=== PATIENT | female | born 1960 | race Caucasian/White ===

== ENCOUNTER 2018-08-18 19:04 | Emergency (ER) | payer OTHER ==
--- OUTSIDE RECORDS SUMMARY | 2018-08-18 19:06 | XMS REPORT | Clinical Summary ---
:1960 Author Organization [facility] Address [address] [place] [address] Care Team Providers Name Role Phone Nilo Carcamo MD Primary Care Provider Allergies No Known Allergies Current Medications Prescription Sig. Disp. Refills Start Date End Date Status glimepiride (AMARYL) Take 2 mg by Active 2 MG tablet mouth daily before breakfast. atorvastatin Take 80 mg by Active (LIPITOR) 80 MG mouth daily. tablet lisinopril Take 40 mg by Active (PRINIVIL,ZESTRIL) 40 mouth daily. mg tablet levothyroxine Take 175 mcg by Active (SYNTHROID, LEVOXYL) mouth every 175 mcg tablet morning. liraglutide (VICTOZA) Inject 1.8 mg Active 0.6 mg/0.1 mL (18 under the skin mg/3 mL) pen injector daily. magnesium oxide 250 Take 250 mg by Active mg tablet mouth daily. aspirin (ECOTRIN) 81 Take 81 mg by Active MG enteric coated mouth daily. tablet warfarin (COUMADIN) Take total of 08/11/2017 Active 10 MG tablet warfarin 11 mg daily amLODIPine (NORVASC) Take 1 tablet 30 tablet 0 08/11/2017 09/10/2017 10 mg tablet (10 mg total) by mouth daily for 30 days. docusate sodium Take 1 capsule 60 capsule 0 08/11/2017 09/10/2017 (COLACE) 100 MG (100 mg total) capsule by mouth 2 (two) times a day for 30 days. polyethylene glycol Take 17 g by 30 packet 0 08/11/2017 09/10/2017 (MIRALAX) 17 gram mouth daily for packet 30 days. HYDROcodone-acetamino Take 1 tablet 08/11/2017 08/26/2017 phen (NORCO) 5-325 mg by mouth every per tablet 6 (six) hours as needed (pain) for up to 15 days. Max Daily Amount: 4 tablets lidocaine (LIDODERM) Place 1 patch 30 patch 0 08/11/2017 09/10/2017 5 % on the skin daily for 30 days. Remove & Discard patch within 12 hours or as directed by warfarin (COUMADIN) 1 Take 1 tablet 30 tablet 0 08/11/2017 09/10/2017 MG tablet (1 mg total) by mouth daily for 30 days. enoxaparin (LOVENOX) Inject 1 mL 60 mL 0 08/11/2017 08/21/2017 100 mg/mL syringe (100 mg total) under the skin every 12 (twelve) hours for 10 days. 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 (Primary Dx); Malignant neoplasm of corpus uteri after 08/17/2017 Immunizations Name Dates Previously Given Next Due Tdap 04/15/2017 Family History Medical History Relation Name Comments COPD Brother Diabetes Brother Heart disease Father Stroke Father Heart disease Mother Relation Name Status Comments Brother Father Mother Social History Tobacco Use Types Packs/Day Years Used Date Never Smoker Alcohol Use Drinks/Week oz/Week Comments No Sex Assigned at Date Recorded Not on file Last Filed Vital Signs Not on file Plan of Treatment Health Maintenance Due Date Last Done Comments CERVICAL CANCER SCREENING 1980 BREAST CANCER SCREENING 2009 COLON CANCER SCREENING 2009 SHINGRIX VACCINE (#1) 2009 INFLUENZA VACCINE 06/07/2018 Procedures Procedure Name Priority Date/Time Associated Diagnosis Comments PET CT SKULL BASE Routine 07/27/2018 10:35 Solitary plasmacytoma Results for this TO MID THIGH AM CDT not having achieved procedure are in remission the results Malignant neoplasm of section. corpus uteri POC GLUCOSE Routine 07/27/2018 9:07 Results for this AM CDT procedure are in the results section. TRANSFUSE FRESH STAT 07/12/2018 5:42 FROZEN PLASMA PM CDT after 08/17/2017 Results PET/CT Skull Base To Mid Thigh (07/27/2018 10:35 AM) Narrative Performed At PROCEDURE:PET CT SKULL BASE TO MID THIGH RADIANT INDICATION:Restaging plasmocytoma, uterine cancer, subsequent treatment strategy. TECHNIQUE:Blood glucose measured at the time of injection was 167 mg/dL. The patient was then injected with 12.1 mCi of 18F-FDG, IV.Approximately one hour later, PET images were acquired from the skull base to the mid thighs. Corresponding, low dose, non-contrast CT scanning was performed as part of the attenuation correction process.Automated dose exposure control was utilized. COMPARISON:PET CT scan dated 07/15/2017. FINDINGS: Head and neck:No suspicious brain uptake.Normal uptake is seen in the visualized sinuses, orbits, nasopharynx, and oropharynx.Uptake by the larynx is normal.No suspicious neck lymph node uptake. Chest:No abnormal mediastinal, hilar, or axillary lymph node uptake.No suspicious pulmonary uptake. Abdomen:Normal uptake is seen in the stomach, spleen, pancreas, liver, and adrenal glands.No abnormal retroperitoneal or mesenteric lymph node uptake.No suspicious bowel uptake.Left-sided feeding tube is noted. Pelvis:Physiologic bowel uptake.No abnormal pelvic sidewall or inguinal lymph node uptake. Review of the osseous structures demonstrates no suspicious uptake.Stable, treated plasmacytoma in the spine and right 12th rib. IMPRESSION: 1.Stable study.No evidence for recurrent plasmacytoma and no evidence for recurrent or metastatic uterine cancer. [facility]-[id number] Procedure Note Interface, Radiology Results Incoming - 07/27/2018 11:50 AM CDT PROCEDURE: PET CT SKULL BASE TO MID THIGH INDICATION: Restaging plasmocytoma, uterine cancer, subsequent treatment strategy. TECHNIQUE: Blood glucose measured at the time of injection was 167 mg/dL. The patient was then injected with 12.1 mCi of 18F-FDG, IV. Approximately one hour later, PET images were acquired from the skull base to the mid thighs. Corresponding, low dose, non-contrast CT scanning was performed as part of the attenuation correction process. Automated dose exposure control was utilized. COMPARISON: PET CT scan dated 07/15/2017. FINDINGS: Head and neck: No suspicious brain uptake. Normal uptake is seen in the visualized sinuses, orbits, nasopharynx, and oropharynx. Uptake by the larynx is normal. No suspicious neck lymph node uptake. Chest: No abnormal mediastinal, hilar, or axillary lymph node uptake. No suspicious pulmonary uptake. Abdomen: Normal uptake is seen in the stomach, spleen, pancreas, liver, and adrenal glands. No abnormal retroperitoneal or mesenteric lymph node uptake. No suspicious bowel uptake. Left-sided feeding tube is noted. Pelvis: Physiologic bowel uptake. No abnormal pelvic sidewall or inguinal lymph node uptake. Review of the osseous structures demonstrates no suspicious uptake. Stable, treated plasmacytoma in the spine and right 12th rib. IMPRESSION: 1. Stable study. No evidence for recurrent plasmacytoma and no evidence for recurrent or metastatic uterine cancer. [facility]-[id number] Performing Organization Address [facility] Cent[facility]ode Phone Number [facility] [address] [place] [address] POC glucose (07/27/2018 9:07 AM) POC glucose 167 (H) 65 - 99 mg/dL [facility] DEPARTMENT OF PATHOLOGY AND Comment: GENOMIC MEDICINE No Action Needed Meter ID: [id number] Field Reviewer: Carlos Lewis Performing Organization Address [facility] Centercode Phone Number [facility] DEPARTMENT OF PATHOLOGY AND [address] [place] [phone] GENOMIC MEDICINE Transfuse fresh frozen plasma (07/12/2018 5:42 PM)after 08/17/2017 Insurance Payer Benefit Plan / Group Subscriber ID Type Phone Address AETNA AETNA HMO,POS,EPO, MC/EC xxxxxxxxx HMO Home: [id number] [phone] [place] [phone]
--- OUTSIDE RECORDS SUMMARY | 2018-08-18 19:07 | XMS REPORT | Clinical Summary ---
:1960 Author Organization [facility] Address [address] [place] [address] Phone Care Team Providers Name Role Phone Unavailable Primary Care Provider Unavailable Allergies No Known Allergies Current Medications Prescription Sig. Disp. Refills Start End Date Status Date aspirin-dipyridamo Take 1 capsule by Active le (AGGRENOX) mouth 2 (two) times 25-200 mg per 12 daily. hr capsule levothyroxine Take 175 mcg by Active (SYNTHROID, mouth Every morning LEVOTHROID) 175 on an empty MCG tablet stomach. heparin injection Inject 1 mL (5,000 1 mL 0 Active 5,000 units/mL for Units total) 8 DVT subcutaneously prophylaxis/dialys every 12 (twelve) is lock/IV bolus hours. liraglutide 0.6 Inject 0.1 mLs (0.6 0 Active mg/0.1 mL (18 mg/3 mg total) 8 mL) PnIj subcutaneously daily. ipratropium Take 2.5 mLs (0.5 75 mL 0 05/26/20 Active (ATROVENT) 0.02 % mg total) by 8 19 nebulizer solution nebulization every 6 (six) hours. glimepiride Take 2 mg by mouth 05/26/20 Discontinued (AMARYL) 2 MG 2 (two) times 18 tablet daily. canagliflozin Take 300 mg by 05/26/20 Discontinued (INVOKANA) 300 mg mouth daily. 18 tablet lisinopril Take 40 mg by mouth 05/26/20 Discontinued (PRINIVIL,ZESTRIL) daily. 18 40 MG tablet metoprolol Take 100 mg by 05/26/20 Discontinued (TOPROL-XL) 100 MG mouth daily. 18 24 hr tablet liraglutide 0.6 Inject 05/26/20 Discontinued mg/0.1 mL (18 mg/3 subcutaneously. 18 mL) PnIj traMADol (ULTRAM) Take 50 mg by mouth 05/26/20 Discontinued 50 mg tablet every 6 (six) hours 18 as needed for Pain. aspirin 81 MG Take 1 tablet (81 90 tablet 1 10/12/20 chewable tablet mg total) by mouth 6 17 daily. atorvastatin Take 1 tablet (80 90 tablet 1 10/12/20 (LIPITOR) 80 MG mg total) by mouth 6 17 tablet nightly. carvedilol (COREG) Take 1 tablet (6.25 0 06/25/20 6.25 MG tablet mg total) by mouth 8 18 2 (two) times daily for 30 days. folic acid Take 1 tablet (1 mg 30 tablet 0 05/26/20 Discontinued (FOLVITE) 1 MG total) by mouth 8 18 tablet daily for 30 days. ipratropium Take 2.5 mLs (0.5 75 mL 0 05/26/20 Discontinued (ATROVENT) 0.02 % mg total) by 8 18 nebulizer solution nebulization every 6 (six) hours. folic acid Take 1 tablet (1 mg 30 tablet 0 06/26/20 (FOLVITE) 1 MG total) by mouth 8 18 tablet daily for 30 days. Active Problems Problem Noted Date Metabolic encephalopathy 05/18/2018 Dysphagia as late effect of cerebrovascular accident (CVA) 05/18/2018 Metabolic acidosis 05/18/2018 Coagulopathy (HCC) 05/18/2018 Bacteremia due to Klebsiella pneumoniae 05/18/2018 Physical deconditioning 05/18/2018 Type 2 diabetes mellitus with neurologic complication, without long-term 05/18 current use of insulin ([facility]) Hyperphosphatemia 05/18/2018 Septic shock ([facility]) 05/15/2018 Acute cholecystitis due to biliary calculus 05/15/2018 Choledocholithiasis with acute cholecystitis 05/15/2018 Acute hypoxemic respiratory failure (HCC) 05/15/2018 Lactic acidosis 05/15/2018 Acute renal failure with tubular necrosis (HCC) 05/15/2018 Anemia 05/15/2018 Sepsis, due to unspecified organism ([facility]) 05/14/2018 Stroke (HCC) 10/06/2016 Encounter for screening for diabetes mellitus 10/06/2016 HTN (hypertension) 10/06/2016 Hypothyroid 10/06/2016 Encounters Date Type Specialty Care Team Description 05/15/2018 Orders Only General Internal Medicine 05/14/2018 - Hospital Encounter General Internal Gurjit Cedeno Sepsis, due to 05/26/2018 Cortney Mendez MD unspecified organism Telma, ([facility]) (Primary Laboy Enrrique, Dx);Septic shock ([facility]);Fever, Simona, Vik unspecified fever MD Brice cause;Lactic Martins, Abner acidosis;Acute MD Judith hypoxemic respiratory failure ([facility]);Acute renal failure, unspecified acute renal failure type ([facility]);Acute cholecystitis due to biliary calculus;Acute encephalopathy;Acute renal failure with tubular necrosis ([facility]);Bacteremia due to Klebsiella pneumoniae;Choledocho lithiasis with acute cholecystitis after 08/17/2017 Social History Tobacco Use Types Packs/Day Years Used Date Never Smoker Smokeless Tobacco: Never Used Tobacco Cessation: Counseling Given: No Alcohol Use Drinks/Week oz/Week Comments Yes 0 Cans of beer 0.0 1 can i beer every couple of months Sex Assigned at Date Recorded Not on file Last Filed Vital Signs Vital Sign Reading Time Taken Blood Pressure 124/59 05/26/2018 6:29 PM CDT Pulse 81 05/26/2018 6:29 PM CDT Temperature 36.7 C (98 F) 05/26/2018 6:29 PM CDT Respiratory Rate 18 05/26/2018 6:29 PM CDT Oxygen Saturation 95% 05/26/2018 6:29 PM CDT Inhaled Oxygen Concentration - - Weight 92.3 kg (203 lb 7.8 oz) 05/22/2018 7:00 AM CDT Height 172.7 cm (5' 8") 05/15/2018 2:30 AM CDT Body Mass Index 30.94 05/22/2018 7:00 AM CDT Plan of Treatment Not on file Procedures Procedure Name Priority Date/Time Associated Diagnosis Comments CENTRAL LINE Routine 05/17/2018 11:28 PM Results for this CDT procedure are in the results section. CRITICAL CARE Routine 05/15/2018 6:16 PM Results for this CDT procedure are in the results section. INSERT EMERGENCY Routine 05/15/2018 6:16 PM Results for this ENDOTRACH AIRWAY CDT procedure are in the results section. VENT MANAGEMENT, Routine 05/15/2018 6:16 PM Results for this INPATIENT, INITIAL CDT procedure are in DAY the results section. US GUIDE, VASCULAR Routine 05/15/2018 6:16 PM Results for this ACCESS CDT procedure are in the results section. INSERT NON-TUNNEL Routine 05/15/2018 6:16 PM Results for this CV CATH CDT procedure are in the results section. after 08/17/2017 Results RHYTHM STRIP - SCAN (05/30/2018 9:01 AM)POC-Glucose meter (05/26/2018 6:28 PM) Only the most recent of55 resultswithin the time period is included. Component Value Ref Range POC-Glucose Meter 153 (H)Comment: TESTED AT [address] 70 - 110 mg/[place] [address] Specimen Performing Laboratory Blood [facility] [address] [address] IR T-tube Catheter Cholangiogram (05/26/2018 5:50 PM) Specimen Performing Laboratory [facility] Narrative FINAL REPORT Cholecystostomy tube evaluation. History: 57-year-old female with shortness cholecystitis status post percutaneous cholecystotomy with decreased drain output Modality: Sonography and fluoroscopy. Sedation: None. Office Machine Servicer Apprentice:Lavon Tillman MD. Inspector Bicycle:None. Approach: Via indwelling cholecystostomy. Estimated blood loss:< 5 cc. Specimen: None. Fluoroscopy Time: 0.5 min. Reference Air Kerma (Ka, r): 11.9 mGy. Technique/findings: Contrast was injected via the indwelling cholecystostomy tube demonstrating free intraperitoneal spill compatible with dislodged catheter. The dislodged catheter was removed and a sterile dressing applied. Limited sonographic images were obtained of the right upper quadrant demonstrating nondistended gallbladder containing gallstones. There is mild gallbladder wall thickening. There is no evidence for pericholecystic fluid or true sonographic Winston's sign. Impression: Cholecystostomy tube evaluation demonstrates dislodged catheter no longer within the gallbladder. Catheter successfully removed without complication. Ultrasound images demonstrate cholelithiasis with nondistended gallbladder. New tube placement currently not indicated (and no leukocytosis or sonographic findings for acute cholecystitis). Signed: Lavon Tillman MD Report Verified Date/Time:05/26/2018 18:37:36 Reading Location: [place] [address] Angio Body Reading Room Procedure Note Interface, External Ris In - 05/26/2018 6:39 PM CDT FINAL REPORT Cholecystostomy tube evaluation. History: 57-year-old female with shortness cholecystitis status post percutaneous cholecystotomy with decreased drain output Modality: Sonography and fluoroscopy. Sedation: None. Office Machine Servicer Apprentice: Lavon Tillman MD. Inspector Bicycle: None. Approach: Via indwelling cholecystostomy. Estimated blood loss: < 5 cc. Specimen: None. Fluoroscopy Time: 0.5 min. Reference Air Kerma (Ka, r): 11.9 mGy. Technique/findings: Contrast was injected via the indwelling cholecystostomy tube demonstrating free intraperitoneal spill compatible with dislodged catheter. The dislodged catheter was removed and a sterile dressing applied. Limited sonographic images were obtained of the right upper quadrant demonstrating nondistended gallbladder containing gallstones. There is mild gallbladder wall thickening. There is no evidence for pericholecystic fluid or true sonographic Winston's sign. Impression: Cholecystostomy tube evaluation demonstrates dislodged catheter no longer within the gallbladder. Catheter successfully removed without complication. Ultrasound images demonstrate cholelithiasis with nondistended gallbladder. New tube placement currently not indicated (and no leukocytosis or sonographic findings for acute cholecystitis). Signed: Lavon Tillman MD Report Verified Date/Time: 05/26/2018 18:37:36 Reading Location: [place] [address] Angio Body Reading Room Hemodialysis (05/26/2018 12:47 PM)Only the most recent of2 resultswithin the time period is included. Narrative Zia Carranza RN 05/26/2018 12:47 PM HD treatment completed, tolerated well. Net UF -1.5L in 4hrs. CVC care provided, packed with heparin as ordered.Pt in stable condition, unable to report to the primary care RN.No answer on the phone, called 3x. Lab Results Component Value Date GLUCOSE 154 (H) 05/26/2018 GLUCOSE 154 (H) 05/26/2018 CALCIUM 8.5 05/26/2018 CALCIUM 8.5 05/26/2018 NA 140 05/26/2018 NA 140 05/26/2018 K 3.6 05/26/2018 K 3.6 05/26/2018 CO2 25 05/26/2018 CO2 25 05/26/2018 CL 101 05/26/2018 CL 101 05/26/2018 BUN 54 (H) 05/26/2018 BUN 54 (H) 05/26/2018 CREATININE 6.06 (H) 05/26/2018 CREATININE 6.06 (H) 05/26/2018 Lab Results Component Value Date WBC 5.1 05/26/2018 HGB 9.0 (L) 05/26/2018 HCT 30.2 (L) 05/26/2018 MCV 83.4 05/26/2018 PLT 225 05/26/2018 Lab Results Component Value Date HEPBSAG Nonreactive 05/17/2018 Prothrombin time/INR (05/26/2018 12:05 PM)Only the most recent of8 resultswithin the time period is included. Component Value Ref Range Protime 13.2 11.7 - 14.7 seconds INR 1.0 <=5.9 Specimen Performing Laboratory Blood - Central Venous Line [address] [address] Narrative RECOMMENDED COUMADIN/WARFARIN INR THERAPY RANGES STANDARD DOSE: 2.0 - 3.0 Includes: PROPHYLAXIS for venous thrombosis, systemic embolization; TREATMENT for venous thrombosis and/or pulmonary embolus. HIGH RISK: Target INR is 2.5-3.5 for patients with mechanical heart valves. Calcium, Ionized (05/26/2018 8:29 AM)Only the most recent of9 resultswithin the time period is included. Component Value Ref Range Calcium, Ion 1.02 (L) 1.12 - 1.27 mmol/L pH, Blood 7.33 Specimen Performing Laboratory Blood - Central Venous Line [address] [address] CBC with platelet count + automated diff (05/26/2018 8:29 AM)Only the most recent of15 resultswithin the time period is included. Component Value Ref Range WBC 5.1 3.5 - 10.5 K/L RBC 3.62 (L) 3.93 - 5.22 M/L Hemoglobin 9.0 (L) 11.2 - 15.7 GM/DL Hematocrit 30.2 (L) 34.1 - 44.9 % MCV 83.4 79.4 - 94.8 fL MCH 24.9 (L) 25.6 - 32.2 pg MCHC 29.8 (L) 32.2 - 35.5 GM/DL RDW 15.3 (H) 11.7 - 14.4 % Platelets 225 150 - 450 K/CU MM MPV 10.2 9.4 - 12.3 fL nRBC 0 0 - 0 /100 WBC % Neutros 72 % % Lymphs 17 % % Monos 8 % % Eos 2 % % Baso 0 % # Neutros 3.64 1.56 - 6.13 K/L # Lymphs 0.87 (L) 1.18 - 3.74 K/L # Monos 0.42 (H) 0.24 - 0.36 K/L # Eos 0.09 0.04 - 0.36 K/L # Baso 0.01 0.01 - 0.08 K/L Immature Granulocytes-Relative 1 0 - 1 % Specimen Performing Laboratory Blood - Central Venous Line [address] [address] CBC with platelet count + automated diff (05/26/2018 8:29 AM)Only the most recent of15 resultswithin the time period is included. Specimen Performing Laboratory Blood Narrative The following orders were created for panel order CBC with platelet count + automated diff. Procedure Abnormality Status --------- ------ CBC with platelet count ...[[id number]]AbnormalFinal result Please view results for these tests on the individual orders. Phosphorus (05/26/2018 8:29 AM)Only the most recent of13 resultswithin the time period is included. Component Value Ref Range Phosphorus 6.0 (H) 2.3 - 4.7 mg/dL Specimen Performing Laboratory Blood - Central Venous Line [address] [address] Magnesium (05/26/2018 8:29 AM)Only the most recent of14 resultswithin the time period is included. Component Value Ref Range Magnesium 2.1 1.6 - 2.6 mg/dL Specimen Performing Laboratory Blood - Central Venous Line [address] [address] Hepatic function panel (05/26/2018 8:29 AM)Only the most recent of12 resultswithin the time period is included. Component Value Ref Range Protein, Total 6.3 6.0 - 8.3 gm/dL Albumin 3.2 (L) 3.5 - 5.0 g/dL Total Bilirubin 0.4 0.2 - 1.2 mg/dL Bilirubin, Direct 0.3 0.1 - 0.5 mg/dL Alkaline Phosphatase 406 (H) 40 - 150 U/L AST 23 5 - 34 U/L ALT 24 6 - 55 U/L Specimen Performing Laboratory Blood - Central Venous Line [address] [address] Comprehensive metabolic panel (05/26/2018 8:29 AM)Only the most recent of8 resultswithin the time period is included. Component Value Ref Range Protein, Total 6.3 6.0 - 8.3 gm/dL Albumin 3.2 (L) 3.5 - 5.0 g/dL Alkaline Phosphatase 406 (H) 40 - 150 U/L Total Bilirubin 0.4 0.2 - 1.2 mg/dL Sodium 140 136 - 145 meq/L Potassium 3.6 3.5 - 5.1 meq/L Chloride 101 98 - 107 meq/L CO2 25 22 - 29 meq/L BUN 54 (H) 7 - 21 mg/dL Creatinine 6.06 (H) 0.57 - 1.25 mg/dL Glucose 154 (H) 70 - 105 mg/dL Calcium 8.5 8.4 - 10.2 mg/dL AST 23 5 - 34 U/L ALT 24 6 - 55 U/L EGFR 7Comment: ESTIMATED GFR IS NOT ACCURATE mL/min/1.73 sq m CREATININE CLEARANCE IN PREDICTING GLOMERULAR FILTRATION RATE. ESTIMATED GFR IS NOT APPLICABLE FOR DIALYSIS PATIENTS. Specimen Performing Laboratory Blood - Central Venous Line [address] [address] Basic Metabolic Panel (05/26/2018 8:29 AM)Only the most recent of11 resultswithin the time period is included. Component Value Ref Range Sodium 140 136 - 145 meq/L Potassium 3.6 3.5 - 5.1 meq/L Chloride 101 98 - 107 meq/L CO2 25 22 - 29 meq/L BUN 54 (H) 7 - 21 mg/dL Creatinine 6.06 (H) 0.57 - 1.25 mg/dL Glucose 154 (H) 70 - 105 mg/dL Calcium 8.5 8.4 - 10.2 mg/dL EGFR 7Comment: ESTIMATED GFR IS NOT ACCURATE CREATININE mL/min/1.73 sq m CLEARANCE IN PREDICTING GLOMERULAR FILTRATION RATE. ESTIMATED GFR IS NOT APPLICABLE FOR DIALYSIS PATIENTS. Specimen Performing Laboratory Blood - [place] [address] US abdomen limited (05/26/2018 1:38 AM)Only the most recent of2 resultswithin the time period is included. Specimen Performing Laboratory [employer] FINAL REPORT Exam: Limited abdominal ultrasound. Clinical History:cholecystostomy tube placement . Findings: Sonographic evaluation of the right upper quadrant of the abdomen was performed. Comparison is made to abdominal ultrasound 05/15/2018. Liver: 19.1 cm in length at the right midclavicular line. Increased echogenicity.No lesion is identified by ultrasound. Main portal vein is patent measuring 1.3 cm in diameter, and demonstrates hepatopetal flow. Biliary tree:Common duct 7 mm (top normal).No intrahepatic biliary ductal dilatation. Gallbladder:There is a cholecystostomy tube in place. The gallbladder is mildly distended and contains multiple stones and sludge. There is mild gallbladder wall thickening measuring 5 mm, nonspecific.There is no pericholecystic fluid or sonographic Winston's sign. Pancreas: Partially visualized, unremarkable. Ascites:None seen. Right kidney:12.4 x 6.3 x 5.9 cm with cortical thickness of 1.5 cm. Normal cortical echogenicity.No mass.No shadowing calculus.No hydronephrosis. IVC/Aorta:Segments partially seen.Unremarkable. Impression: Cholecystostomy tube in place. Cholelithiasis without definite sonographic evidence of acute cholecystitis. No biliary ductal dilatation. Hepatomegaly. Echogenic liver which may be seen with parenchymal disease such as fatty infiltration. Signed: Rashi Hdz MD Report Verified Date/Time:05/26/2018 04:03:41 Reading Location: [address] Body Reading Room Procedure Note Interface, External Ris In - 05/26/2018 4:05 AM CDT FINAL REPORT Exam: Limited abdominal ultrasound. Clinical History: cholecystostomy tube placement . Findings: Sonographic evaluation of the right upper quadrant of the abdomen was performed. Comparison is made to abdominal ultrasound 05/15/2018. Liver: 19.1 cm in length at the right midclavicular line. Increased echogenicity. No lesion is identified by ultrasound. Main portal vein is patent measuring 1.3 cm in diameter, and demonstrates hepatopetal flow. Biliary tree: Common duct 7 mm (top normal). No intrahepatic biliary ductal dilatation. Gallbladder: There is a cholecystostomy tube in place. The gallbladder is mildly distended and contains multiple stones and sludge. There is mild gallbladder wall thickening measuring 5 mm, nonspecific. There is no pericholecystic fluid or sonographic Winston's sign. Pancreas: Partially visualized, unremarkable. Ascites: None seen. Right kidney: 12.4 x 6.3 x 5.9 cm with cortical thickness of 1.5 cm. Normal cortical echogenicity. No mass. No shadowing calculus. No hydronephrosis. IVC/Aorta: Segments partially seen. Unremarkable. Impression: Cholecystostomy tube in place. Cholelithiasis without definite sonographic evidence of acute cholecystitis. No biliary ductal dilatation. Hepatomegaly. Echogenic liver which may be seen with parenchymal disease such as fatty infiltration. Signed: Rashi Hdz MD Report Verified Date/Time: 05/26/2018 04:03:41 Reading Location: [address] Body Reading Room Potassium (05/25/2018 4:44 PM) Component Value Ref Range Potassium 3.8 3.5 - 5.1 meq/L Specimen Performing Laboratory Blood - Arm, Left [address] [address] [place] aspiration or injection (05/24/2018 11:58 AM) Specimen Performing Laboratory [facility] Narrative FINAL REPORT Indication: cholecystostomy tube-low output TECHNIQUE: Fluoroscopy-guided injection of the cholecystostomy tube was attempted. After obtaining a flooring salesperson view, contrast injection of the cholecystostomy tube was unsuccessfully attempted. COMPARISON: None Total fluoroscopy time: 0.3 minutes Total number of fluoroscopy images: Four Discussion: The flooring salesperson view demonstrates a cholecystostomy catheter in the right upper abdomen laterally. Despite multiple attempts to inject contrast into the cholecystostomy tube, there is significant resistance to injection and no contrast was seen in the tube or gallbladder lumen likely secondary to clogged cholecystostomy tube. Signed: Richard Martin MD Report Verified Date/Time:05/24/2018 12:51:56 Reading Location: [address] Ortho Consult Reading Room Procedure Note Interface, External Ris In - 05/24/2018 12:54 PM CDT FINAL REPORT Indication: cholecystostomy tube-low output TECHNIQUE: Fluoroscopy-guided injection of the cholecystostomy tube was attempted. After obtaining a flooring salesperson view, contrast injection of the cholecystostomy tube was unsuccessfully attempted. COMPARISON: None Total fluoroscopy time: 0.3 minutes Total number of fluoroscopy images: Four Discussion: The flooring salesperson view demonstrates a cholecystostomy catheter in the right upper abdomen laterally. Despite multiple attempts to inject contrast into the cholecystostomy tube, there is significant resistance to injection and no contrast was seen in the tube or gallbladder lumen likely secondary to clogged cholecystostomy tube. Signed: Richard Martin MD Report Verified Date/Time: 05/24/2018 12:51:56 Reading Location: [address] Consult Reading Room esoph swallow funct with cine video (05/24/2018 11:47 AM) Specimen Performing Laboratory [facility] Narrative FINAL REPORT Modified barium swallow with speech pathology History: dysphagia Technique: Modified barium swallow was performed in conjunction with speech pathology. Examination utilized various textures of barium. Fluoroscopic observation was performed during swallowing. Total fluoroscopy time: 1.2 minutes Total number of films: 1 IMPRESSION: There is silent laryngeal aspiration with thin, nectar thick and honey thick liquid barium. Please refer to the speech pathology report for further details. Signed: Richard Martin MD Report Verified Date/Time:05/24/2018 12:11:37 Reading Location: [address] Ortho Consult Reading Room Procedure Note Interface, External Ris In - 05/24/2018 12:13 PM CDT FINAL REPORT Modified barium swallow with speech pathology History: dysphagia Technique: Modified barium swallow was performed in conjunction with speech pathology. Examination utilized various textures of barium. Fluoroscopic observation was performed during swallowing. Total fluoroscopy time: 1.2 minutes Total number of films: 1 IMPRESSION: There is silent laryngeal aspiration with thin, nectar thick and honey thick liquid barium. Please refer to the speech pathology report for further details. Signed: Richard Martin MD Report Verified Date/Time: 05/24/2018 12:11:37 Reading Location: [facility] [id number] Ortho Consult Reading Room Hemoglobin A1c (05/24/2018 7:15 AM) Component Value Ref Range Hemoglobin A1C 6.8 (H) 4.3 - 6.1 % Specimen Performing [place] [address] IR Tunneled Catheter Insertion (05/23/2018 4:15 PM) Specimen Performing Laboratory [facility] Narrative FINAL REPORT Tunneled dialysis catheter insertion History: Renal failure. Modality: Fluoroscopy. SEDATION: Moderate sedation was administered 1 mg of Versed and 50 mcg of fentanyl IV was used for moderate sedation monitored under my direction. Total intraservice time of sedation was 30 minutes. The patient's vital signs were monitored throughout the procedure and recorded in the patient's medical record by the nurse sedation. Office Machine Servicer Apprentice:Aquiles Franco MD. Inspector Bicycle:None. Approach: Right internal jugular vein Estimated blood loss:< 5 cc. Specimen: None. Reference air kerma (Ka, r): 28.5 mGy Fluoroscopy time: 1.6 min Technique: Informed written consent was obtained. Discussion of risks, benefits, and alternatives were made with the patient's medical proxy. The patient's medical proxy expressed understanding and agreed to proceed.A universal timeout was performed prior to starting the procedure.All elements maximal sterile barrier technique was utilized for this procedure, including utilization of sterile scrub solution for skin and catheter prep, a large sterile sheet to cover the areas of the patient that were not prepped, and hand hygiene, mask, head covering, and sterile gown for performing radiologist and scrub technologist. An 0.035 wire was advanced into the existing catheter. A subcutaneous tunnel was created in the right anterior chest wall by blunt dissection.A 19 cm 15.5 Croatian tunnel dialysis catheter was brought through the tunnel. The existing nontunneled catheter was removed over the wire in a sterile fashion. The vessel tract was serially dilated over a J-wire. A peel-away sheath was placed in the right IJ vein and the catheter was advanced through the sheath, with its distal tip terminating in the right atrium.The peel-away sheath was removed. The ports were flushed and aspirated easily following placement.The catheter was sutured to the skin with 2-0 Prolene to secure its placement.The small jugular incision site was closed using resorbable suture. Vital signs were monitored throughout the procedure by a nurse, and remained stable.The patient tolerated the procedure well and left the department in the same condition.The patient was given 1 gram of Ancef intravenously during the procedure. Results:Spot radiograph of the chest demonstrates the new dialysis catheter to lie in the expected position with its tip overlying the superior right atrium. Impression: Successful, uncomplicated placement of a right internal jugular tunneled dialysis catheter using fluoroscopic guidance and conscious sedation.The catheter is ready for immediate use. Signed: Aquiles Franco MD Report Verified Date/Time:05/23/2018 17:41:03 Reading Location: [address] Body Reading Room Procedure Note Interface, External Ris In - 05/23/2018 5:43 PM CDT FINAL REPORT Tunneled dialysis catheter insertion History: Renal failure. Modality: Fluoroscopy. SEDATION: Moderate sedation was administered 1 mg of Versed and 50 mcg of fentanyl IV was used for moderate sedation monitored under my direction. Total intraservice time of sedation was 30 minutes. The patient's vital signs were monitored throughout the procedure and recorded in the patient's medical record by the nurse sedation. Office Machine Servicer Apprentice: Aquiles Franco MD. Inspector Bicycle: None. Approach: Right internal jugular vein Estimated blood loss: < 5 cc. Specimen: None. Reference air kerma (Ka, r): 28.5 mGy Fluoroscopy time: 1.6 min Technique: Informed written consent was obtained. Discussion of risks, benefits, and alternatives were made with the patient's medical proxy. The patient's medical proxy expressed understanding and agreed to proceed. A universal timeout was performed prior to starting the procedure. All elements maximal sterile barrier technique was utilized for this procedure, including utilization of sterile scrub solution for skin and catheter prep, a large sterile sheet to cover the areas of the patient that were not prepped, and hand hygiene, mask, head covering, and sterile gown for performing radiologist and scrub technologist. An 0.035 wire was advanced into the existing catheter. A subcutaneous tunnel was created in the right anterior chest wall by blunt dissection. A 19 cm 15.5 Croatian tunnel dialysis catheter was brought through the tunnel. The existing nontunneled catheter was removed over the wire in a sterile fashion. The vessel tract was serially dilated over a J-wire. A peel-away sheath was placed in the right IJ vein and the catheter was advanced through the sheath, with its distal tip terminating in the right atrium. The peel-away sheath was removed. The ports were flushed and aspirated easily following placement. The catheter was sutured to the skin with 2-0 Prolene to secure its placement. The small jugular incision site was closed using resorbable suture. Vital signs were monitored throughout the procedure by a nurse, and remained stable. The patient tolerated the procedure well and left the department in the same condition. The patient was given 1 gram of Ancef intravenously during the procedure. Results: Spot radiograph of the chest demonstrates the new dialysis catheter to lie in the expected position with its tip overlying the superior right atrium. Impression: Successful, uncomplicated placement of a right internal jugular tunneled dialysis catheter using fluoroscopic guidance and conscious sedation. The catheter is ready for immediate use. Signed: Aquiles Franco MD Report Verified Date/Time: 05/23/2018 17:41:03 Reading Location: [facility] P048 Angio Body Reading Room /aPTT (05/22/2018 5:06 AM) Component Value Ref Range Protime 14.7 11.7 - 14.7 seconds INR 1.2 <=5.9 PTT 32.0 22.5 - 36.0 seconds Specimen Performing Laboratory Blood [address] [address] Narrative RECOMMENDED COUMADIN/WARFARIN INR THERAPY RANGES STANDARD DOSE: 2.0 - 3.0 Includes: PROPHYLAXIS for venous thrombosis, systemic embolization; TREATMENT for venous thrombosis and/or pulmonary embolus. HIGH RISK: Target INR is 2.5-3.5 for patients with mechanical heart valves. Iron, TIBC, % sat. (without ferritin) (05/21/2018 4:52 AM)Only the most recent of3 resultswithin the time period is included. Component Value Ref Range Iron 19 (L) 40 - 160 ug/dL TIBC 198 (L) 250 - 450 ug/dL Iron % Saturation 10 (L) 20 - 55 % Specimen Performing Laboratory Blood [address] [address] Reticulocyte count (05/21/2018 4:52 AM)Only the most recent of2 resultswithin the time period is included. Component Value Ref Range % Retic 0.6 0.5 - 1.7 % Specimen Performing Laboratory Blood [address] [address] Ferritin (05/21/2018 4:52 AM)Only the most recent of3 resultswithin the time period is included. Component Value Ref Range Ferritin 322 (H) 5 - 275 ng/mL Specimen Performing Laboratory [address] [address] XR abdomen / KUB 1 view (05/20/2018 4:05 PM)Only the most recent of3 resultswithin the time period is included. Specimen Performing Laboratory GE RIS Narrative FINAL REPORT History: Feeding tube placement COMPARISON: 05/19/2018 DISCUSSION: A single frontal view of the abdomen was submitted for interpretation. A feeding tube catheter is identified with the tip projecting over the expected location of the mid body of the stomach. Signed: Pina Cohen MD Report Verified Date/Time:05/20/2018 16:40:25 Reading Location: [address] Consult Reading Room Procedure Note Interface, External Ris In - 05/20/2018 4:42 PM CDT FINAL REPORT History: Feeding tube placement COMPARISON: 05/19/2018 DISCUSSION: A single frontal view of the abdomen was submitted for interpretation. A feeding tube catheter is identified with the tip projecting over the expected location of the mid body of the stomach. Signed: Pina Cohen MD Report Verified Date/Time: 05/20/2018 16:40:25 Reading Location: [address] Consult Reading Room Oxygen saturation, measured (05/20/2018 5:57 AM) Component Value Ref Range O2 Saturation (Measured) 95.3 % Specimen Performing [place] [address] Narrative If patient has internal jugular ( IJ) or subclavian central line or PICC line. Draw from distal port. Label as central venous oxygen. EEG AWAKE AND DROWSY (05/18/2018 9:51 AM)Only the most recent of2 resultswithin the time period is included. Specimen Performing Laboratory GE RIS Narrative [facility] EEG REPORT DATE OF TEST: 05-18-2018 DATE OF REPORT: 05-18-2018 ACC: [id number] Start time:09:30 Stop time:09:51 ICD-10:R 56.9 CPT Code: 85905 HISTORY: 57 y old female with h/o diabetes, hypertension, strokes, liver and kidney diseasepresents with alteration of mental status. MEDICATIONS: fentanyl, insulin TECHNICAL SUMMARY: This is a digital video EEG recorded with 32 input channels reviewed with bipolar and referential montages using the modified combinatorial system nomenclature. DESCRIPTION OF RECORD: During the maximally alert state, a 5-6 Hz posterior dominant rhythm was seen that was symmetric, reactive to eye opening. The background consists of continuous 4-6 Hz theta and admixed intermittent, reactive 1-2 Hz polymorphic delta activity. Drowsiness was characterized by increased frontocentral theta, vertex sharp transients.Stage 2 sleep was not reached. HV: Hyperventilation was not performed. PHOTIC STIMULATION: Photic stimulation was not done. VIDEO EVENTS RECORDED: none ELECTROCARDIOGRAM EVENTS: none IMPRESSION: Abnormal awake and drowsy EEG a. Presence of slow posterior dominant rhythm b. Presence of intermittent reactive delta-theta slowing CLINICAL CORRELATION: Presence of slow posterior dominant rhythm and delta-theta slowing are consistent with moderate degree of encephalopathy. An EEG without epileptiform discharges does not exclude the possibility of epilepsy.If the clinical suspicion of epilepsy remains, consider additional EEG recordings. Gurvinder Henry MD Neurophysiology Fellow Petr Winston M.D., DARCIE PENG FAES Professor of Neurology, [facility] Director, [facility], [facility] Neurophysiology Lab Procedure Note Interface, External Ris In - 05/18/2018 2:24 PM CDT [facility] EEG REPORT DATE OF TEST: 05-18-2018 DATE OF REPORT: 05-18-2018 ACC: [id number] Start time: 09:30 Stop time: 09:51 ICD-10: R 56.9 CPT Code: 15141 HISTORY: 57 y old female with h/o diabetes, hypertension, strokes, liver and kidney disease presents with alteration of mental status. MEDICATIONS: fentanyl, insulin TECHNICAL SUMMARY: This is a digital video EEG recorded with 32 input channels reviewed with bipolar and referential montages using the modified combinatorial system nomenclature. DESCRIPTION OF RECORD: During the maximally alert state, a 5-6 Hz posterior dominant rhythm was seen that was symmetric, reactive to eye opening. The background consists of continuous 4-6 Hz theta and admixed intermittent, reactive 1-2 Hz polymorphic delta activity. Drowsiness was characterized by increased frontocentral theta, vertex sharp transients. Stage 2 sleep was not reached. HV: Hyperventilation was not performed. PHOTIC STIMULATION: Photic stimulation was not done. VIDEO EVENTS RECORDED: none ELECTROCARDIOGRAM EVENTS: none IMPRESSION: Abnormal awake and drowsy EEG a. Presence of slow posterior dominant rhythm b. Presence of intermittent reactive delta-theta slowing CLINICAL CORRELATION: Presence of slow posterior dominant rhythm and delta-theta slowing are consistent with moderate degree of encephalopathy. An EEG without epileptiform discharges does not exclude the possibility of epilepsy. If the clinical suspicion of epilepsy remains, consider additional EEG recordings. Gurvinder Henry MD Neurophysiology Fellow Petr Winston M.D., DANISH, DARCIE, THOMAS Professor of Neurology, [facility] Director, [facility], [facility] Neurophysiology Lab Blood gas, arterial (05/18/2018 3:14 AM)Only the most recent of11 resultswithin the time period is included. Component Value Ref Range pH, Arterial 7.38 7.35 - 7.45 pCO2, Arterial 50 (H) 35 - 45 mmHg pO2, Arterial 170 (H) 80 - 90 mmHg O2 Sat, Arterial 99.1 (H) 96.0 - 97.0 % HCO3, Arterial 29 21 - 29 mmol/L Base Excess, Arterial 3.5 (H) -2.0 - 3.0 mmol/L Patient Temperature 37.0 C FIO2 30.0 % Specimen Performing Laboratory Blood, Arterial [address] [address] Manual Differential (05/18/2018 3:13 AM)Only the most recent of4 resultswithin the time period is included. Component Value Ref Range % Neutros 82 % % Lymphs 13 % % Monos 5 % # Neutros 10.17 (H) 1.56 - 6.13 K/ul # Lymphs 1.61 1.18 - 3.74 K/ul # Monos 0.62 (H) 0.24 - 0.36 K/uL Total Counted 100 WBC Morphology Normal Platelet Morphology Normal Anisocytosis 1+ few Microcytes 1+ few Poikilocytes 1+ few Artifact Present Platelet Conc Decreased Specimen Performing Laboratory Blood [address] [address] Narrative Received comment: User comments: Slide comments: Central Line (05/17/2018 11:28 PM) Narrative Sherri Savage MD 05/17/2018 12:45 PM Central Line Procedure Note 05/17/2018, 12:43 PM Procedure: hemodialysis catheter placement Indication: acute renal injury Construction Executive(s): Sherri Savage MD Consent: signed Site:left}, internal jugular vein Anesthesia: 5cc 2% lidocaine without epinephrine Description: Area prepped with chlorhexidine and draped in a sterile manner. 1% lidocaine given for local anesthesia. Catheter inserted using Seldinger technique. All ports danielle blood and were flushed with normal saline. Cath sutured in place and a sterile dressing applied. Ultrasound guidance used: Yes.Image was not saved to ultrasound machine. EBL: 5cc Complications: No PCXR: pending Sherri Savage DO Critical care fellow physician Department of Internal Medicine May 17, 2018 12:43 PM TRANSFUSION SERVICE REPORT - SCAN (05/17/2018 6:02 PM)Only the most recent of2 resultswithin the time period is included.XR chest 1 view portable / bedside ( 4:18 PM)Only the most recent of5 resultswithin the time period is included. Specimen Performing Laboratory GE RIS Narrative FINAL REPORT EXAM: Frontal chest radiograph HISTORY PROVIDED: Trialysis line placement COMPARISON: 05/17/2018 at 1151 IMPRESSION: There has been interval placement of a right IJ central venous catheter with the tip projecting over the cavoatrial junction. The other right IJ catheter and the left IJ catheter have been removed. Remaining support lines and tubes are in unchanged position. Pulmonary vascular congestion persists without overt pulmonary edema. No pneumothorax or significant pleural fluid. Cardiomediastinal contours are stable. Signed: Paul Ellis MD Report Verified Date/Time:05/17/2018 16:34:19 Reading Location: [facility] Reading Room Procedure Note Interface, External Ris In - 05/17/2018 4:36 PM CDT FINAL REPORT EXAM: Frontal chest radiograph HISTORY PROVIDED: Trialysis line placement COMPARISON: 05/17/2018 at 1151 IMPRESSION: There has been interval placement of a right IJ central venous catheter with the tip projecting over the cavoatrial junction. The other right IJ catheter and the left IJ catheter have been removed. Remaining support lines and tubes are in unchanged position. Pulmonary vascular congestion persists without overt pulmonary edema. No pneumothorax or significant pleural fluid. Cardiomediastinal contours are stable. Signed: Paul Ellis MD Report Verified Date/Time: 05/17/2018 16:34:19 Reading Location: [facility] Reading Room Hepatitis B Panel (05/17/2018 10:19 AM) Component Value Ref Range Hep B Core Total Ab Reactive (A) Nonreactive Hep B S Ab <8.0 <8.0 mIU/mL hepatitis B Surface Ag Nonreactive Nonreactive Specimen Performing Laboratory Blood [address] [address] Prepare plasma (05/16/2018 11:54 PM)Only the most recent of3 resultswithin the time period is included. Component Value Ref Range Unit ABO O Pos UNIT NUMBER [id number] Status TRANSFUSED Blood Bank Product FFP PRODUCT CODE [id number] Unit ABO O Pos UNIT NUMBER [id number] Status TRANSFUSED Blood Bank Product FFP PRODUCT CODE [id number] Specimen Performing Laboratory Blood [place] Blood culture (05/16/2018 12:55 PM)Only the most recent of4 resultswithin the time period is included. Component Value Ref Range Result No growth in 5 days Specimen Performing Laboratory Blood - Central Venous Line [address] [address] Troponin I (05/16/2018 12:49 PM)Only the most recent of6 resultswithin the time period is included. Component Value Ref Range Troponin I 0.51 (HH) 0.00 - 0.03 ng/mL Specimen Performing Laboratory Blood - Line, Arterial [address] [address] Narrative Troponin I (TnI) levels must be interpreted in the context of the presenting symptoms and the clinical findings. Elevated TnI levels indicate myocardial damage, but are not specific for ischemic heart disease. Elevated TnI levels are seen in patients with other cardiac conditions (including myocarditis and congestive heart failure), and slight TnI elevations occur in patients with other conditions, including sepsis, renal failure, acidosis, acute neurological disease, and persistent tachyarrhythmia. Call [phone] ECHOCARDIOGRAM REPORT - SCAN (05/16/2018 9:50 AM)Lactic acid, arterial, whole blood (05/16/2018 3:47 AM)Only the most recent of4 resultswithin the time period is included. Component Value Ref Range Lactate, Art 1.6 0.5 - 2.2 mmol/L Specimen Performing Laboratory Blood, Arterial [address] [address] Narrative Effective 03/10/2016: Units/Reference Range Change New: 0.5-2.2 mmol/LPrevious: 5-20 mg/dL Fibrinogen (05/16/2018 3:45 AM) Component Value Ref Range Fibrinogen 712 (H) 225 - 434 mg/dl Specimen Performing Laboratory Blood [address] [address] Lactic acid, venous, whole blood Daily (05/16/2018 1:49 AM)Only the most recent of5 resultswithin the time period is included. Component Value Ref Range Lactate, Venous 1.6 0.5 - 2.2 mmol/L Specimen Performing Laboratory Blood [address] [address] Narrative Effective 03/10/2016: Units/Reference Range Change New: 0.5-2.2 mmol/LPrevious: 5-20 mg/dL B-type Natriuretic Factor (BNP) (05/16/2018 1:49 AM)Only the most recent of2 resultswithin the time period is included. Component Value Ref Range BNP 406 (H) 0 - 100 pg/mL Specimen Performing Laboratory Blood [address] [address] Creatine Kinase (CK) (05/16/2018 1:49 AM) Component Value Ref Range Total CK 684 (H) 29 - 200 U/L Specimen Performing Laboratory [address] [address] Sodium, random urine (05/15/2018 8:00 PM)Only the most recent of2 resultswithin the time period is included. Component Value Ref Range Sodium Urine 122 meq/L Specimen Performing Laboratory Urine - Urine, [address] [address] Narrative Reference Range: No Normals Creatinine, random urine (05/15/2018 8:00 PM)Only the most recent of2 resultswithin the time period is included. Component Value Ref Range Creatinine, Ur 50.3 mg/dL Specimen Performing Laboratory Urine - Urine, [address] [address] Narrative Reference Range: No Normals ED INTUBATION (05/15/2018 6:16 PM) Narrative Gurjit Cedeno MD 05/15/20186:16 PM Intubation Date/Time: 05/14/2018 10:18 PM Performed by: GURJIT CEDENO Authorized by: GURJIT CEDENO Consent: The procedure was performed in an emergent situation. Indications: respiratory distress,respiratory failure andairway protection Intubation method: fiberoptic oral Patient status: paralyzed (RSI) Preoxygenation: BVM Sedatives: etomidate Paralytic: succinylcholine Tube size: 7.5 mm Tube type: cuffed Number of attempts: 1 Cricoid pressure: no Cords visualized: yes Breath sounds: equal Cuff inflated: yes ETT to lip: 24 cm Tube secured with: ETT vences Chest x-ray interpreted by me. Chest x-ray findings: endotracheal tube in appropriate position Patient tolerance: Patient tolerated the procedure well with no immediate complications ED ECG Interpretation (05/15/2018 6:16 PM) Gurjit Beckham MD 05/15/20186:16 PM ECG/EKG Interpretation Date/Time: 05/14/2018 9:41 PM Performed by: GURJIT CEDENO Authorized by: GURJIT CEDENO The ECG was interpreted by ED physician. The ECG is interpreted as sinus tachycardia. Heart rate is 151 BPM. Patient tolerance: Patient tolerated the procedure well with no immediate complications Comments: Sinus tachycardia on monitor Critical Care (05/15/2018 6:16 PM) Gurjit Beckham MD 05/15/20186:16 PM Critical Care Performed by: GURJIT CEDENO Authorized by: GURJIT CEDENO Total critical care time: 80 minutes Critical care time was exclusive of separately billable procedures and treating other patients. Critical care was necessary to treat or prevent imminent or life-threatening deterioration of the following conditions: sepsis, dehydration, shock, renal failure, metabolic crisis and circulatory failure. Critical care was time spent personally by me on the following activities: development of treatment plan with patient or surrogate, discussions with consultants, evaluation of patient's response to treatment, examination of patient, obtaining history from patient or surrogate, ordering and performing treatments and interventions, ordering and review of laboratory studies, ordering and review of radiographic studies, review of old charts, pulse oximetry and re-evaluation of patient's condition. Comments: I provided medically necessary Critical Care on an emergent basis in order to prevent any sudden, clinically significant deterioration in her condition. Critical care time:80min It is my opinion that her clinical presentation, without appropriate emergent intervention has the potential to acutely impair one or more of her vital organ systems with a high probability of imminent deterioration in her condition. The time involved in the performance of separately reportable procedures or teaching time was not counted towards the critical care time that is documented here. Central Line (05/15/2018 6:16 PM) Narrative Gurjit Cedeno MD 05/15/20186:16 PM Central Line Date/Time: 05/14/2018 10:17 PM Performed by: GURJIT CEDENO Authorized by: GURJIT CEDENO Consent: The procedure was performed in an emergent situation. Indications: vascular access Sedation: Patient sedated: no Preparation: skin prepped with ChloraPrep Skin prep agent dried: skin prep agent completely dried prior to procedure Sterile barriers: all five maximum sterile barriers used - cap, mask, sterile gown, sterile gloves, and large sterile sheet Hand hygiene: hand hygiene performed prior to central venous catheter insertion Location details: right internal jugular Patient position: flat Catheter type: single lumen Catheter size: 7 Fr Pre-procedure: landmarks identified Ultrasound guidance: yes Sterile ultrasound techniques: sterile gel and sterile probe covers were used Number of attempts: 1 Successful placement: yes Post-procedure: line sutured and dressing applied Assessment: blood return through all ports Patient tolerance: Patient tolerated the procedure well with no immediate complications Immediate Post-Procedure Note Assistants to the procedure: None Pre-procedure diagnosis: sepsis Post-procedure diagnosis: sepsis Procedures Performed: Central Line Specimens removed: None Estimated blood loss (mL): None Complications: None Type of anesthesia: None Grafts or Implants: None Hemoglobin and hematocrit (05/15/2018 4:00 PM) Component Value Ref Range Hemoglobin 9.3 (L) 11.2 - 15.7 GM/DL Hematocrit 29.0 (L) 34.1 - 44.9 % Specimen Performing Laboratory Blood [address] [address] Lactate dehydrogenase (LDH) (05/15/2018 4:00 PM) Component Value Ref Range LDH 292 (H) 125 - 220 U/L Specimen Performing Laboratory Blood [address] [address] Narrative Call [phone] Haptoglobin (05/15/2018 4:00 PM) Component Value Ref Range Haptoglobin 213 14 - 258 mg/dL Specimen Performing Laboratory Blood [address] [address] Urea Nitrogen, random urine (05/15/2018 11:38 AM) Component Value Ref Range Urea Nitrogen, Ur 165 mg/dL Specimen Performing Laboratory Urine - Urine, Sterile Collection [address] [address] Narrative Reference Range: No Normals Protein, random urine (05/15/2018 11:38 AM) Component Value Ref Range Protein, Urine 1313 (H) 0 - 14 mg/dL Specimen Performing Laboratory Urine - Urine, Sterile Collection [address] [address] Urinalysis w/Microscopic (05/15/2018 11:38 AM)Only the most recent of2 resultswithin the time period is included. Component Value Ref Range Color, UA Brown Clarity, UA Cloudy Specific [place], UA 1.018 1.001 - 1.035 pH, UA 6.0 5.0 - 8.0 Protein, UA 600 mg/dL (A) Negative Glucose, UA 150 mg/dL (A) Negative Ketones, UA Trace (A) Negative Bilirubin, UA Positive (A) Negative Blood, UA Moderate (A) Negative Nitrite, UA Negative Negative Leukocytes, UA Small (A) Negative Urobilinogen, UA 6.0 (H) 0.2 - 1.0 mg/dL RBC, UA 0 /HPF WBC, UA 0 /HPF Specimen Source Urine, Voided Specimen Performing Laboratory Urine - Urine, Voided [address] [address] Creatine Kinase (CK), Total and MB (05/15/2018 11:38 AM)Only the most recent of2 resultswithin the time period is included. Component Value Ref Range Total CK 869 (H) 29 - 200 U/L CK-MB 7.0 (H) 0.0 - 6.6 ng/mL MB Relative Index 0.8 % Specimen Performing Laboratory Blood [address] [address] Narrative CK-MB Reference Range: <6.7Normal 6.7-10.0Borderline >10.0 Abnormal Eosinophil smear (05/15/2018 11:36 AM) Component Value Ref Range Eosinophil Smear No EOS seen No EOS seen Specimen Performing Laboratory Urine [facility] [address] [address] 2D Echo W/Doppler (Sepsis Protocol) (05/15/2018 9:28 AM) Component Value Ref Range Ejection Fraction Specimen Performing Laboratory SLE ECHO HEARTLAB MKCKESSON CPACS Narrative Transthoracic Echocardiography Report (TTE) Demographics Patient Name Karlee RAMOS of Study 05/15/2018 DORETHA [id number] Female Visit Number [id number] Room Number [id number] Number Date of Birth1960Referring Physician DO Wu Forman Age57 year(s)Java Tech KE Montesinos Interpreting [facility] Needs to be Pre Physician Read Donna Conner MD Procedure Type of Study TTE procedure:2DECHO W DOPPLER(CW/PW/COLOR) (ARCHANA) Indications:Sepsis protocol. Clinical History DIABETES, HTN, STROKE, OBESITY HGB 9.5 HCT 31.1 % Contrast Medium: Definity. Amount - 2 ml Height: 68 inches Weight: 108.41 kg (239 lbs) BSA: 2.2 m^2 BMI: 36.34 kg/m^2 HR: 114 bpm BP: 110/68 mmHg Summary Technically difficult study. Patient intubated. Tachycardia noted. Suboptimal endocardial definition despite use of IV echo contrast. 1. The left ventricle is chamber size (by PSLAX dimension) is normal . Discrete basal septal hypertrophy is present. All of the LV segments are mildly hypokinetic . Global LV systolic function mildly reduced . LVEF by Gusman's method of disk assessment is mildly reduced (40-44%) . LV diastolic function is indeterminate. 2. In the limited views, the RV appears normal in size and function. 3. LA is incompletely visualized, size based on qualitative assessment. Based on LA diameter in PLAX view, the LA is dilated. 4. Mild tricuspid regurgitation. Peak systolic pressure may be underestimated; partial TR signal. Estimated peak systolic pressure is at least 35-40 mmHg. The estimated RA pressure by IVC dynamics 5-10mmHg . Previous Study No prior exam available for comparison. Signature Findings Left Ventricle Technically difficult study. Patient intubated. Tachycardia noted. Suboptimal endocardial definition despite use of IV echo contrast. The left ventricle is chamber size (by PSLAX dimension) is normal . Discrete basal septal hypertrophy is present. All of the LV segments are mildly hypokinetic . Global LV systolic function mildly reduced . LVEF by Gusman's method of disk assessment is mildly reduced (40-44%) . LV diastolic function is indeterminate. Left AtriumLA is incompletely visualized, size based on qualitative assessment. Based on LA diameter in PLAX view, the LA is dilated. Right VentricleIn the limited views, the RV appears normal in size and function. Right Atrium Not well seen. Aortic Valve Trileaflet aortic valve. Mild AoV cusp thickening. Mild AoV cusp calcification. No evidence of aortic stenosis. Trace aortic regurgitation. Mitral Valve Mild mitral annular calcification. Trace mitral regurgitation. Tricuspid ValveTV structure is normal. Mild tricuspid regurgitation. Peak systolic pressure may be underestimated; partial TR signal. Estimated peak systolic pressure is at least 35-40 mmHg. Pulmonic Valve Normal PV structure and function by limited views and Doppler. AortaAortic root size (SInus of Valsalva diameter) is normal . Proximal ascending aorta size is normal . PericardiumNo significant pericardial effusion is visualized. IVC/SVC/PA/PV/PleuralThe estimated RA pressure by IVC dynamics 5-10mmHg . Chambers/Structures Left Atrium LA Dimension: 4 cm Left Ventricle LVIDd: 4.5 cm LV Septum Diastolic: 1.5 cm LV PW Diastolic: 1.1 cm LVEDV Gusman's:101 ml LVESV Gusman's:57 ml LVEF Gusman's: 44 %LVEDVI: 46 ml/m^2 LVESVI: 26 ml/m^2 LVOT Diameter: 2 cm Right Ventricle RV Systolic Pressure: 37.25 mmHg Aorta Ao Root S of Constanza.: 3.3 cm Ascending Aorta: 3.5 cm Doppler/Quantitative Measurements Mitral Valve MV Peak E-Wave: 0.62 m/s MV Peak A-Wave: 0.59 m/s E /A Ratio: 1.05 P eak Gradient: 1.54 mmHg MV Richie. Peak: Tissue Doppler E' Septal Velocity: 0.06 m/s E/E': 10 E' Lateral Velocity: 0.06 m/s Aortic Valve AV Area (continuity): 2.8 cm^2 AV VTI: 15.8 cm AV DVI: 0.89 LVOT LVOT Diameter: 2 cmLVOT VTI: 14.1 cm LVOT Area: 3.14 cm^2 LVOT SV:44.27 ml LVOT CO: 5.05 l/minLVOT CI: 2.3 l/min/m^2 Tricuspid Valve Estimated RAP: 10 mmHg TR Velocity: 2.61 m/s TR Gradient: 27.25 mmHg Pulmonic Valve Estimated PASP: 37.25 mmHg Procedure Note Interface, External Ris In - 05/16/2018 9:08 AM CDT Transthoracic Echocardiography Report (TTE) Demographics Patient Name AURY RAMOS Date of Study 05/15/2018 DORETHA Gender Female Visit Number [id number] Race Unknown Room Number 7108 Number Date of 1960 Referring Physician DO uW Forman Age 57 year(s) Java Tech KE Montesinos Interpreting [facility] Needs to be Pre Physician Read Donna Conner MD Procedure Type of Study TTE procedure:2DECHO W DOPPLER(CW/PW/COLOR) (ARCHANA) Indications:Sepsis protocol. Clinical History DIABETES, HTN, STROKE, OBESITY HGB 9.5 HCT 31.1 % Contrast Medium: Definity. Amount - 2 ml Height: 68 inches Weight: 108.41 kg (239 lbs) BSA: 2.2 m^2 BMI: 36.34 kg/m^2 HR: 114 bpm BP: 110/68 mmHg Summary Technically difficult study. Patient intubated. Tachycardia noted. Suboptimal endocardial definition despite use of IV echo contrast. 1. The left ventricle is chamber size (by PSLAX dimension) is normal . Discrete basal septal hypertrophy is present. All of the LV segments are mildly hypokinetic . Global LV systolic function mildly reduced . LVEF by Gusman's method of disk assessment is mildly reduced (40-44%) . LV diastolic function is indeterminate. 2. In the limited views, the RV appears normal in size and function. 3. LA is incompletely visualized, size based on qualitative assessment. Based on LA diameter in PLAX view, the LA is dilated. 4. Mild tricuspid regurgitation. Peak systolic pressure may be underestimated; partial TR signal. Estimated peak systolic pressure is at least 35-40 mmHg. The estimated RA pressure by IVC dynamics 5-10mmHg . Previous Study No prior exam available for comparison. Signature Findings Left Ventricle Technically difficult study. Patient intubated. Tachycardia noted. Suboptimal endocardial definition despite use of IV echo contrast. The left ventricle is chamber size (by PSLAX dimension) is normal . Discrete basal septal hypertrophy is present. All of the LV segments are mildly hypokinetic . Global LV systolic function mildly reduced . LVEF by Gusman's method of disk assessment is mildly reduced (40-44%) . LV diastolic function is indeterminate. Left Atrium LA is incompletely visualized, size based on qualitative assessment. Based on LA diameter in PLAX view, the LA is dilated. Right Ventricle In the limited views, the RV appears normal in size and function. Right Atrium Not well seen. Aortic Valve Trileaflet aortic valve. Mild AoV cusp thickening. Mild AoV cusp calcification. No evidence of aortic stenosis. Trace aortic regurgitation. Mitral Valve Mild mitral annular calcification. Trace mitral regurgitation. Tricuspid Valve TV structure is normal. Mild tricuspid regurgitation. Peak systolic pressure may be underestimated; partial TR signal. Estimated peak systolic pressure is at least 35-40 mmHg. Pulmonic Valve Normal PV structure and function by limited views and Doppler. Aorta Aortic root size (SInus of Valsalva diameter) is normal . Proximal ascending aorta size is normal . Pericardium No significant pericardial effusion is visualized. IVC/SVC/PA/PV/Pleural The estimated RA pressure by IVC dynamics 5-10mmHg . Chambers/Structures Left Atrium LA Dimension: 4 cm Left Ventricle LVIDd: 4.5 cm LV Septum Diastolic: 1.5 cm LV PW Diastolic: 1.1 cm LVEDV Gusman's:101 ml LVESV Gusman's:57 ml LVEF Gusman's: 44 % LVEDVI: 46 ml/m^2 LVESVI: 26 ml/m^2 LVOT Diameter: 2 cm Right Ventricle RV Systolic Pressure: 37.25 mmHg Aorta Ao Root S of Constanza.: 3.3 cm Ascending Aorta: 3.5 cm Doppler/Quantitative Measurements Mitral Valve MV Peak E-Wave: 0.62 m/s MV Peak A-Wave: 0.59 m/s E/A Ratio: 1.05 Peak Gradient: 1.54 mmHg MV Richie. Peak: Tissue Doppler E' Septal Velocity: 0.06 m/s E/E': 10 E' Lateral Velocity: 0.06 m/s Aortic Valve AV Area (continuity): 2.8 cm^2 AV VTI: 15.8 cm AV DVI: 0.89 LVOT LVOT Diameter: 2 cm LVOT VTI: 14.1 cm LVOT Area: 3.14 cm^2 LVOT SV:44.27 ml LVOT CO: 5.05 l/min LVOT CI: 2.3 l/min/m^2 Tricuspid Valve Estimated RAP: 10 mmHg TR Velocity: 2.61 m/s TR Gradient: 27.25 mmHg Pulmonic Valve Estimated PASP: 37.25 mmHg Transfuse plasma (05/15/2018 8:02 AM)Only the most recent of9 resultswithin the time period is included.ECG 12 lead (05/15/2018 6:13 AM) Specimen Performing Laboratory LoopMe Narrative Ventricular Rate 120 BPM Atrial Rate 120 BPM QRS Duration 68 ms Q-T Interval 334 ms QTC Calculation(Bazett) 472 ms P [place] 55 degrees R [place] 48 degrees T [place] 67 degrees Sinus tachycardia Nonspecific T wave abnormality Prolonged QT Abnormal ECG When compared with ECG of 06-OCT-2016 07:08, Vent. rate has increased BY46 BPM Nonspecific T wave abnormality now evident in Lateral leads Confirmed by MD WICK YOCHAI ([id number]) on 05/15/2018 8:39:41 PM Procedure Note Interface, External Ris In - 05/15/2018 8:39 PM CDT Ventricular Rate 120 BPM Atrial Rate 120 BPM QRS Duration 68 ms Q-T Interval 334 ms QTC Calculation(Bazett) 472 ms P [place] 55 degrees R [place] 48 degrees T [place] 67 degrees Sinus tachycardia Nonspecific T wave abnormality Prolonged QT Abnormal ECG When compared with ECG of 06-OCT-2016 07:08, Vent. rate has increased BY 46 BPM Nonspecific T wave abnormality now evident in Lateral leads Confirmed by MD WICK YOCHAI ([id number]) on 05/15/2018 8:39:41 PM Body fluid culture + gram stain (05/15/2018 6:12 AM) Component Value Ref Range Result 2+ Klebsiella pneumoniae ssp ozaenae (A) Result 1+ Klebsiella pneumoniae ssp ozaenae (A)Comment: of a second type Gram Stain Result 3+ WBCs Gram Stain Result 1+ gram negative rods Gram Stain Result <1+ gram positive cocci in chains Specimen Performing Laboratory Body Fluid - Bile [facility] [address] [address] Organism Antibiotic Method Susceptibility Klebsiella pneumoniae ssp Amikacin <=2: Susceptible ozaenae Klebsiella pneumoniae ssp Ampicillin + Sulbactam 4: Susceptible ozaenae Klebsiella pneumoniae ssp Aztreonam <=1: Susceptible ozaenae Klebsiella pneumoniae ssp Cefepime <=1: Susceptible ozaenae Klebsiella pneumoniae ssp Cefoxitin <=4: Susceptible ozaenae Klebsiella pneumoniae ssp Ceftazidime <=1: Susceptible ozaenae Klebsiella pneumoniae ssp Ceftriaxone <=1: Susceptible ozaenae Klebsiella pneumoniae ssp Ertapenem <=0.5: Susceptible ozaenae Klebsiella pneumoniae ssp Gentamicin <=1: Susceptible ozaenae Klebsiella pneumoniae ssp Levofloxacin <=0.12: Susceptible ozaenae Klebsiella pneumoniae ssp Meropenem <=0.25: Susceptible ozaenae Klebsiella pneumoniae ssp Piperacillin + Tazobactam <=4: Susceptible ozaenae Klebsiella pneumoniae ssp Tetracycline <=1: Susceptible ozaenae Klebsiella pneumoniae ssp Tobramycin <=1: Susceptible ozaenae Klebsiella pneumoniae ssp Trimethoprim + Sulfamethoxazole <=20: Susceptible ozaenae Klebsiella pneumoniae ssp Amikacin <=2: Susceptible ozaenae Klebsiella pneumoniae ssp Ampicillin + Sulbactam 8: Susceptible ozaenae Klebsiella pneumoniae ssp Aztreonam <=1: Susceptible ozaenae Klebsiella pneumoniae ssp Cefepime <=1: Susceptible ozaenae Klebsiella pneumoniae ssp Cefoxitin <=4: Susceptible ozaenae Klebsiella pneumoniae ssp Ceftazidime <=1: Susceptible ozaenae Klebsiella pneumoniae ssp Ceftriaxone <=1: Susceptible ozaenae Klebsiella pneumoniae ssp Ertapenem <=0.5: Susceptible ozaenae Klebsiella pneumoniae ssp Gentamicin <=1: Susceptible ozaenae Klebsiella pneumoniae ssp Levofloxacin <=0.12: Susceptible ozaenae Klebsiella pneumoniae ssp Meropenem <=0.25: Susceptible ozaenae Klebsiella pneumoniae ssp Piperacillin + Tazobactam <=4: Susceptible ozaenae Klebsiella pneumoniae ssp Tetracycline 2: Susceptible ozaenae Klebsiella pneumoniae ssp Tobramycin <=1: Susceptible ozaenae Klebsiella pneumoniae ssp Trimethoprim + Sulfamethoxazole <=20: Susceptible ozaenae Vitamin B12 and Folate (05/15/2018 6:11 AM) Component Value Ref Range Vitamin B12 839 (H) 213 - 816 pg/mL Folate 6.8 (L) >=7.0 ng/mL Specimen Performing Laboratory Blood [address] [address] TSH/Free T4 If Indicated (05/15/2018 6:11 AM) Component Value Ref Range TSH 0.37 0.35 - 4.94 uIU/mL Specimen Performing Laboratory Blood [address] [address] US drainage with cath placement (05/15/2018 5:40 AM) Specimen Performing Laboratory GE RIS Narrative FINAL REPORT Cholecystostomy tube insertion. History: Acute cholecystitis Modality: Ultrasound Sedation: None Office Machine Servicer Apprentice:Aquiles Camacho MD. Inspector Bicycle:None. Approach: Transhepatic Estimated blood loss:< 5 cc. Specimen: 10 mm of grossly purulent fluid was collected and sent for culture. Technique: Informed written consent was obtained. Discussion of risks, benefits, and alternatives were made with the patient's . The patient's expressed understanding and agreed to proceed.A universal timeout was performed prior to starting the procedure. The procedure was performed at the patient's bedside in the ICU. Ultrasound demonstrated a distended gallbladder with a thickened wall. A transhepatic approach was chosen. The patient's skin was marked, prepped with chlorhexidine, and draped in usual sterile fashion. Local anesthesia was achieved with lidocaine 1%. A small skin incision was made. Under direct ultrasound guidance a 6 Croatian vascular pigtail catheter was advanced into the gallbladder lumen using a single stick trocar technique. Once the catheter tip was within the gallbladder lumen the catheter was fed off the stylette and coiled within the gallbladder. Ultrasound images document the location of the tube within the gallbladder. The pigtail was locked. The catheter secured the patient's skin with 2-0 silk. Approximately 10 mL of purulent material was then aspirated and sent for culture. The catheter was dressed with sterile gauze and occlusive Tegaderm dressing. Impression: Technically successful and uncomplicated ultrasound guided transhepatic cholecystostomy tube placement. Signed: Aquiles Camacho MD Report Verified Date/Time:05/17/2018 15:23:46 Reading Location: [facility] C013T Transitional Reading Room Procedure Note Interface, External Ris In - 05/17/2018 3:25 PM CDT FINAL REPORT Cholecystostomy tube insertion. History: Acute cholecystitis Modality: Ultrasound Sedation: None Office Machine Servicer Apprentice: Aquiles Camacho MD. Inspector Bicycle: None. Approach: Transhepatic Estimated blood loss: < 5 cc. Specimen: 10 mm of grossly purulent fluid was collected and sent for culture. Technique: Informed written consent was obtained. Discussion of risks, benefits, and alternatives were made with the patient's . The patient's expressed understanding and agreed to proceed. A universal timeout was performed prior to starting the procedure. The procedure was performed at the patient's bedside in the ICU. Ultrasound demonstrated a distended gallbladder with a thickened wall. A transhepatic approach was chosen. The patient's skin was marked, prepped with chlorhexidine, and draped in usual sterile fashion. Local anesthesia was achieved with lidocaine 1%. A small skin incision was made. Under direct ultrasound guidance a 6 Croatian vascular pigtail catheter was advanced into the gallbladder lumen using a single stick trocar technique. Once the catheter tip was within the gallbladder lumen the catheter was fed off the stylette and coiled within the gallbladder. Ultrasound images document the location of the tube within the gallbladder. The pigtail was locked. The catheter secured the patient's skin with 2-0 silk. Approximately 10 mL of purulent material was then aspirated and sent for culture. The catheter was dressed with sterile gauze and occlusive Tegaderm dressing. Impression: Technically successful and uncomplicated ultrasound guided transhepatic cholecystostomy tube placement. Signed: Aquiles Camacho MD Report Verified Date/Time: 05/17/2018 15:23:46 Reading Location: [address] Transitional Reading Room Sputum Culture + Gram Stain (05/15/2018 3:59 AM) Component Value Ref Range Result <1+ Normal respiratory ziyad present Gram Stain Result 1+ WBCs Gram Stain Result 0-5 epithelial cells Gram Stain Result No organisms seen Specimen Performing Laboratory Sputum [place] [address] US abdomen complete (05/15/2018 2:04 AM) Specimen Performing Laboratory D[employer]NA[employer] SL RIS Narrative FINAL REPORT Ultrasound of the Abdomen, complete Clinical History:Abnormal gallbladder on CT. Sepsis. Discussion: Sonographic evaluation of the abdomen was performed. There is no prior study for direct comparison. Correlation is made to CT abdomen and pelvis performed earlier on the same day. Liver: 21.8 cm in length at the right midclavicular line. Heterogeneous echotexture.No lesion is identified by ultrasound. Main portal vein diameter 1.1 cm. And demonstrates hepatopedal flow Biliary tree:Common duct 5 mm.No intrahepatic biliary ductal dilatation. Gallbladder: Physiologically distended gallbladder containing gallstones and sludge. Diffuse mural thickening measuring 7 mm. Trace pericholecystic fluid. Findings are compatible with acute cholecystitis. A sonographic Winston's sign was not assessed as the patient was sedated. Pancreas: Partially visualized, unremarkable. Ascites:None seen Spleen: Unable to adequately assess due to difficulty positioning the patient. Kidneys: Right kidney 11.2 x 5.1 x 6.4 cm with cortical thickness of 1.6 cm.Left kidney 10.7 x 5.6 x 6.1 cm with cortical thickness of 1.5 cm.Normal cortical echogenicity. No shadowing calculus, no hydronephrosis. IVC/Aorta:Segments partially seen.Unremarkable. Impression: Limited exam. Sonographic evidence of acute cholecystitis. No biliary ductal dilatation. Hepatomegaly. Signed: Rashi Hdz MD Report Verified Date/Time:05/15/2018 02:31:19 Reading Location: [facility] C013 Transitional Reading Room Procedure Note Interface, External Ris In - 05/15/2018 2:33 AM CDT FINAL REPORT Ultrasound of the Abdomen, complete Clinical History: Abnormal gallbladder on CT. Sepsis. Discussion: Sonographic evaluation of the abdomen was performed. There is no prior study for direct comparison. Correlation is made to CT abdomen and pelvis performed earlier on the same day. Liver: 21.8 cm in length at the right midclavicular line. Heterogeneous echotexture. No lesion is identified by ultrasound. Main portal vein diameter 1.1 cm. And demonstrates hepatopedal flow Biliary tree: Common duct 5 mm. No intrahepatic biliary ductal dilatation. Gallbladder: Physiologically distended gallbladder containing gallstones and sludge. Diffuse mural thickening measuring 7 mm. Trace pericholecystic fluid. Findings are compatible with acute cholecystitis. A sonographic Winston's sign was not assessed as the patient was sedated. Pancreas: Partially visualized, unremarkable. Ascites: None seen Spleen: Unable to adequately assess due to difficulty positioning the patient. Kidneys: Right kidney 11.2 x 5.1 x 6.4 cm with cortical thickness of 1.6 cm. Left kidney 10.7 x 5.6 x 6.1 cm with cortical thickness of 1.5 cm. Normal cortical echogenicity. No shadowing calculus, no hydronephrosis. IVC/Aorta: Segments partially seen. Unremarkable. Impression: Limited exam. Sonographic evidence of acute cholecystitis. No biliary ductal dilatation. Hepatomegaly. Signed: Rashi Hdz MD Report Verified Date/Time: 05/15/2018 02:31:19 Reading Location: [facility] B1 C013T Transitional Reading Room Lipase (05/15/2018 1:08 AM) Component Value Ref Range Lipase 27 8 - 78 U/L Specimen Performing Laboratory Blood [address] [address] Narrative Specimen slightly icteric Type and screen, automated (05/15/2018 1:07 AM) Component Value Ref Range ABO/RH AUTOMATED (BEAKER) O POSITIVE Ab Scrn NEGATIVE Specimen [place] [address] CT brain without IV contrast (05/15/2018 12:26 AM) Specimen Performing Laboratory GE RIS Narrative FINAL REPORT EXAM: CT head without contrast. CLINICAL HISTORY: confusion COMPARISON: Head CT 10/07/2016. TECHNIQUE: CT images of the head were obtained without intravenous contrast.This exam was performed according to our departmental dose optimization program which includes automated exposure control, adjustment of the mA and/or kV according to patient's size and/or use of iterative reconstructive technique. FINDINGS: There is generalized parenchymal volume loss. There are moderate white matter microvascular ischemic changes. There are chronic bilateral basal ganglia and pontine lacunar infarcts. There is no large demarcated acute territorial infarct. There is intracranial calcific atherosclerosis There is no acute intracranial hemorrhage, extra-axial fluid collection, mass effect, herniation or obstructive hydrocephalus. The basal cisterns are patent. The visualized orbits are normal. The visualized paranasal sinuses and tympanomastoid cavities are clear. The skull base and calvarium are intact. There are indwelling nasogastric and endotracheal tubes. IMPRESSION: Moderate matter microvascular ischemic changes and chronic infarcts as described. No acute intracranial hemorrhage or mass effect. Signed: Rashi Hdz MD Report Verified Date/Time:05/15/2018 00:41:07 Reading Location: [address] Transitional Reading Room Procedure Note Interface, External Ris In - 05/15/2018 12:43 AM CDT FINAL REPORT EXAM: CT head without contrast. CLINICAL HISTORY: confusion COMPARISON: Head CT 10/07/2016. TECHNIQUE: CT images of the head were obtained without intravenous contrast. This exam was performed according to our departmental dose optimization program which includes automated exposure control, adjustment of the mA and/or kV according to patient's size and/or use of iterative reconstructive technique. FINDINGS: There is generalized parenchymal volume loss. There are moderate white matter microvascular ischemic changes. There are chronic bilateral basal ganglia and pontine lacunar infarcts. There is no large demarcated acute territorial infarct. There is intracranial calcific atherosclerosis There is no acute intracranial hemorrhage, extra-axial fluid collection, mass effect, herniation or obstructive hydrocephalus. The basal cisterns are patent. The visualized orbits are normal. The visualized paranasal sinuses and tympanomastoid cavities are clear. The skull base and calvarium are intact. There are indwelling nasogastric and endotracheal tubes. IMPRESSION: Moderate matter microvascular ischemic changes and chronic infarcts as described. No acute intracranial hemorrhage or mass effect. Signed: Rashi Hdz MD Report Verified Date/Time: 05/15/2018 00:41:07 Reading Location: [address] Transitional Reading Room abdomen pelvis without contrast (05/15/2018 12:26 AM) Specimen Performing Laboratory [employer] Narrative FINAL REPORT EXAM: CT of the abdomen and pelvis, without contrast CLINICAL HISTORY: Fever, nausea and vomiting. TECHNIQUE: CT of the abdomen and pelvis was performed without the intravenous administration of contrast.This exam was performed according to our departmental dose optimization program which includes automated exposure control, adjustment of the mA and/or kV according to patient's size and/or use of iterative reconstructive technique. COMPARISON:None FINDINGS: Please note study is limited due to lack of intravenous contrast. LOWER CHEST: Mild bibasilar dependent atelectasis. Atherosclerotic calcifications of the aorta and coronary arteries. Central venous catheter tip at the SVC/RA junction. Small hiatal hernia. Nonspecific mild circumferential wall thickening of the distal esophagus. LIVER: Within normal limits. BILE DUCTS: Punctate nonobstructing stones in the common duct, without significant dilatation. GALL BLADDER: Cholelithiasis, diffuse mural thickening and pericholecystic haziness suspicious for acute cholecystitis. PANCREAS: Within normal limits. SPLEEN: Within normal limits. ADRENALS: Nonspecific left adrenal gland thickening. Unremarkable right adrenal gland. KIDNEYS/URETERS: Nonspecific bilateral perinephric stranding. Punctate nonobstructing right lower pole renal stone. No hydroureteronephrosis. URINARY BLADDER: Collapsed around a Marie catheter balloon. REPRODUCTIVE ORGANS: Status post hysterectomy. No adnexal masses. BOWEL/MESENTERY: No bowel obstruction or abnormal wall thickening. Normal appendix. PERITONEUM/RETROPERITONEUM: No free air, free fluid or fluid collection. VESSELS: Calcification atherosclerosis. No abdominal aortic aneurysm. LYMPH NODES: No abdominal or pelvic lymphadenopathy. SOFT TISSUES: Small fat-containing umbilical hernia. BONES: Expansile lucent lesion in the T12 vertebral body with sclerotic borders extending into the posterior 12th rib. Multilevel degenerative changes of the visualized spine. Mild degenerative changes of the bilateral hips. Sclerotic focus in the L3 vertebral body which may represent a bone island. IMPRESSION: Findings suspicious for acute cholecystitis. Choledocholithiasis. No significant biliary ductal dilatation. Ultrasound, MRCP and/or HIDA scan may be performed for further evaluation as clinically warranted. Diffuse bilateral perinephric stranding, nonspecific however correlation with urinalysis is advised to exclude infection. Punctate nonobstructing right renal stone. No hydronephrosis. Expansile lucent lesion in the T12 vertebral body extending into the right posterior 12th rib. Differential diagnosis includes an aneurysmal bone cyst, giant cell tumor or metastases. Further evaluation with a nonemergent MRI is recommended. Signed: Rashi Hdz MD Report Verified Date/Time:05/15/2018 00:55:09 Reading Location: [address] Reading Room Procedure Note Interface, External Ris In - 05/15/2018 12:57 AM [facility] FINAL REPORT EXAM: CT of the abdomen and pelvis, without contrast CLINICAL HISTORY: Fever, nausea and vomiting. TECHNIQUE: CT of the abdomen and pelvis was performed without the intravenous administration of contrast. This exam was performed according to our departmental dose optimization program which includes automated exposure control, adjustment of the mA and/or kV according to patient's size and/or use of iterative reconstructive technique. COMPARISON: None FINDINGS: Please note study is limited due to lack of intravenous contrast. LOWER CHEST: Mild bibasilar dependent atelectasis. Atherosclerotic calcifications of the aorta and coronary arteries. Central venous catheter tip at the SVC/RA junction. Small hiatal hernia. Nonspecific mild circumferential wall thickening of the distal esophagus. LIVER: Within normal limits. BILE DUCTS: Punctate nonobstructing stones in the common duct, without significant dilatation. GALL BLADDER: Cholelithiasis, diffuse mural thickening and pericholecystic haziness suspicious for acute cholecystitis. PANCREAS: Within normal limits. SPLEEN: Within normal limits. ADRENALS: Nonspecific left adrenal gland thickening. Unremarkable right adrenal gland. KIDNEYS/URETERS: Nonspecific bilateral perinephric stranding. Punctate nonobstructing right lower pole renal stone. No hydroureteronephrosis. URINARY BLADDER: Collapsed around a Marie catheter balloon. REPRODUCTIVE ORGANS: Status post hysterectomy. No adnexal masses. BOWEL/MESENTERY: No bowel obstruction or abnormal wall thickening. Normal appendix. PERITONEUM/RETROPERITONEUM: No free air, free fluid or fluid collection. VESSELS: Calcification atherosclerosis. No abdominal aortic aneurysm. LYMPH NODES: No abdominal or pelvic lymphadenopathy. SOFT TISSUES: Small fat-containing umbilical hernia. BONES: Expansile lucent lesion in the T12 vertebral body with sclerotic borders extending into the posterior 12th rib. Multilevel degenerative changes of the visualized spine. Mild degenerative changes of the bilateral hips. Sclerotic focus in the L3 vertebral body which may represent a bone island. IMPRESSION: Findings suspicious for acute cholecystitis. Choledocholithiasis. No significant biliary ductal dilatation. Ultrasound, MRCP and/or HIDA scan may be performed for further evaluation as clinically warranted. Diffuse bilateral perinephric stranding, nonspecific however correlation with urinalysis is advised to exclude infection. Punctate nonobstructing right renal stone. No hydronephrosis. Expansile lucent lesion in the T12 vertebral body extending into the right posterior 12th rib. Differential diagnosis includes an aneurysmal bone cyst, giant cell tumor or metastases. Further evaluation with a nonemergent MRI is recommended. Signed: Rashi Hdz MD Report Verified Date/Time: 05/15/2018 00:55:09 Reading Location: [address] Reading Room Urine culture (05/14/2018 9:56 PM) Component Value Ref Range Result No growth Specimen Performing Laboratory Urine - Urine, [place] [address] BCID (05/14/2018 9:44 PM) Component Value Ref Range Scan Result Specimen Performing Laboratory Blood [address] [address] Narrative Result comments: KLEBSIELLA PNEUMONIAE DETECTED KPC (a carbapenamase gene) not detected First line therapy: meropenem. De-escalate based on susceptibilities This test does not evaluate for ESBL Other organisms and resistance markers not contained in this PCR panel cannot be excluded and follow-up of traditional culture results is required. This sample was tested at the [facility] Clinical Microbiology Laboratory using the [employer] Blood Culture ID Panel. This test is FDA cleared for in vitro diagnostic use and has been verified and approved by the [facility] Clinical Microbiology laboratory for clinical use. Reference Range: Not Detected POC-Lactic Acid, Venous (05/14/2018 9:36 PM) Component Value Ref Range POC-Lactic Acid, Venous 9.1 (H)Comment: TESTED AT [address] 0.9 - 1.7 mmol/L [facility] [id number] Specimen Performing Laboratory Blood [address] [address] after 08/17/2017
--- OUTSIDE RECORDS SUMMARY | 2018-08-18 19:10 | XMS REPORT ---
:1960 [facility] Address [address] [place] [address] Care Team Providers Name Role Phone WILIAN, GURJIT Mendez Unavailable Unavailable Problems This patient has no known problems. Allergies, Adverse Reactions, Alerts This patient has no known allergies or adverse reactions. Medications This patient has no known medications. Results Test Description Test Time Test Comments Text Results Atomic Results Result Comments ANG, CHOLANGIOGRAM, 2018-05-26 Reason for FINAL REPORT PATIENT ID: [id number] 18:37:00 exam:->Clogged [id number] Cholecystostomy cholecystostomy, tube evaluation. please exchange History: 57-year-old female with shortness cholecystitis status post percutaneous cholecystotomy with decreased drain output Modality: Sonography and fluoroscopy. Sedation: None. Structural Engineer: Lavon Tillman MD. Paint Specialist: None. Approach: Via indwelling cholecystostomy. Estimated blood loss: < 5 cc. Specimen: None. Fluoroscopy Time: 0.5 min.Reference Air Kerma (Ka, r): 11.9 mGy. Technique/findings: [...] findings for acute cholecystitis). Signed: Lavon Tillman MDReport Verified Date/Time: 05/26/2018 18:37:36 Reading Location: [address] Body Reading Room -GLUCOSE METER 2018-05-26 18:30:00 Test Item Value Reference Range Comments POC-GLUCOSE METER (BEAKER) (test 153 mg/dL 70-110 TESTED AT [facility] [address] nstd=2325) [facility] [address] POCT-GLUCOSE [id number] 13:21:00 Test Item Value Reference Range Comments POC-GLUCOSE METER (BEAKER) 141 mg/dL 70-110 TESTED AT [facility] [address] [facility] (test vyxf=3970) [facility] [address] PROTHROMBIN [id number] 12:19:00 Test Item Value Reference Range Comments PROTIME (BEAKER) (test agyy=841) 13.2 seconds 11.7-14.7 INR (BEAKER) (test fjcb=189) 1.0 <=5.9 RECOMMENDED COUMADIN/WARFARIN INR THERAPY RANGESSTANDARD DOSE: 2.0 - 3.0 Includes: PROPHYLAXIS forvenous thrombosis, systemic embolization; TREATMENT for venous thrombosis and/or pulmonary embolus.HIGH RISK: Target INR is 2.5-3.5 for patients with mechanical heart valves.COMPREHENSIVE METABOLIC [id number] 09:24:00 Test Item Value Reference Range Comments TOTAL PROTEIN (BEAKER) 6.3 gm/dL 6.0-8.3 (test wssv=021) ALBUMIN (BEAKER) (test 3.2 g/dL 3.5-5.0 glkf=2787) ALKALINE PHOSPHATASE 406 U/L 40-150 (BEAKER) (test afzc=694) BILIRUBIN TOTAL (BEAKER) 0.4 mg/dL 0.2-1.2 (test oqkz=302) SODIUM (BEAKER) (test 140 meq/L 136-145 inxl=261) POTASSIUM (BEAKER) (test 3.6 meq/L 3.5-5.1 yxlh=013) CHLORIDE (BEAKER) (test 101 meq/L 98-107 hqex=677) CO2 (BEAKER) (test 25 meq/L 22-29 lfgy=932) BLOOD UREA NITROGEN 54 mg/dL 7-21 (BEAKER) (test hmyl=383) CREATININE (BEAKER) (test 6.06 mg/dL 0.57-1.25 fizs=616) GLUCOSE RANDOM (BEAKER) 154 mg/dL 70-105 (test ctce=115) CALCIUM (BEAKER) (test 8.5 mg/dL 8.4-10.2 ujhm=788) AST (SGOT) (BEAKER) (test 23 U/L 5-34 ubud=756) ALT (SGPT) (BEAKER) (test 24 U/L 6-55 dqou=072) EGFR (BEAKER) (test 7 mL/min/1.73 sq m ESTIMATED GFR IS NOT sqhr=6241) ACCURATE CREATININE CLEARANCE IN PREDICTING GLOMERULAR FILTRATION RATE. ESTIMATED GFR IS NOT APPLICABLE FOR DIALYSIS PATIENTS. BASIC METABOLIC [id number] 09:23:00 Test Item Value Reference Range Comments SODIUM (BEAKER) (test 140 meq/L 136-145 etzb=230) POTASSIUM (BEAKER) (test 3.6 meq/L 3.5-5.1 eqcu=909) CHLORIDE (BEAKER) (test 101 meq/L 98-107 pzzh=656) CO2 (BEAKER) (test 25 meq/L 22-29 kkxx=430) BLOOD UREA NITROGEN 54 mg/dL 7-21 (BEAKER) (test vmwb=726) CREATININE (BEAKER) (test 6.06 mg/dL 0.57-1.25 khop=908) GLUCOSE RANDOM (BEAKER) 154 mg/dL 70-105 (test wilg=301) CALCIUM (BEAKER) (test 8.5 mg/dL 8.4-10.2 njkn=142) EGFR (BEAKER) (test 7 mL/min/1.73 sq m ESTIMATED GFR IS NOT wvay=8545) ACCURATE CREATININE CLEARANCE IN PREDICTING GLOMERULAR FILTRATION RATE. ESTIMATED GFR IS NOT APPLICABLE FOR DIALYSIS PATIENTS. [id number] 09:12:00 Test Item Value Reference Range Comments PHOSPHORUS (BEAKER) (test rxtd=509) 6.0 mg/dL 2.3-4.7 [id number] 09:12:00 Test Item Value Reference Range Comments MAGNESIUM (BEAKER) (test lnfp=906) 2.1 mg/dL 1.6-2.6 HEPATIC FUNCTION [id number] 09:12:00 Test Item Value Reference Range Comments TOTAL PROTEIN (BEAKER) (test hokq=124) 6.3 gm/dL 6.0-8.3 ALBUMIN (BEAKER) (test fplc=9000) 3.2 g/dL 3.5-5.0 BILIRUBIN TOTAL (BEAKER) (test sbpz=365) 0.4 mg/dL 0.2-1.2 BILIRUBIN DIRECT (BEAKER) (test xzzp=242) 0.3 mg/dL 0.1-0.5 ALKALINE PHOSPHATASE (BEAKER) (test iidx=686) 406 U/L 40-150 AST (SGOT) (BEAKER) (test icro=788) 23 U/L 5-34 ALT (SGPT) (BEAKER) (test wera=129) 24 U/L 6-55 CALCIUM, [id number] 09:01:00 Test Item Value Reference Range Comments CALCIUM IONIZED (BEAKER) (test pnri=686) 1.02 mmol/L 1.12-1.27 PH, BLOOD (BEAKER) (test mpcn=6096) 7.33 CBC W/PLT COUNT & AUTO [id number] 08:43:00 Test Item Value Reference Range Comments WHITE BLOOD CELL COUNT (BEAKER) (test msdg=514) 5.1 K/ L 3.5-10.5 RED BLOOD CELL COUNT (BEAKER) (test pjbk=147) 3.62 M/ L 3.93-5.22 HEMOGLOBIN (BEAKER) (test zqoi=380) 9.0 GM/DL 11.2-15.7 HEMATOCRIT (BEAKER) (test qgmt=125) 30.2 % 34.1-44.9 MEAN CORPUSCULAR VOLUME (BEAKER) (test szmu=682) 83.4 fL 79.4-94.8 MEAN CORPUSCULAR HEMOGLOBIN (BEAKER) (test 24.9 pg 25.6-32.2 syve=472) MEAN CORPUSCULAR HEMOGLOBIN CONC (BEAKER) (test 29.8 GM/DL 32.2-35.5 koxy=495) RED CELL DISTRIBUTION WIDTH (BEAKER) (test 15.3 % 11.7-14.4 cvys=056) PLATELET COUNT (BEAKER) (test egkl=700) 225 K/CU MM 150-450 MEAN PLATELET VOLUME (BEAKER) (test nczr=077) 10.2 fL 9.4-12.3 NUCLEATED RED BLOOD CELLS (BEAKER) (test 0 /100 WBC 0-0 zrma=417) NEUTROPHILS RELATIVE PERCENT (BEAKER) (test 72 % yetj=398) LYMPHOCYTES RELATIVE PERCENT (BEAKER) (test 17 % erri=992) MONOCYTES RELATIVE PERCENT (BEAKER) (test 8 % lwsc=626) EOSINOPHILS RELATIVE PERCENT (BEAKER) (test 2 % wcfu=042) BASOPHILS RELATIVE PERCENT (BEAKER) (test 0 % ywnq=199) NEUTROPHILS ABSOLUTE COUNT (BEAKER) (test 3.64 K/ L 1.56-6.13 qvzh=659) LYMPHOCYTES ABSOLUTE COUNT (BEAKER) (test 0.87 K/ L 1.18-3.74 asts=567) MONOCYTES ABSOLUTE COUNT (BEAKER) (test 0.42 K/ L 0.24-0.36 rzfl=108) EOSINOPHILS ABSOLUTE COUNT (BEAKER) (test 0.09 K/ L 0.04-0.36 vdst=994) BASOPHILS ABSOLUTE COUNT (BEAKER) (test 0.01 K/ L 0.01-0.08 swyo=415) IMMATURE GRANULOCYTES-RELATIVE PERCENT (BEAKER) 1 % 0-1 (test ovsl=8165) POCT-GLUCOSE [id number] 06:03:00 Test Item Value Reference Range Comments POC-GLUCOSE METER (BEAKER) 158 mg/dL 70-110 TESTED AT [facility] [address] [facility] (test bolw=8931) [facility] [address] U/S, ABDOMINAL, [id number] 04:03:00Abdomen limited area? Add comment if clarification is needed.->Gall BladderReason for exam:->cholecystostomy tube placementFINAL REPORT Exam: Limited abdominal ultrasound. Clinical History: cholecystostomy tube placement . Findings: Sonographic evaluation of the right upper quadrant of the abdomen was performed. Comparison is made to abdominal ultrasound 05/15/2018. Liver: 19.1 cm in length at theright midclavicular line. Increased echogenicity. No lesion is [...] evidence of acute cholecystitis. No biliary ductal dilatation.Hepatomegaly. Echogenic liver which maybe seen with parenchymal disease such as fatty infiltration. Signed: Rashi Hdz MDReport VerifiedDate/Time: 05/26/2018 04: 03:41 Reading Location: [facility] C013Y CT Body Reading Room POCT-GLUCOSE [id number] 23:21:00 Test Item Value Reference Range Comments POC-GLUCOSE METER (BEAKER) 215 mg/dL 70-110 TESTED AT [address] (test pexh=2699) [place] [address] [id number] 18:32:00 Test Item Value Reference Range Comments POTASSIUM (BEAKER) (test wfbu=888) 3.8 meq/L 3.5-5.1 [id number] 18:32:00 Test Item Value Reference Range Comments MAGNESIUM (BEAKER) (test aunx=680) 2.1 mg/dL 1.6-2.6 POCT-GLUCOSE [id number] 17:46:00 Test Item Value Reference Range Comments POC-GLUCOSE METER (BEAKER) 175 mg/dL 70-110 TESTED AT [address] (test oszn=6302) [place] [id number] POCT-GLUCOSE [id number] 11:54:00 Test Item Value Reference Range Comments POC-GLUCOSE METER (BEAKER) 225 mg/dL 70-110 TESTED AT [address] (test jvxe=7005) [place] [id number] POCT-GLUCOSE [id number] 05:02:00 Test Item Value Reference Range Comments POC-GLUCOSE METER (BEAKER) 216 mg/dL 70-110 TESTED AT [address] (test vjfo=9057) [place] [id number] BASIC METABOLIC [id number] 05:02:00 Test Item Value Reference Range Comments SODIUM (BEAKER) (test 138 meq/L 136-145 zxem=678) POTASSIUM (BEAKER) (test 3.4 meq/L 3.5-5.1 bpkd=737) CHLORIDE (BEAKER) (test 101 meq/L 98-107 vvhm=763) CO2 (BEAKER) (test 25 meq/L 22-29 kdmf=912) BLOOD UREA NITROGEN 29 mg/dL 7-21 (BEAKER) (test amxz=633) CREATININE (BEAKER) (test 4.01 mg/dL 0.57-1.25 jkge=347) GLUCOSE RANDOM (BEAKER) 202 mg/dL 70-105 (test civx=128) CALCIUM (BEAKER) (test 8.5 mg/dL 8.4-10.2 qkop=145) EGFR (BEAKER) (test 11 mL/min/1.73 sq m ESTIMATED GFR IS NOT rgox=8970) ACCURATE CREATININE CLEARANCE IN PREDICTING GLOMERULAR FILTRATION RATE. ESTIMATED GFR IS NOT APPLICABLE FOR DIALYSIS PATIENTS. HEPATIC FUNCTION [id number] 04:59:00 Test Item Value Reference Range Comments TOTAL PROTEIN (BEAKER) (test dvaw=991) 6.3 gm/dL 6.0-8.3 ALBUMIN (BEAKER) (test wuxm=2945) 3.2 g/dL 3.5-5.0 BILIRUBIN TOTAL (BEAKER) (test djfb=136) 0.5 mg/dL 0.2-1.2 BILIRUBIN DIRECT (BEAKER) (test aqsn=734) 0.3 mg/dL 0.1-0.5 ALKALINE PHOSPHATASE (BEAKER) (test vfpw=267) 555 U/L 40-150 AST (SGOT) (BEAKER) (test qtut=598) 78 U/L 5-34 ALT (SGPT) (BEAKER) (test flph=504) 47 U/L 6-55 CBC W/PLT COUNT & AUTO [id number] 04:42:00 Test Item Value Reference Range Comments WHITE BLOOD CELL COUNT (BEAKER) (test indk=717) 5.5 K/ L 3.5-10.5 RED BLOOD CELL COUNT (BEAKER) (test budm=805) 3.73 M/ L 3.93-5.22 HEMOGLOBIN (BEAKER) (test fsla=782) 9.2 GM/DL 11.2-15.7 HEMATOCRIT (BEAKER) (test uoeu=100) 30.3 % 34.1-44.9 MEAN CORPUSCULAR VOLUME (BEAKER) (test plgh=628) 81.2 fL 79.4-94.8 MEAN CORPUSCULAR HEMOGLOBIN (BEAKER) (test 24.7 pg 25.6-32.2 ozvv=086) MEAN CORPUSCULAR HEMOGLOBIN CONC (BEAKER) (test 30.4 GM/DL 32.2-35.5 sdkc=492) RED CELL DISTRIBUTION WIDTH (BEAKER) (test 15.2 % 11.7-14.4 uyfu=151) PLATELET COUNT (BEAKER) (test ctnu=293) 230 K/CU MM 150-450 MEAN PLATELET VOLUME (BEAKER) (test waih=084) 10.5 fL 9.4-12.3 NUCLEATED RED BLOOD CELLS (BEAKER) (test 0 /100 WBC 0-0 csuc=801) NEUTROPHILS RELATIVE PERCENT (BEAKER) (test 78 % ynld=127) LYMPHOCYTES RELATIVE PERCENT (BEAKER) (test 13 % yjen=143) MONOCYTES RELATIVE PERCENT (BEAKER) (test 7 % eqgx=582) EOSINOPHILS RELATIVE PERCENT (BEAKER) (test 2 % zcgi=232) BASOPHILS RELATIVE PERCENT (BEAKER) (test 0 % ntql=430) NEUTROPHILS ABSOLUTE COUNT (BEAKER) (test 4.26 K/ L 1.56-6.13 omwr=037) LYMPHOCYTES ABSOLUTE COUNT (BEAKER) (test 0.69 K/ L 1.18-3.74 urks=100) MONOCYTES ABSOLUTE COUNT (BEAKER) (test 0.36 K/ L 0.24-0.36 hhxk=705) EOSINOPHILS ABSOLUTE COUNT (BEAKER) (test 0.08 K/ L 0.04-0.36 quqy=422) BASOPHILS ABSOLUTE COUNT (BEAKER) (test 0.02 K/ L 0.01-0.08 omxx=894) IMMATURE GRANULOCYTES-RELATIVE PERCENT (BEAKER) 1 % 0-1 (test ykyr=8482) POCT-GLUCOSE [id number] 23:14:00 Test Item Value Reference Range Comments POC-GLUCOSE METER (BEAKER) 166 mg/dL 70-110 TESTED AT [facility] [address] [facility] (test pqlj=1484) [facility] [address] POCT-GLUCOSE [id number] 18:44:00 Test Item Value Reference Range Comments POC-GLUCOSE METER (BEAKER) 101 mg/dL 70-110 TESTED AT [facility] [address] [facility] (test hccc=5441) [facility] [address] [place], ASPIRATION/[id number] 12:51:00Reason for exam:->cholecystostomy tube-low outputFINAL REPORT Indication: cholecystostomy tube-low output TECHNIQUE: Fluoroscopy-guided injection of the cholecystostomy tube was attempted. After obtaining a microbiology technologist view, contrastinjection of the cholecystostomy tube was unsuccessfully attempted. COMPARISON: None Total fluoroscopy time: 0.3 minutes Total number of fluoroscopy images: Four Discussion: The microbiology technologist view demonstrates a cholecystostomy catheter in the right upper abdomen laterally. Despite multiple attempts to inject contrast into the cholecystostomy tube, there is significant resistance to injection and no contrast was seen in the tube or gallbladder lumen likely secondary to clogged cholecystostomy tube. Signed:Richard Martin Verified Date/Time: 2017 12:51:56 Reading Location: [address] Consult Reading Room [place], ESOPH, SWALLOW FUNCTION, WITH CINE OR [id number] 12:11:00Reason for exam:-> dysphagiaFINAL REPORT Modified barium swallow with speech pathology History: dysphagiaTechnique: Modified barium swallow was performed in conjunction with speech pathology. Examination utilized various textures of barium. Fluoroscopic observation was performed during swallowing. Total fluoroscopy time: 1.2 minutes Total number of films: 1 IMPRESSION: There is silent laryngeal aspiration with thin, nectar thick and honey thick liquid barium. Please refer to the speech pathology report for further details. Signed : Richard Martin Verified Date/Time: 05/24/2018 12:11:37 Reading Location : [address] Consult Reading Room HEMOGLOBIN [id number] 12:09:00 Test Item Value Reference Range Comments HEMOGLOBIN A1C (BEAKER) (test sjgv=968) 6.8 % 4.3-6.1 CALCIUM, [id number] 07:51:00 Test Item Value Reference Range Comments CALCIUM IONIZED (BEAKER) (test wret=806) 0.97 mmol/L 1.12-1.27 PH, BLOOD (BEAKER) (test fmgs=3690) 7.33 BASIC METABOLIC [id number] 07:47:00 Test Item Value Reference Range Comments SODIUM (BEAKER) (test 141 meq/L 136-145 ejva=514) POTASSIUM (BEAKER) (test 4.1 meq/L 3.5-5.1 ksov=234) CHLORIDE (BEAKER) (test 102 meq/L 98-107 xpze=186) CO2 (BEAKER) (test 23 meq/L 22-29 zhhx=740) BLOOD UREA NITROGEN 61 mg/dL 7-21 (BEAKER) (test ffnk=314) CREATININE (BEAKER) (test 6.79 mg/dL 0.57-1.25 urse=130) GLUCOSE RANDOM (BEAKER) 151 mg/dL 70-105 (test llkk=897) CALCIUM (BEAKER) (test 8.3 mg/dL 8.4-10.2 gmxo=789) EGFR (BEAKER) (test 6 mL/min/1.73 sq m ESTIMATED GFR IS NOT cdkg=5503) ACCURATE CREATININE CLEARANCE IN PREDICTING GLOMERULAR FILTRATION RATE. ESTIMATED GFR IS NOT APPLICABLE FOR DIALYSIS PATIENTS. [id number] 07:46:00 Test Item Value Reference Range Comments PHOSPHORUS (BEAKER) (test cthz=876) 8.1 mg/dL 2.3-4.7 [id number] 07:46:00 Test Item Value Reference Range Comments MAGNESIUM (BEAKER) (test uffh=790) 2.3 mg/dL 1.6-2.6 HEPATIC FUNCTION [id number] 07:46:00 Test Item Value Reference Range Comments TOTAL PROTEIN (BEAKER) (test ones=438) 6.4 gm/dL 6.0-8.3 ALBUMIN (BEAKER) (test jeea=8905) 3.2 g/dL 3.5-5.0 BILIRUBIN TOTAL (BEAKER) (test wxol=174) 0.9 mg/dL 0.2-1.2 BILIRUBIN DIRECT (BEAKER) (test lmka=788) 0.7 mg/dL 0.1-0.5 ALKALINE PHOSPHATASE (BEAKER) (test elbh=082) 608 U/L 40-150 AST (SGOT) (BEAKER) (test yzpl=259) 200 U/L 5-34 ALT (SGPT) (BEAKER) (test wxir=313) 63 U/L 6-55 CBC W/PLT COUNT & AUTO [id number] 07:36:00 Test Item Value Reference Range Comments WHITE BLOOD CELL COUNT (BEAKER) (test wdvh=282) 4.9 K/ L 3.5-10.5 RED BLOOD CELL COUNT (BEAKER) (test rtbw=485) 3.73 M/ L 3.93-5.22 HEMOGLOBIN (BEAKER) (test ncas=251) 9.2 GM/DL 11.2-15.7 HEMATOCRIT (BEAKER) (test rexp=507) 30.5 % 34.1-44.9 MEAN CORPUSCULAR VOLUME (BEAKER) (test nlix=338) 81.8 fL 79.4-94.8 MEAN CORPUSCULAR HEMOGLOBIN (BEAKER) (test 24.7 pg 25.6-32.2 lgfk=528) MEAN CORPUSCULAR HEMOGLOBIN CONC (BEAKER) (test 30.2 GM/DL 32.2-35.5 gxhl=666) RED CELL DISTRIBUTION WIDTH (BEAKER) (test 15.1 % 11.7-14.4 kqzi=968) PLATELET COUNT (BEAKER) (test aaqi=265) 236 K/CU MM 150-450 MEAN PLATELET VOLUME (BEAKER) (test cowj=854) 10.0 fL 9.4-12.3 NUCLEATED RED BLOOD CELLS (BEAKER) (test 0 /100 WBC 0-0 fcaa=557) NEUTROPHILS RELATIVE PERCENT (BEAKER) (test 80 % pura=456) LYMPHOCYTES RELATIVE PERCENT (BEAKER) (test 10 % inir=327) MONOCYTES RELATIVE PERCENT (BEAKER) (test 7 % pjho=373) EOSINOPHILS RELATIVE PERCENT (BEAKER) (test 2 % pkft=796) BASOPHILS RELATIVE PERCENT (BEAKER) (test 0 % anui=892) NEUTROPHILS ABSOLUTE COUNT (BEAKER) (test 3.90 K/ L 1.56-6.13 oinq=182) LYMPHOCYTES ABSOLUTE COUNT (BEAKER) (test 0.51 K/ L 1.18-3.74 ktsl=318) MONOCYTES ABSOLUTE COUNT (BEAKER) (test 0.33 K/ L 0.24-0.36 kqgq=499) EOSINOPHILS ABSOLUTE COUNT (BEAKER) (test 0.08 K/ L 0.04-0.36 ugsp=909) BASOPHILS ABSOLUTE COUNT (BEAKER) (test 0.01 K/ L 0.01-0.08 klmf=882) IMMATURE GRANULOCYTES-RELATIVE PERCENT (BEAKER) 1 % 0-1 (test dzje=9187) CBC W/PLT COUNT & AUTO [id number] 07:36:00 Test Item Value Reference Range Comments WHITE BLOOD CELL COUNT (BEAKER) (test vdea=917) 4.9 K/ L 3.5-10.5 RED BLOOD CELL COUNT (BEAKER) (test twxc=917) 3.76 M/ L 3.93-5.22 HEMOGLOBIN (BEAKER) (test sqmn=918) 9.3 GM/DL 11.2-15.7 HEMATOCRIT (BEAKER) (test gxdp=172) 30.8 % 34.1-44.9 MEAN CORPUSCULAR VOLUME (BEAKER) (test xmzy=996) 81.9 fL 79.4-94.8 MEAN CORPUSCULAR HEMOGLOBIN (BEAKER) (test 24.7 pg 25.6-32.2 qxob=731) MEAN CORPUSCULAR HEMOGLOBIN CONC (BEAKER) (test 30.2 GM/DL 32.2-35.5 twdy=557) RED CELL DISTRIBUTION WIDTH (BEAKER) (test 15.0 % 11.7-14.4 mjuu=141) PLATELET COUNT (BEAKER) (test eawv=342) 228 K/CU MM 150-450 MEAN PLATELET VOLUME (BEAKER) (test uijs=608) 9.7 fL 9.4-12.3 NUCLEATED RED BLOOD CELLS (BEAKER) (test 0 /100 WBC 0-0 exbw=357) NEUTROPHILS RELATIVE PERCENT (BEAKER) (test 80 % vguo=975) LYMPHOCYTES RELATIVE PERCENT (BEAKER) (test 10 % qtsa=930) MONOCYTES RELATIVE PERCENT (BEAKER) (test 7 % pzog=227) EOSINOPHILS RELATIVE PERCENT (BEAKER) (test 2 % vjiw=310) BASOPHILS RELATIVE PERCENT (BEAKER) (test 0 % sxrb=633) NEUTROPHILS ABSOLUTE COUNT (BEAKER) (test 3.93 K/ L 1.56-6.13 ygnl=585) LYMPHOCYTES ABSOLUTE COUNT (BEAKER) (test 0.48 K/ L 1.18-3.74 pvyy=821) MONOCYTES ABSOLUTE COUNT (BEAKER) (test 0.33 K/ L 0.24-0.36 ijol=234) EOSINOPHILS ABSOLUTE COUNT (BEAKER) (test 0.08 K/ L 0.04-0.36 zkvm=721) BASOPHILS ABSOLUTE COUNT (BEAKER) (test 0.01 K/ L 0.01-0.08 lwtz=193) IMMATURE GRANULOCYTES-RELATIVE PERCENT (BEAKER) 2 % 0-1 (test jaxr=7003) POCT-GLUCOSE [id number] 05:52:00 Test Item Value Reference Range Comments POC-GLUCOSE METER (BEAKER) 151 mg/dL 70-110 TESTED AT [address] (test wrxd=9138) [facility] [address] POCT-GLUCOSE [id number] 23:51:00 Test Item Value Reference Range Comments POC-GLUCOSE METER (BEAKER) 146 mg/dL 70-110 TESTED AT [address] (test uowz=1412) [facility] [address] ANG, TUNNELED CATHETER [id number] 17:41:00SD Miryam for exam:-& gt;need hdIs the patient ?->NoWhen was patient's last menstrual cycle ?->05/21/18INAL REPORT Tunneled dialysis catheter insertion History: Renal failure. Modality: Fluoroscopy. SEDATION: Moderate sedation was administered 1 mg of Versed and 50 mcg of fentanyl IV was used for moderate sedation monitored under my direction. Total intraservice time of sedation was 30 minutes. The patient's vital signs were monitored throughout the procedure and recorded in the patient'smedical record by the nurse sedation. Structural Engineer: Aquiles Franco MD. Paint Specialist: None. Approach: Right internal jugular vein Estimated [...] skin and catheter prep, a large sterile sheetto cover the areas of the patient that were not prepped, and hand hygiene, mask, head covering, and sterile gown for performing radiologist and scrub technologist. An 0.035 wire was advanced into the existing catheter. A subcutaneous tunnel was created in the right anterior chest wall by blunt dissection. A 19 cm 15.5 Scottish tunnel dialysis catheter was brought through the tunnel. The existing nontunneled catheter was removed over the wire in a sterile fashion. The vessel tract was serially dilatedover a J-wire. A peel- away sheath was placed in the right IJ [...] ready for immediate use. Signed: Aquiles Franco MDReport Verified Date/Time: 05/23/2018 17:41:03 Reading Location : [facility] [address] [facility] Body Reading Room POCT-GLUCOSE [id number] 17:03:00 Test Item Value Reference Range Comments POC-GLUCOSE METER (BEAKER) 93 mg/dL 70-110 TESTED AT [address] (test wbnx=9884) [facility] [address] POCT-GLUCOSE [id number] 11:13:00 Test Item Value Reference Range Comments POC-GLUCOSE METER (BEAKER) 95 mg/dL 70-110 TESTED AT [address] (test dfvv=8246) [facility] [address] POCT-GLUCOSE [id number] 05:36:00 Test Item Value Reference Range Comments POC-GLUCOSE METER (BEAKER) 99 mg/dL 70-110 TESTED AT [facility] [address] (test pqxt=7453) [facility] [address] COMPREHENSIVE METABOLIC [id number] 05:03:00 Test Item Value Reference Range Comments TOTAL PROTEIN (BEAKER) 6.4 gm/dL 6.0-8.3 (test bwfk=223) ALBUMIN (BEAKER) (test 3.1 g/dL 3.5-5.0 ecad=5467) ALKALINE PHOSPHATASE 119 U/L 40-150 (BEAKER) (test oocm=428) BILIRUBIN TOTAL (BEAKER) 0.6 mg/dL 0.2-1.2 (test cyug=800) SODIUM (BEAKER) (test 142 meq/L 136-145 lrjl=367) POTASSIUM (BEAKER) (test 3.6 meq/L 3.5-5.1 hfhm=199) CHLORIDE (BEAKER) (test 103 meq/L 98-107 zpdj=431) CO2 (BEAKER) (test 25 meq/L 22-29 okdt=369) BLOOD UREA NITROGEN 33 mg/dL 7-21 (BEAKER) (test smye=748) CREATININE (BEAKER) (test 4.30 mg/dL 0.57-1.25 vpvx=891) GLUCOSE RANDOM (BEAKER) 103 mg/dL 70-105 (test itet=603) CALCIUM (BEAKER) (test 8.3 mg/dL 8.4-10.2 laoz=088) AST (SGOT) (BEAKER) (test 15 U/L 5-34 pagu=046) ALT (SGPT) (BEAKER) (test 15 U/L 6-55 wixm=353) EGFR (BEAKER) (test 11 mL/min/1.73 sq m ESTIMATED GFR IS NOT jmlv=4916) ACCURATE CREATININE CLEARANCE IN PREDICTING GLOMERULAR FILTRATION RATE. ESTIMATED GFR IS NOT APPLICABLE FOR DIALYSIS PATIENTS. BASIC METABOLIC [id number] 05:03:00 Test Item Value Reference Range Comments SODIUM (BEAKER) (test 142 meq/L 136-145 klwf=839) POTASSIUM (BEAKER) (test 3.6 meq/L 3.5-5.1 enyp=443) CHLORIDE (BEAKER) (test 103 meq/L 98-107 bizt=955) CO2 (BEAKER) (test 25 meq/L 22-29 qbtz=913) BLOOD UREA NITROGEN 33 mg/dL 7-21 (BEAKER) (test nriq=539) CREATININE (BEAKER) (test 4.30 mg/dL 0.57-1.25 ekvi=612) GLUCOSE RANDOM (BEAKER) 103 mg/dL 70-105 (test qcse=461) CALCIUM (BEAKER) (test 8.3 mg/dL 8.4-10.2 tlou=950) EGFR (BEAKER) (test 11 mL/min/1.73 sq m ESTIMATED GFR IS NOT ynwg=7824) ACCURATE CREATININE CLEARANCE IN PREDICTING GLOMERULAR FILTRATION RATE. ESTIMATED GFR IS NOT APPLICABLE FOR DIALYSIS PATIENTS. [id number] 05:02:00 Test Item Value Reference Range Comments PHOSPHORUS (BEAKER) (test ypgy=840) 4.8 mg/dL 2.3-4.7 [id number] 05:02:00 Test Item Value Reference Range Comments MAGNESIUM (BEAKER) (test wkdu=198) 2.1 mg/dL 1.6-2.6 HEPATIC FUNCTION [id number] 05:02:00 Test Item Value Reference Range Comments TOTAL PROTEIN (BEAKER) (test ungx=429) 6.4 gm/dL 6.0-8.3 ALBUMIN (BEAKER) (test zpyr=2074) 3.1 g/dL 3.5-5.0 BILIRUBIN TOTAL (BEAKER) (test vexu=700) 0.6 mg/dL 0.2-1.2 BILIRUBIN DIRECT (BEAKER) (test smau=648) 0.4 mg/dL 0.1-0.5 ALKALINE PHOSPHATASE (BEAKER) (test savz=102) 119 U/L 40-150 AST (SGOT) (BEAKER) (test fthb=634) 15 U/L 5-34 ALT (SGPT) (BEAKER) (test xbww=644) 15 U/L 6-55 CALCIUM, [id number] 04:47:00 Test Item Value Reference Range Comments CALCIUM IONIZED (BEAKER) (test ptku=932) 0.97 mmol/L 1.12-1.27 PH, BLOOD (BEAKER) (test ogzz=1339) 7.37 PROTHROMBIN [id number] 04:40:00 Test Item Value Reference Range Comments PROTIME (BEAKER) (test ykab=871) 15.3 seconds 11.7-14.7 INR (BEAKER) (test heva=985) 1.2 <=5.9 RECOMMENDED COUMADIN/WARFARIN INR THERAPY RANGESSTANDARD DOSE: 2.0 - 3.0 Includes: PROPHYLAXIS forvenous thrombosis, systemic embolization; TREATMENT for venous thrombosis and/or pulmonary embolus.HIGH RISK: Target INR is 2.5-3.5 for patients with mechanical heart valves.CBC W/PLT COUNT & AUTO [id number] 04:27:00 Test Item Value Reference Range Comments WHITE BLOOD CELL COUNT (BEAKER) (test xmen=687) 6.1 K/ L 3.5-10.5 RED BLOOD CELL COUNT (BEAKER) (test etdb=205) 3.60 M/ L 3.93-5.22 HEMOGLOBIN (BEAKER) (test pwdv=323) 9.1 GM/DL 11.2-15.7 HEMATOCRIT (BEAKER) (test zlop=565) 29.5 % 34.1-44.9 MEAN CORPUSCULAR VOLUME (BEAKER) (test cogm=546) 81.9 fL 79.4-94.8 MEAN CORPUSCULAR HEMOGLOBIN (BEAKER) (test 25.3 pg 25.6-32.2 vcla=774) MEAN CORPUSCULAR HEMOGLOBIN CONC (BEAKER) (test 30.8 GM/DL 32.2-35.5 vbxa=046) RED CELL DISTRIBUTION WIDTH (BEAKER) (test 15.1 % 11.7-14.4 sonh=481) PLATELET COUNT (BEAKER) (test jcfz=522) 222 K/CU MM 150-450 MEAN PLATELET VOLUME (BEAKER) (test gefk=910) 10.4 fL 9.4-12.3 NUCLEATED RED BLOOD CELLS (BEAKER) (test 0 /100 WBC 0-0 froh=479) NEUTROPHILS RELATIVE PERCENT (BEAKER) (test 78 % ixxp=661) LYMPHOCYTES RELATIVE PERCENT (BEAKER) (test 10 % muqc=487) MONOCYTES RELATIVE PERCENT (BEAKER) (test 8 % qfsa=172) EOSINOPHILS RELATIVE PERCENT (BEAKER) (test 3 % ajvq=938) BASOPHILS RELATIVE PERCENT (BEAKER) (test 0 % faom=293) NEUTROPHILS ABSOLUTE COUNT (BEAKER) (test 4.75 K/ L 1.56-6.13 wcsx=022) LYMPHOCYTES ABSOLUTE COUNT (BEAKER) (test 0.63 K/ L 1.18-3.74 slap=582) MONOCYTES ABSOLUTE COUNT (BEAKER) (test 0.46 K/ L 0.24-0.36 hghs=368) EOSINOPHILS ABSOLUTE COUNT (BEAKER) (test 0.16 K/ L 0.04-0.36 zdsl=196) BASOPHILS ABSOLUTE COUNT (BEAKER) (test 0.01 K/ L 0.01-0.08 aisv=391) IMMATURE GRANULOCYTES-RELATIVE PERCENT (BEAKER) 2 % 0-1 (test wusi=5855) POCT-GLUCOSE [id number] 23:58:00 Test Item Value Reference Range Comments POC-GLUCOSE METER (BEAKER) 99 mg/dL 70-110 TESTED AT [address] (test utsj=3434) [place] [id number] POCT-GLUCOSE [id number] 20:57:00 Test Item Value Reference Range Comments POC-GLUCOSE METER (BEAKER) 91 mg/dL 70-110 TESTED AT [address] (test emci=6047) [place] [id number] POCT-GLUCOSE [id number] 11:41:00 Test Item Value Reference Range Comments POC-GLUCOSE METER (BEAKER) 130 mg/dL 70-110 TESTED AT [address] (test rtxr=9251) [facility] [address] COMPREHENSIVE METABOLIC [id number] 07:20:00 Test Item Value Reference Range Comments TOTAL PROTEIN (BEAKER) 5.9 gm/dL 6.0-8.3 (test xwhb=690) ALBUMIN (BEAKER) (test 2.9 g/dL 3.5-5.0 nczp=9222) ALKALINE PHOSPHATASE 130 U/L 40-150 (BEAKER) (test znoa=550) BILIRUBIN TOTAL (BEAKER) 0.5 mg/dL 0.2-1.2 (test zbtt=407) SODIUM (BEAKER) (test 141 meq/L 136-145 xuca=982) POTASSIUM (BEAKER) (test 4.0 meq/L 3.5-5.1 ltuq=833) CHLORIDE (BEAKER) (test 104 meq/L 98-107 ypmi=930) CO2 (BEAKER) (test 21 meq/L 22-29 jcxu=343) BLOOD UREA NITROGEN 78 mg/dL 7-21 (BEAKER) (test siqv=854) CREATININE (BEAKER) (test 7.48 mg/dL 0.57-1.25 bqfj=072) GLUCOSE RANDOM (BEAKER) 110 mg/dL 70-105 (test roxk=321) CALCIUM (BEAKER) (test 7.6 mg/dL 8.4-10.2 nvfk=784) AST (SGOT) (BEAKER) (test 16 U/L 5-34 cdvj=428) ALT (SGPT) (BEAKER) (test 23 U/L 6-55 rhlg=543) EGFR (BEAKER) (test 6 mL/min/1.73 sq m ESTIMATED GFR IS NOT outh=3849) ACCURATE CREATININE CLEARANCE IN PREDICTING GLOMERULAR FILTRATION RATE. ESTIMATED GFR IS NOT APPLICABLE FOR DIALYSIS PATIENTS. CALCIUM, [id number] 06:49:00 Test Item Value Reference Range Comments CALCIUM IONIZED (BEAKER) (test ptrs=224) 0.84 mmol/L 1.12-1.27 PH, BLOOD (BEAKER) (test rrab=0995) 7.44 [id number] 06:34:00 Test Item Value Reference Range Comments PHOSPHORUS (BEAKER) (test tbem=245) 6.8 mg/dL 2.3-4.7 [id number] 06:34:00 Test Item Value Reference Range Comments MAGNESIUM (BEAKER) (test qwfh=289) 2.3 mg/dL 1.6-2.6 HEPATIC FUNCTION [id number] 06:34:00 Test Item Value Reference Range Comments TOTAL PROTEIN (BEAKER) (test whvw=820) 5.9 gm/dL 6.0-8.3 ALBUMIN (BEAKER) (test rsff=0115) 2.9 g/dL 3.5-5.0 BILIRUBIN TOTAL (BEAKER) (test zuuq=316) 0.5 mg/dL 0.2-1.2 BILIRUBIN DIRECT (BEAKER) (test cywo=150) 0.4 mg/dL 0.1-0.5 ALKALINE PHOSPHATASE (BEAKER) (test dltj=726) 130 U/L 40-150 AST (SGOT) (BEAKER) (test hryd=493) 16 U/L 5-34 ALT (SGPT) (BEAKER) (test rziu=424) 23 U/L 6-55 [id number] 06:20:00 Test Item Value Reference Range Comments PROTIME (BEAKER) (test alcz=298) 14.7 seconds 11.7-14.7 INR (BEAKER) (test dzkb=807) 1.2 <=5.9 PARTIAL THROMBOPLASTIN TIME (BEAKER) (test 32.0 seconds 22.5-36.0 zstb=061) RECOMMENDED COUMADIN/WARFARIN INR THERAPY RANGESSTANDARD DOSE: 2.0 - 3.0 Includes: PROPHYLAXIS forvenous thrombosis, systemic embolization; TREATMENT for venous thrombosis and/or pulmonary embolus.HIGH RISK: Target INR is 2.5-3.5 for patients with mechanical heart valves.CBC W/PLT COUNT & AUTO [id number] 06:13:00 Test Item Value Reference Range Comments WHITE BLOOD CELL COUNT (BEAKER) (test fvaw=636) 6.0 K/ L 3.5-10.5 RED BLOOD CELL COUNT (BEAKER) (test ikfr=854) 3.57 M/ L 3.93-5.22 HEMOGLOBIN (BEAKER) (test iouq=569) 8.8 GM/DL 11.2-15.7 HEMATOCRIT (BEAKER) (test mvtv=974) 29.6 % 34.1-44.9 MEAN CORPUSCULAR VOLUME (BEAKER) (test xced=334) 82.9 fL 79.4-94.8 MEAN CORPUSCULAR HEMOGLOBIN (BEAKER) (test 24.6 pg 25.6-32.2 udrj=663) MEAN CORPUSCULAR HEMOGLOBIN CONC (BEAKER) (test 29.7 GM/DL 32.2-35.5 robq=471) RED CELL DISTRIBUTION WIDTH (BEAKER) (test 15.3 % 11.7-14.4 lpdl=634) PLATELET COUNT (BEAKER) (test tzsr=570) 228 K/CU MM 150-450 MEAN PLATELET VOLUME (BEAKER) (test jipk=734) 10.9 fL 9.4-12.3 NUCLEATED RED BLOOD CELLS (BEAKER) (test 0 /100 WBC 0-0 hiwo=279) NEUTROPHILS RELATIVE PERCENT (BEAKER) (test 77 % xiwt=685) LYMPHOCYTES RELATIVE PERCENT (BEAKER) (test 11 % odfu=864) MONOCYTES RELATIVE PERCENT (BEAKER) (test 7 % shxx=289) EOSINOPHILS RELATIVE PERCENT (BEAKER) (test 3 % kqly=096) BASOPHILS RELATIVE PERCENT (BEAKER) (test 0 % irfw=271) NEUTROPHILS ABSOLUTE COUNT (BEAKER) (test 4.59 K/ L 1.56-6.13 nnnv=874) LYMPHOCYTES ABSOLUTE COUNT (BEAKER) (test 0.64 K/ L 1.18-3.74 ngzr=949) MONOCYTES ABSOLUTE COUNT (BEAKER) (test 0.42 K/ L 0.24-0.36 rsly=410) EOSINOPHILS ABSOLUTE COUNT (BEAKER) (test 0.18 K/ L 0.04-0.36 xoct=563) BASOPHILS ABSOLUTE COUNT (BEAKER) (test 0.01 K/ L 0.01-0.08 hams=279) IMMATURE GRANULOCYTES-RELATIVE PERCENT (BEAKER) 2 % 0-1 (test jjvm=6439) POCT-GLUCOSE [id number] 05:35:00 Test Item Value Reference Range Comments POC-GLUCOSE METER (BEAKER) 117 mg/dL 70-110 TESTED AT [address] (test ybzo=9205) [place] [address] POCT-GLUCOSE [id number] 22:54:00 Test Item Value Reference Range Comments POC-GLUCOSE METER (BEAKER) 124 mg/dL 70-110 TESTED AT [address] (test kzni=1963) [place] [address] POCT-GLUCOSE [id number] 18:00:00 Test Item Value Reference Range Comments POC-GLUCOSE METER (BEAKER) 128 mg/dL 70-110 TESTED AT [address] (test mtdd=2892) [place] [address] BLOOD [id number] 18:00:00 Test Item Value Reference Range Comments CULTURE (BEAKER) (test gess=5845) No growth in 5 days BLOOD [id number] 18:00:00 Test Item Value Reference Range Comments CULTURE (BEAKER) (test buse=1848) No growth in 5 days POCT-GLUCOSE [id number] 13:47:00 Test Item Value Reference Range Comments POC-GLUCOSE METER (BEAKER) 141 mg/dL 70-110 TESTED AT [facility] [address] (test ozoo=9728) [place] [address] CALCIUM, [id number] 07:01:00 Test Item Value Reference Range Comments CALCIUM IONIZED (BEAKER) (test vkyd=656) 0.92 mmol/L 1.12-1.27 PH, BLOOD (BEAKER) (test yqzu=1415) 7.43 [id number] 06:39:00 Test Item Value Reference Range Comments FERRITIN (BEAKER) (test tgek=543) 322 ng/mL 5-275 IRON, TIBC, % SAT. (WITHOUT FERRITIN)[id number] 06:17:00 Test Item Value Reference Range Comments IRON (BEAKER) (test wwlc=821) 19 ug/dL 40-160 TOTAL IRON BINDING CAPACITY (BEAKER) (test 198 ug/dL 250-450 psqd=761) IRON % SATURATION (2) (BEAKER) (test geiu=4526) 10 % 20-55 [id number] 06:07:00 Test Item Value Reference Range Comments PHOSPHORUS (BEAKER) (test fjtb=287) 4.4 mg/dL 2.3-4.7 [id number] 06:07:00 Test Item Value Reference Range Comments MAGNESIUM (BEAKER) (test txaw=484) 2.1 mg/dL 1.6-2.6 HEPATIC FUNCTION [id number] 06:07:00 Test Item Value Reference Range Comments TOTAL PROTEIN (BEAKER) (test bppa=259) 6.4 gm/dL 6.0-8.3 ALBUMIN (BEAKER) (test faud=2440) 3.1 g/dL 3.5-5.0 BILIRUBIN TOTAL (BEAKER) (test omok=325) 0.7 mg/dL 0.2-1.2 BILIRUBIN DIRECT (BEAKER) (test siiy=604) 0.5 mg/dL 0.1-0.5 ALKALINE PHOSPHATASE (BEAKER) (test qtns=300) 141 U/L 40-150 AST (SGOT) (BEAKER) (test uktw=792) 20 U/L 5-34 ALT (SGPT) (BEAKER) (test qcfx=755) 32 U/L 6-55 BASIC METABOLIC [id number] 05:59:00 Test Item Value Reference Range Comments SODIUM (BEAKER) (test 140 meq/L 136-145 dsdi=971) POTASSIUM (BEAKER) (test 4.0 meq/L 3.5-5.1 hghm=291) CHLORIDE (BEAKER) (test 102 meq/L 98-107 xaxu=655) CO2 (BEAKER) (test 22 meq/L 22-29 vmck=707) BLOOD UREA NITROGEN 53 mg/dL 7-21 (BEAKER) (test zbbe=761) CREATININE (BEAKER) (test 5.66 mg/dL 0.57-1.25 ckwn=649) GLUCOSE RANDOM (BEAKER) 142 mg/dL 70-105 (test poyf=548) CALCIUM (BEAKER) (test 8.1 mg/dL 8.4-10.2 xwzi=151) EGFR (BEAKER) (test 8 mL/min/1.73 sq m ESTIMATED GFR IS NOT wtvl=5168) ACCURATE CREATININE CLEARANCE IN PREDICTING GLOMERULAR FILTRATION RATE. ESTIMATED GFR IS NOT APPLICABLE FOR DIALYSIS PATIENTS. POCT-GLUCOSE [id number] 05:43:00 Test Item Value Reference Range Comments POC-GLUCOSE METER (BEAKER) 156 mg/dL 70-110 TESTED AT [facility] [address] [facility] (test byln=7134) [facility] [address] RETICULOCYTE [id number] 05:32:00 Test Item Value Reference Range Comments RETICULOCYTE COUNT PCT (BEAKER) (test ajhi=801) 0.6 % 0.5-1.7 CBC W/PLT COUNT & AUTO [id number] 05:30:00 Test Item Value Reference Range Comments WHITE BLOOD CELL COUNT (BEAKER) (test qnts=865) 7.6 K/ L 3.5-10.5 RED BLOOD CELL COUNT (BEAKER) (test oxoz=706) 3.94 M/ L 3.93-5.22 HEMOGLOBIN (BEAKER) (test gfkx=050) 9.6 GM/DL 11.2-15.7 HEMATOCRIT (BEAKER) (test dbbo=914) 32.7 % 34.1-44.9 MEAN CORPUSCULAR VOLUME (BEAKER) (test yger=280) 83.0 fL 79.4-94.8 MEAN CORPUSCULAR HEMOGLOBIN (BEAKER) (test 24.4 pg 25.6-32.2 xkdc=314) MEAN CORPUSCULAR HEMOGLOBIN CONC (BEAKER) (test 29.4 GM/DL 32.2-35.5 mdtk=545) RED CELL DISTRIBUTION WIDTH (BEAKER) (test 15.2 % 11.7-14.4 krjn=886) PLATELET COUNT (BEAKER) (test fasn=932) 182 K/CU MM 150-450 MEAN PLATELET VOLUME (BEAKER) (test byks=691) 11.4 fL 9.4-12.3 NUCLEATED RED BLOOD CELLS (BEAKER) (test 0 /100 WBC 0-0 ekjk=264) NEUTROPHILS RELATIVE PERCENT (BEAKER) (test 78 % bftp=619) LYMPHOCYTES RELATIVE PERCENT (BEAKER) (test 10 % ynyh=904) MONOCYTES RELATIVE PERCENT (BEAKER) (test 8 % bxfy=717) EOSINOPHILS RELATIVE PERCENT (BEAKER) (test 2 % ycax=971) BASOPHILS RELATIVE PERCENT (BEAKER) (test 0 % elhh=910) NEUTROPHILS ABSOLUTE COUNT (BEAKER) (test 5.91 K/ L 1.56-6.13 ayjw=498) LYMPHOCYTES ABSOLUTE COUNT (BEAKER) (test 0.78 K/ L 1.18-3.74 dcos=451) MONOCYTES ABSOLUTE COUNT (BEAKER) (test 0.60 K/ L 0.24-0.36 aucg=542) EOSINOPHILS ABSOLUTE COUNT (BEAKER) (test 0.15 K/ L 0.04-0.36 ydqi=075) BASOPHILS ABSOLUTE COUNT (BEAKER) (test 0.02 K/ L 0.01-0.08 sxfs=303) IMMATURE GRANULOCYTES-RELATIVE PERCENT (BEAKER) 2 % 0-1 (test wirm=5243) POCT-GLUCOSE [id number] 22:54:00 Test Item Value Reference Range Comments POC-GLUCOSE METER (BEAKER) 143 mg/dL 70-110 TESTED AT [facility] [address] [facility] (test eqhq=9150) [facility] [address] POCT-GLUCOSE [id number] 16:56:00 Test Item Value Reference Range Comments POC-GLUCOSE METER (BEAKER) 145 mg/dL 70-110 TESTED AT [place] [id number] [facility] (test ldng=4086) [facility] [address] RAD, ABDOMEN/KUB, 1 VIEW [id number] 16:40:00Reason for exam:->feeding tube placement. Should this be performed at the bedside?->YesFINAL REPORT History: Feeding tube placement COMPARISON: 05/19/2018 DISCUSSION : A single frontal view of the abdomen was submitted for interpretation. A feeding tube catheter is identified with the tip projecting over the expected location of the mid body of the stomach. Signed: Pina Cohen MDReport Verified Date/Time: 05/20/2018 16:40:25 Reading Location: [address] ConsultReading Room POCT-GLUCOSE [id number] 13:58:00 Test Item Value Reference Range Comments POC-GLUCOSE METER (BEAKER) 179 mg/dL 70-110 TESTED AT [facility] [address] [facility] (test lqsy=6912) [facility] [address] CBC W/PLT COUNT & AUTO [id number] 07:16:00 Test Item Value Reference Range Comments WHITE BLOOD CELL COUNT (BEAKER) (test bgqv=798) 9.3 K/ L 3.5-10.5 RED BLOOD CELL COUNT (BEAKER) (test fype=989) 3.91 M/ L 3.93-5.22 HEMOGLOBIN (BEAKER) (test urav=576) 9.6 GM/DL 11.2-15.7 HEMATOCRIT (BEAKER) (test tzps=027) 32.2 % 34.1-44.9 MEAN CORPUSCULAR VOLUME (BEAKER) (test aofy=545) 82.4 fL 79.4-94.8 MEAN CORPUSCULAR HEMOGLOBIN (BEAKER) (test 24.6 pg 25.6-32.2 nifl=106) MEAN CORPUSCULAR HEMOGLOBIN CONC (BEAKER) (test 29.8 GM/DL 32.2-35.5 rhbq=102) RED CELL DISTRIBUTION WIDTH (BEAKER) (test 15.3 % 11.7-14.4 mufg=924) PLATELET COUNT (BEAKER) (test wlbi=085) 122 K/CU MM 150-450 MEAN PLATELET VOLUME (BEAKER) (test rmwb=165) 12.9 fL 9.4-12.3 NUCLEATED RED BLOOD CELLS (BEAKER) (test 0 /100 WBC 0-0 oukf=785) NEUTROPHILS RELATIVE PERCENT (BEAKER) (test 83 % ooqv=948) LYMPHOCYTES RELATIVE PERCENT (BEAKER) (test 7 % xnff=132) MONOCYTES RELATIVE PERCENT (BEAKER) (test 9 % pmqe=705) EOSINOPHILS RELATIVE PERCENT (BEAKER) (test 1 % dvac=121) BASOPHILS RELATIVE PERCENT (BEAKER) (test 0 % vswx=397) NEUTROPHILS ABSOLUTE COUNT (BEAKER) (test 7.65 K/ L 1.56-6.13 iplg=926) LYMPHOCYTES ABSOLUTE COUNT (BEAKER) (test 0.62 K/ L 1.18-3.74 luao=316) MONOCYTES ABSOLUTE COUNT (BEAKER) (test 0.81 K/ L 0.24-0.36 fcmr=439) EOSINOPHILS ABSOLUTE COUNT (BEAKER) (test 0.07 K/ L 0.04-0.36 ujbz=145) BASOPHILS ABSOLUTE COUNT (BEAKER) (test 0.02 K/ L 0.01-0.08 owgd=555) IMMATURE GRANULOCYTES-RELATIVE PERCENT (BEAKER) 1 % 0-1 (test tmkx=9352) CALCIUM, [id number] 07:02:00 Test Item Value Reference Range Comments CALCIUM IONIZED (BEAKER) (test tcfv=826) 0.92 mmol/L 1.12-1.27 PH, BLOOD (BEAKER) (test rdzp=7142) 7.47 COMPREHENSIVE METABOLIC [id number] 06:53:00 Test Item Value Reference Range Comments TOTAL PROTEIN (BEAKER) 6.5 gm/dL 6.0-8.3 (test exaq=769) ALBUMIN (BEAKER) (test 3.2 g/dL 3.5-5.0 jlfu=2579) ALKALINE PHOSPHATASE 165 U/L 40-150 (BEAKER) (test lsul=217) BILIRUBIN TOTAL (BEAKER) 0.9 mg/dL 0.2-1.2 (test oijb=074) SODIUM (BEAKER) (test 139 meq/L 136-145 sani=300) POTASSIUM (BEAKER) (test 3.9 meq/L 3.5-5.1 tyag=511) CHLORIDE (BEAKER) (test 101 meq/L 98-107 ppxx=998) CO2 (BEAKER) (test 28 meq/L 22-29 mays=441) BLOOD UREA NITROGEN 30 mg/dL 7-21 (BEAKER) (test scea=866) CREATININE (BEAKER) (test 3.61 mg/dL 0.57-1.25 ejqw=089) GLUCOSE RANDOM (BEAKER) 205 mg/dL 70-105 (test msya=485) CALCIUM (BEAKER) (test 8.6 mg/dL 8.4-10.2 uvci=371) AST (SGOT) (BEAKER) (test 19 U/L 5-34 vbvl=337) ALT (SGPT) (BEAKER) (test 40 U/L 6-55 iknv=321) EGFR (BEAKER) (test 13 mL/min/1.73 sq m ESTIMATED GFR IS NOT ihfr=9772) ACCURATE CREATININE CLEARANCE IN PREDICTING GLOMERULAR FILTRATION RATE. ESTIMATED GFR IS NOT APPLICABLE FOR DIALYSIS PATIENTS. [id number] 06:52:00 Test Item Value Reference Range Comments PHOSPHORUS (BEAKER) (test onay=430) 2.6 mg/dL 2.3-4.7 [id number] 06:52:00 Test Item Value Reference Range Comments MAGNESIUM (BEAKER) (test cjnq=114) 2.0 mg/dL 1.6-2.6 HEPATIC FUNCTION [id number] 06:52:00 Test Item Value Reference Range Comments TOTAL PROTEIN (BEAKER) (test zvgx=470) 6.5 gm/dL 6.0-8.3 ALBUMIN (BEAKER) (test myxl=3336) 3.2 g/dL 3.5-5.0 BILIRUBIN TOTAL (BEAKER) (test ybng=972) 0.9 mg/dL 0.2-1.2 BILIRUBIN DIRECT (BEAKER) (test ctbf=740) 0.6 mg/dL 0.1-0.5 ALKALINE PHOSPHATASE (BEAKER) (test nhbj=933) 165 U/L 40-150 AST (SGOT) (BEAKER) (test yrxi=640) 19 U/L 5-34 ALT (SGPT) (BEAKER) (test wivh=857) 40 U/L 6-55 OXYGEN SATURATION, [id number] 06:50:00 Test Item Value Reference Range Comments O2 SATURATION (MEASURED) (BEAKER) (test dgmr=6317) 95.3 % If patient has internal jugular ( IJ) or subclavian central line or PICC line. Draw from distal port. Label as central venous oxygen.POCT-GLUCOSE [id number] 05:26:00 Test Item Value Reference Range Comments POC-GLUCOSE METER (BEAKER) 212 mg/dL 70-110 TESTED AT [address] (test ktun=9404) [place] [id number] POCT-GLUCOSE [id number] 23:23:00 Test Item Value Reference Range Comments POC-GLUCOSE METER (BEAKER) 251 mg/dL 70-110 TESTED AT [address] (test hvmr=1342) [place] [address] RAD, ABDOMEN/KUB, 1 VIEW [id number] 18:28:00Reason for exam:->corpak placement Should this be performed at the bedside?->YesFINAL REPORT Abdomen, one view Clinical indications: Corpak placement COMPARISON: 05/16/2018 FINDINGS:The tip of the Corpak feeding tube overlies the 2nd portion of the duodenum.A nasogastric tube overlies the gastric body. Signed : Aquiles Camacho [facility] Verified Date/Time: 05/19/2018 18:28:55 Reading Location: [facility] C0W Consult Reading Room POCT-GLUCOSE [id number] 18:27: 00 Test Item Value Reference Range Comments POC-GLUCOSE METER (BEAKER) 161 mg/dL 70-110 TESTED AT [address] (test naqc=5944) [place] [address] POCT-GLUCOSE [id number] 12:00:00 Test Item Value Reference Range Comments POC-GLUCOSE METER (BEAKER) 211 mg/dL 70-110 TESTED AT [address] (test ouwr=8295) [place] [address] BODY FLUID CULTURE + GRAM [id number] 11:33:00 Test Item Value Reference Range Comments CULTURE (BEAKER) (test KLEBSIELLA PNEUMONIAE 2+ Klebsiella kant=6539) SSP OZAENAE pneumoniae ssp ozaenae Amikacin (test code=1) Ampicillin + Sulbactam (test code=6) Aztreonam (test code=32) Cefepime (test code=51) Cefoxitin (test code=68) Ceftazidime (test code=27) Ceftriaxone (test code=52) Ertapenem (test code=38) Gentamicin (test code=18) Levofloxacin (test code=22) Meropenem (test code=34) Nitrofurantoin (test code=23) Piperacillin + Tazobactam (test code=29) Tetracycline (test code=2) Tobramycin (test code=25) Trimethoprim + Sulfamethoxazole (test code=47) CULTURE (BEAKER) (test KLEBSIELLA PNEUMONIAE 1+ Klebsiella sjjd=6324) SSP OZAENAE pneumoniae ssp ozaenaeof a second type Amikacin (test code=1) Ampicillin + Sulbactam (test code=6) Aztreonam (test code=32) Cefepime (test code=51) Cefoxitin (test code=68) Ceftazidime (test code=27) Ceftriaxone (test code=52) Ertapenem (test code=38) Gentamicin (test code=18) Levofloxacin (test code=22) Meropenem (test code=34) Nitrofurantoin (test code=23) Piperacillin + Tazobactam (test code=29) Tetracycline (test code=2) Tobramycin (test code=25) Trimethoprim + Sulfamethoxazole (test code=47) GRAM STAIN RESULT (BEAKER) 3+ WBCs (test zyho=2748) GRAM STAIN RESULT (BEAKER) 1+ gram negative rods (test dzkb=137526) GRAM STAIN RESULT (BEAKER) <1+ gram positive (test bidu=093059) cocci in chains POCT-GLUCOSE [id number] 06:34:00 Test Item Value Reference Range Comments POC-GLUCOSE METER (BEAKER) 276 mg/dL 70-110 TESTED AT [address] (test wvcw=5846) [facility] [address] CALCIUM, [id number] 06:27:00 Test Item Value Reference Range Comments CALCIUM IONIZED (BEAKER) (test yfwz=531) 1.06 mmol/L 1.12-1.27 PH, BLOOD (BEAKER) (test unrk=1284) 7.30 COMPREHENSIVE METABOLIC [id number] 04:15:00 Test Item Value Reference Range Comments TOTAL PROTEIN (BEAKER) 6.1 gm/dL 6.0-8.3 (test oxjc=521) ALBUMIN (BEAKER) (test 2.9 g/dL 3.5-5.0 mxij=5658) ALKALINE PHOSPHATASE 186 U/L 40-150 (BEAKER) (test rudf=323) BILIRUBIN TOTAL (BEAKER) 0.8 mg/dL 0.2-1.2 (test xarx=696) SODIUM (BEAKER) (test 140 meq/L 136-145 vrod=303) POTASSIUM (BEAKER) (test 3.9 meq/L 3.5-5.1 lcxy=317) CHLORIDE (BEAKER) (test 102 meq/L 98-107 wqmg=403) CO2 (BEAKER) (test 27 meq/L 22-29 fbcz=130) BLOOD UREA NITROGEN 49 mg/dL 7-21 (BEAKER) (test kzuf=926) CREATININE (BEAKER) (test 4.37 mg/dL 0.57-1.25 wojw=091) GLUCOSE RANDOM (BEAKER) 205 mg/dL 70-105 (test zhwh=500) CALCIUM (BEAKER) (test 8.1 mg/dL 8.4-10.2 sowj=675) AST (SGOT) (BEAKER) (test 20 U/L 5-34 czmu=202) ALT (SGPT) (BEAKER) (test 63 U/L 6-55 ktgk=966) EGFR (BEAKER) (test 10 mL/min/1.73 sq m ESTIMATED GFR IS NOT kdlv=1638) ACCURATE CREATININE CLEARANCE IN PREDICTING GLOMERULAR FILTRATION RATE. ESTIMATED GFR IS NOT APPLICABLE FOR DIALYSIS PATIENTS. [id number] 04:04:00 Test Item Value Reference Range Comments PHOSPHORUS (BEAKER) (test giew=679) 4.1 mg/dL 2.3-4.7 [id number] 04:04:00 Test Item Value Reference Range Comments MAGNESIUM (BEAKER) (test afbg=512) 2.3 mg/dL 1.6-2.6 HEPATIC FUNCTION [id number] 04:04:00 Test Item Value Reference Range Comments TOTAL PROTEIN (BEAKER) (test vnwq=628) 6.1 gm/dL 6.0-8.3 ALBUMIN (BEAKER) (test xgfx=7919) 2.9 g/dL 3.5-5.0 BILIRUBIN TOTAL (BEAKER) (test ylxm=184) 0.8 mg/dL 0.2-1.2 BILIRUBIN DIRECT (BEAKER) (test oibb=893) 0.6 mg/dL 0.1-0.5 ALKALINE PHOSPHATASE (BEAKER) (test sukx=150) 186 U/L 40-150 AST (SGOT) (BEAKER) (test rwza=591) 20 U/L 5-34 ALT (SGPT) (BEAKER) (test ebpe=579) 63 U/L 6-55 CBC W/PLT COUNT & AUTO [id number] 03:47:00 Test Item Value Reference Range Comments WHITE BLOOD CELL COUNT (BEAKER) (test gidc=790) 5.1 K/ L 3.5-10.5 RED BLOOD CELL COUNT (BEAKER) (test dbfc=424) 3.77 M/ L 3.93-5.22 HEMOGLOBIN (BEAKER) (test fyky=889) 9.5 GM/DL 11.2-15.7 HEMATOCRIT (BEAKER) (test zlvl=247) 31.6 % 34.1-44.9 MEAN CORPUSCULAR VOLUME (BEAKER) (test cqah=524) 83.8 fL 79.4-94.8 MEAN CORPUSCULAR HEMOGLOBIN (BEAKER) (test 25.2 pg 25.6-32.2 rfoe=917) MEAN CORPUSCULAR HEMOGLOBIN CONC (BEAKER) (test 30.1 GM/DL 32.2-35.5 dpfg=197) RED CELL DISTRIBUTION WIDTH (BEAKER) (test 15.9 % 11.7-14.4 jhgv=739) PLATELET COUNT (BEAKER) (test jrjv=224) 96 K/CU MM 150-450 MEAN PLATELET VOLUME (BEAKER) (test vhsv=898) 11.4 fL 9.4-12.3 NUCLEATED RED BLOOD CELLS (BEAKER) (test 0 /100 WBC 0-0 fnif=898) NEUTROPHILS RELATIVE PERCENT (BEAKER) (test 76 % tuoa=627) LYMPHOCYTES RELATIVE PERCENT (BEAKER) (test 12 % memw=215) MONOCYTES RELATIVE PERCENT (BEAKER) (test 10 % whiw=225) EOSINOPHILS RELATIVE PERCENT (BEAKER) (test 1 % tcqu=235) BASOPHILS RELATIVE PERCENT (BEAKER) (test 0 % rvhf=258) NEUTROPHILS ABSOLUTE COUNT (BEAKER) (test 3.88 K/ L 1.56-6.13 qqvd=818) LYMPHOCYTES ABSOLUTE COUNT (BEAKER) (test 0.59 K/ L 1.18-3.74 hbzk=840) MONOCYTES ABSOLUTE COUNT (BEAKER) (test yhsg=839) 0.53 K/ L 0.24-0.36 EOSINOPHILS ABSOLUTE COUNT (BEAKER) (test 0.04 K/ L 0.04-0.36 bdhe=823) BASOPHILS ABSOLUTE COUNT (BEAKER) (test kckc=280) 0.01 K/ L 0.01-0.08 IMMATURE GRANULOCYTES-RELATIVE PERCENT (BEAKER) 1 % 0-1 (test bkgv=9904) POCT-GLUCOSE [id number] 00:18:00 Test Item Value Reference Range Comments POC-GLUCOSE METER (BEAKER) 200 mg/dL 70-110 TESTED AT [place] [id number] [facility] (test ycoj=7930) [place] [id number] POCT-GLUCOSE [id number] 18:47:00 Test Item Value Reference Range Comments POC-GLUCOSE METER (BEAKER) 133 mg/dL 70-110 TESTED AT [place] [id number] [facility] (test fuhu=5307) [place] [address] U/S, ABDOMINAL, [id number] 16:09:00Abdomen limited area? Add comment if clarification is needed.->Gall BladderReason for exam:->evaluate location of cholecystostomy tubeFINAL REPORT Limited abdomen ultrasound.Clinical diagnosis gallbladder tube placement.Nine images were submitted for interpretation using a 5 MHz transducer.There is no evidence of a distended gallbladder. The catheter is not well visualized since there is no evidence of a fluidwindow. Injecting contrast through the tube may determine whether or not the tube is patent and appropriate position. Correlation with a CT scan would also better visualize the catheter placement. Signed: Radha Elena MDReport Verified Date/Time: 05/18/2018 16:09:36 Reading Location: [facility] [id number] Ultrasound Reading Room EEG AWAKE AND [id number] 14:24:00Reason for exam:-& gt;Follow up EEG for [facility] EEG REPORTDATE OF TEST: 2017DATE OF REPORT: [id number]: [id number]: [id number] time: 09:30Stop time: 09:51ICD-10: R 56.9CPT Code: 59886RKTOKFP: 57 y old female with h/o diabetes, hypertension, strokes, liver and kidney disease presents with alteration of mental status.MEDICATIONS: fentanyl, insulinTECHNICAL SUMMARY: This is a digital video EEG [...] sharp transients. Stage 2 sleep was not reached.HV: Hyperventilation was not performed. PHOTIC STIMULATION: Photic stimulation was not done. VIDEO EVENTS RECORDED: noneELECTROCARDIOGRAM EVENTS: noneIMPRESSION: Abnormal awake and drowsy EEG a. Presence of slow posterior dominant rhythm b. Presence of intermittent reactive delta- theta slowing CLINICAL CORRELATION: Presence of slow posterior dominant rhythm and delta-theta slowing are consistent with moderate degree of encephalopathy. An EEG without epileptiform discharges does not exclude the possibility of epilepsy. If the clinical suspicion of epilepsy remains, consider additional EEG recordings. Gurvinder Henry MDNeurophysiology Fellow Petr Winston M.D. , FACNS, FAAN, FAESProfessor of Neurology, [facility] General HospitalDirector, [facility] Epilepsy [facility] Neurophysiology Lab POCT- GLUCOSE [id number] 14:17:00 Test Item Value Reference Range Comments POC-GLUCOSE METER (BEAKER) 111 mg/dL 70-110 TESTED AT [facility] [address] [facility] (test tppw=7612) [facility] [address] BLOOD [id number] 13:57:00 Test Item Value Reference Range Comments CULTURE (BEAKER) (test KLEBSIELLA From Aerobic And ulax=4833) PNEUMONIAE Anaerobic Bottles Klebsiella pneumoniae Amikacin (test code=1) Ampicillin + Sulbactam (test code=6) Aztreonam (test code=32) Cefepime (test code=51) Cefoxitin (test code=68) Ceftazidime (test code=27) Ceftriaxone (test code=52) Ertapenem (test code=38) Gentamicin (test code=18) Levofloxacin (test code=22) Meropenem (test code=34) Piperacillin + Tazobactam (test code=29) Tetracycline (test code=2) Tobramycin (test code=25) Trimethoprim + Sulfamethoxazole (test code=47) CULTURE (BEAKER) (test KLEBSIELLA From Aerobic And ygau=9389) PNEUMONIAE Anaerobic Bottles Klebsiella pneumoniaeof a second type Amikacin (test code=1) Ampicillin + Sulbactam (test code=6) Aztreonam (test code=32) Cefepime (test code=51) Cefoxitin (test code=68) Ceftazidime (test code=27) Ceftriaxone (test code=52) Ertapenem (test code=38) Gentamicin (test code=18) Levofloxacin (test code=22) Meropenem (test code=34) Nitrofurantoin (test code=23) Piperacillin + Tazobactam (test code=29) Tetracycline (test code=2) Tobramycin (test code=25) Trimethoprim + Sulfamethoxazole (test code=47) GRAM STAIN RESULT (BEAKER) From aerobic and (test mutv=2880) anaerobic bottles: gram negative rods KLEBSIELLA PNEUMONIAE DETECTEDKPC (a carbapenamase gene) not detectedFirst line therapy: meropenem. De-escalate based on susceptibilitiesThis test does not evaluate for ESBLOther organisms and resistance markers not contained in this PCR panel cannot be excluded and follow-up of traditional culture results is required. This sample was tested at the [facility] Clinical Microbiology Laboratory using the [employer] Blood Culture ID Panel. This test is FDA cleared for in vitro diagnostic use and has been verified and approved by the [facility] Clinical Microbiology laboratory for clinical use. Reference Range: Not DetectedBLOOD [id number] 13:54:00 Test Item Value Reference Range Comments CULTURE (BEAKER) (test From Aerobic And dfke=1569) Anaerobic Bottles Same organism has been isolated from cultures(s) of the same body site and collection date. Repeat identification and susceptibility testing performed only after consultation with the clinical microbiology laboratory.Refer to previous culture ofKlebsiella pneumoniaeof a second type CULTURE (BEAKER) (test KLEBSIELLA From Aerobic And nbxw=5890) PNEUMONIAE Anaerobic Bottles Klebsiella pneumoniaeof a third type Amikacin (test code=1) Ampicillin + Sulbactam (test code=6) Aztreonam (test code=32) Cefepime (test code=51) Cefoxitin (test code=68) Ceftazidime (test code=27) Ceftriaxone (test code=52) Ertapenem (test code=38) Gentamicin (test code=18) Levofloxacin (test code=22) Meropenem (test code=34) Nitrofurantoin (test code=23) Piperacillin + Tazobactam (test code=29) Tetracycline (test code=2) Tobramycin (test code=25) Trimethoprim + Sulfamethoxazole (test code=47) GRAM STAIN RESULT (BEAKER) From aerobic and (test mymh=0192) anaerobic bottles: gram negative rods POCT-GLUCOSE [id number] 12:03:00 Test Item Value Reference Range Comments POC-GLUCOSE METER (BEAKER) 91 mg/dL 70-110 TESTED AT [address] (test hjbg=3493) [facility] [address] CBC W/PLT COUNT & AUTO [id number] 07:13:00 Test Item Value Reference Range Comments WHITE BLOOD CELL COUNT (BEAKER) (test vxxk=805) 12.4 K/ L 3.5-10.5 RED BLOOD CELL COUNT (BEAKER) (test aqrw=202) 3.58 M/ L 3.93-5.22 HEMOGLOBIN (BEAKER) (test ydxo=444) 8.8 GM/DL 11.2-15.7 HEMATOCRIT (BEAKER) (test kmhq=937) 29.3 % 34.1-44.9 MEAN CORPUSCULAR VOLUME (BEAKER) (test abio=385) 81.8 fL 79.4-94.8 MEAN CORPUSCULAR HEMOGLOBIN (BEAKER) (test 24.6 pg 25.6-32.2 shkj=852) MEAN CORPUSCULAR HEMOGLOBIN CONC (BEAKER) (test 30.0 GM/DL 32.2-35.5 trql=742) RED CELL DISTRIBUTION WIDTH (BEAKER) (test 16.3 % 11.7-14.4 saak=248) PLATELET COUNT (BEAKER) (test jtxw=276) 116 K/CU MM 150-450 MEAN PLATELET VOLUME (BEAKER) (test tved=649) 11.8 fL 9.4-12.3 NUCLEATED RED BLOOD CELLS (BEAKER) (test 0 /100 WBC 0-0 gwus=638) (CELLAVISION MANUAL DIFF)2018-05-18 07:13:00 Test Item Value Reference Range Comments NEUTROPHILS - REL (CELLAVISION)(BEAKER) (test 82 % cvdg=9421) LYMPHOCYTES - REL (CELLAVISION)(BEAKER) (test 13 % xklo=8115) MONOCYTES - REL (CELLAVISION)(BEAKER) (test 5 % ylhv=8319) NEUTROPHILS - ABS (CELLAVISION)(BEAKER) (test 10.17 K/ul 1.56-6.13 tkzc=3515) LYMPHOCYTES - ABS (CELLAVISION)(BEAKER) (test 1.61 K/ul 1.18-3.74 aupu=3391) MONOCYTES - ABS (CELLAVISION)(BEAKER) (test 0.62 K/uL 0.24-0.36 mysj=4421) TOTAL COUNTED (BEAKER) (test oiwz=9847) 100 WBC MORPHOLOGY (BEAKER) (test rvah=303) Normal PLT MORPHOLOGY (BEAKER) (test jxrf=858) Normal ANISOCYTOSIS (BEAKER) (test gfsk=255) 1+ few MICROCYTES (BEAKER) (test smqf=218) 1+ few POIKILOCYTES (BEAKER) (test zeou=151) 1+ few ARTIFACT (CELLAVISION)(BEAKER) (test prdj=2783) Present PLATELET CONCENTRATION (CELLAVISION)(BEAKER) Decreased (test hpmz=4044) Received comment: User comments: Slide comments:POCT-GLUCOSE [id number] 06: 24:00 Test Item Value Reference Range Comments POC-GLUCOSE METER (BEAKER) 93 mg/dL 70-110 TESTED AT [facility] [address] [facility] (test wiyo=3222) [facility] [address] BASIC METABOLIC [id number] 04:07:00 Test Item Value Reference Range Comments SODIUM (BEAKER) (test 142 meq/L 136-145 fuhi=050) POTASSIUM (BEAKER) (test 3.8 meq/L 3.5-5.1 mrmc=638) CHLORIDE (BEAKER) (test 102 meq/L 98-107 bipo=209) CO2 (BEAKER) (test 28 meq/L 22-29 bmbp=090) BLOOD UREA NITROGEN 56 mg/dL 7-21 (BEAKER) (test bjab=623) CREATININE (BEAKER) (test 5.01 mg/dL 0.57-1.25 bxde=437) GLUCOSE RANDOM (BEAKER) 96 mg/dL 70-105 (test byzz=713) CALCIUM (BEAKER) (test 8.6 mg/dL 8.4-10.2 yoqs=807) EGFR (BEAKER) (test 9 mL/min/1.73 sq m ESTIMATED GFR IS NOT cvsr=3587) ACCURATE CREATININE CLEARANCE IN PREDICTING GLOMERULAR FILTRATION RATE. ESTIMATED GFR IS NOT APPLICABLE FOR DIALYSIS PATIENTS. [id number] 04:02:00 Test Item Value Reference Range Comments PHOSPHORUS (BEAKER) (test xabz=807) 5.5 mg/dL 2.3-4.7 [id number] 04:02:00 Test Item Value Reference Range Comments MAGNESIUM (BEAKER) (test jprb=985) 2.5 mg/dL 1.6-2.6 HEPATIC FUNCTION [id number] 04:02:00 Test Item Value Reference Range Comments TOTAL PROTEIN (BEAKER) (test advx=158) 6.1 gm/dL 6.0-8.3 ALBUMIN (BEAKER) (test mnry=8476) 3.0 g/dL 3.5-5.0 BILIRUBIN TOTAL (BEAKER) (test gkhj=927) 1.1 mg/dL 0.2-1.2 BILIRUBIN DIRECT (BEAKER) (test ywup=900) 0.9 mg/dL 0.1-0.5 ALKALINE PHOSPHATASE (BEAKER) (test xvax=935) 234 U/L 40-150 AST (SGOT) (BEAKER) (test kjfu=851) 34 U/L 5-34 ALT (SGPT) (BEAKER) (test vonk=017) 104 U/L 6-55 BLOOD GAS, [id number] 04:01:00 Test Item Value Reference Range Comments PH ARTERIAL (BEAKER) (test ucrh=257) 7.38 7.35-7.45 PCO2 ARTERIAL (BEAKER) (test fevm=836) 50 mmHg 35-45 PO2 ARTERIAL (BEAKER) (test ravi=921) 170 mmHg 80-90 O2 SATURATION ARTERIAL (BEAKER) (test xnbx=067) 99.1 % 96.0-97.0 HCO3 ARTERIAL (BEAKER) (test tlsv=336) 29 mmol/L 21-29 BASE EXCESS ARTERIAL (BEAKER) (test bffl=542) 3.5 mmol/L -2.0-3.0 PATIENT TEMPERATURE (BEAKER) (test pvig=0022) 37.0 C FIO2 (BEAKER) (test jzle=3143) 30.0 % PROTHROMBIN [id number] 03:50:00 Test Item Value Reference Range Comments PROTIME (BEAKER) (test kbtz=663) 13.7 seconds 11.7-14.7 INR (BEAKER) (test fvtf=181) 1.1 <=5.9 RECOMMENDED COUMADIN/WARFARIN INR THERAPY RANGESSTANDARD DOSE: 2.0 - 3.0 Includes: PROPHYLAXIS forvenous thrombosis, systemic embolization; TREATMENT for venous thrombosis and/or pulmonary embolus.HIGH RISK: Target INR is 2.5-3.5 for patients with mechanical heart valves.POCT-GLUCOSE [id number] 00:08:00 Test Item Value Reference Range Comments POC-GLUCOSE METER (BEAKER) 99 mg/dL 70-110 TESTED AT [address] (test mwka=1215) [place] [address] SPUTUM CULTURE + GRAM [id number] 00:02:00 Test Item Value Reference Range Comments CULTURE (BEAKER) (test <1+ Normal respiratory ziyad kqfh=9251) present GRAM STAIN RESULT (BEAKER) 1+ WBCs (test xujx=7403) GRAM STAIN RESULT (BEAKER) 0-5 epithelial cells (test whuu=31482) GRAM STAIN RESULT (BEAKER) No organisms seen (test ogol=01654) POCT-GLUCOSE [id number] 17:50:00 Test Item Value Reference Range Comments POC-GLUCOSE METER (BEAKER) 163 mg/dL 70-110 TESTED AT [address] (test yyub=8909) [place] [id number] RAD, CHEST, 1 VIEW, NON [id number] 16:34:00Reason for exam:->Trialysis line placement Right IJ Should this be performed at the bedside?->YesFINAL REPORT EXAM: Frontal chest radiograph HISTORY PROVIDED: Trialysis line placement COMPARISON: 05/17/2018 at 1151 IMPRESSION:There has been interval placement of a right IJ central venous catheter with the tip projecting over the cavoatrial junction. The other right IJ catheter and the left IJ catheter have been removed. Remaining support lines and tubes are in unchanged position. Pulmonary vascular congestion persists without overt pulmonary edema. No pneumothorax or significant pleural fluid. Cardiomediastinal contours are stable. Signed: Paul Ellis MDReport Verified Date/Time: 05/17/2018 16:34:19 Reading Location: [facility] Reading Room U/ S, DRAINAGE, W/ CATH [id number] 15:23:00Reason for exam:-> cholecystostomy tube; acute cholecystitisShould this be performed at the bedside ?->YesFINAL REPORT Cholecystostomy tube insertion. History: Acute cholecystitis Modality: Ultrasound Sedation: None Structural Engineer: Aquiles Camacho MD. Paint Specialist: None. Approach: Transhepatic Estimated blood loss: < 5 cc. Specimen: 10 mm of grossly purulent fluid was collected and sent for culture. Technique: Informed written consent was obtained. Discussion of risks, benefits, and alternatives were made with the patient's . The patient'shusband expressed understanding and agreed to proceed. A [...] skin incision was made. Under direct ultrasound guidancea 6 Scottish vascular pigtail catheter was advanced into the gallbladder lumen using a single stick trocar technique. Once the catheter tip was within the gallbladder lumen the catheter was fed off the stylette and coiled within the gallbladder. Ultrasound images document the location of the tube withinthe gallbladder. The pigtail was locked. The catheter secured the patient's skin with 2-0 silk. Approximately 10 mL of purulent material was then aspirated and sent for culture. The catheter was dressed with sterile gauze and occlusive Tegaderm dressing. Impression: Technically successful and uncomplicated ultrasound guided transhepatic cholecystostomy tube placement. Signed: Aquiles Camacho Verified Date/Time: 05/17/2018 15:23:46 Reading Location: [facility] Trans[facility] Reading Room HEPATITIS B [id number] 14:06:00 Test Item Value Reference Range Comments HEPATITIS B CORE TOTAL ANTIBODY (BEAKER) (test Reactive Nonreactive paug=186) HEPATITIS B SURFACE ANTIBODY (BEAKER) (test < mIU/mL <8.0 dqpw=010) HEPATITIS B SURFACE ANTIGEN (2) (BEAKER) (test Nonreactive Nonreactive vxjr=0202) RAD, CHEST, 1 VIEW, NON [id number] 12:30:00Reason for exam:->trialysis line placementShould this be performed at the bedside?->YesFINAL REPORT Chest one view compared to May 16 Discussion: There is atypicalpositioning of the left IJ multilumen catheter. Position correction is likely warranted. Patient's nurse Diana notified with instructions to contact the primary team with this finalized report. Support tubes and right IJ line in place. Mild pulmonary congestion. Signed: Bulmaro Hernandez VerifiedDate/ Time: 05/17/2018 12:30:42 Reading Location: [facility] Radiology Reading Room POCT-GLUCOSE [id number] 12:18:00 Test Item Value Reference Range Comments POC-GLUCOSE METER (BEAKER) 164 mg/dL 70-110 TESTED AT [place] [address] [address] (test jbim=5164) [facility] [address] URINE [id number] 09:47:00 Test Item Value Reference Range Comments CULTURE (BEAKER) (test jpvw=0853) No growth POCT-GLUCOSE [id number] 06:00:00 Test Item Value Reference Range Comments POC-GLUCOSE METER (BEAKER) 206 mg/dL 70-110 [address] (test lkrp=9421) [facility] [address] [id number] 04:31:00 Test Item Value Reference Range Comments FERRITIN (BEAKER) (test qqyv=819) 327 ng/mL 5-275 CALCIUM, [id number] 04:23:00 Test Item Value Reference Range Comments CALCIUM IONIZED (BEAKER) (test vqxt=168) 0.94 mmol/L 1.12-1.27 PH, BLOOD (BEAKER) (test agrz=1780) 7.39 COMPREHENSIVE METABOLIC [id number] 04:21:00 Test Item Value Reference Range Comments TOTAL PROTEIN (BEAKER) 5.9 gm/dL 6.0-8.3 (test plcw=037) ALBUMIN (BEAKER) (test 2.8 g/dL 3.5-5.0 wjkr=8663) ALKALINE PHOSPHATASE 241 U/L 40-150 (BEAKER) (test ceny=548) BILIRUBIN TOTAL (BEAKER) 1.5 mg/dL 0.2-1.2 (test zaif=958) SODIUM (BEAKER) (test 143 meq/L 136-145 svhl=452) POTASSIUM (BEAKER) (test 4.7 meq/L 3.5-5.1 chej=120) CHLORIDE (BEAKER) (test 107 meq/L 98-107 ddor=001) CO2 (BEAKER) (test 20 meq/L 22-29 amvy=701) BLOOD UREA NITROGEN 82 mg/dL 7-21 (BEAKER) (test jqkp=652) CREATININE (BEAKER) (test 6.80 mg/dL 0.57-1.25 cmif=672) GLUCOSE RANDOM (BEAKER) 201 mg/dL 70-105 (test offl=035) CALCIUM (BEAKER) (test 7.7 mg/dL 8.4-10.2 rene=297) AST (SGOT) (BEAKER) (test 57 U/L 5-34 skqj=257) ALT (SGPT) (BEAKER) (test 150 U/L 6-55 zfqt=145) EGFR (BEAKER) (test 6 mL/min/1.73 sq m ESTIMATED GFR IS NOT aqbc=5880) ACCURATE CREATININE CLEARANCE IN PREDICTING GLOMERULAR FILTRATION RATE. ESTIMATED GFR IS NOT APPLICABLE FOR DIALYSIS PATIENTS. [id number] 04:18:00 Test Item Value Reference Range Comments PHOSPHORUS (BEAKER) (test reze=149) 6.0 mg/dL 2.3-4.7 [id number] 04:18:00 Test Item Value Reference Range Comments MAGNESIUM (BEAKER) (test vjpw=349) 2.6 mg/dL 1.6-2.6 HEPATIC FUNCTION [id number] 04:18:00 Test Item Value Reference Range Comments TOTAL PROTEIN (BEAKER) (test gvjr=918) 5.9 gm/dL 6.0-8.3 ALBUMIN (BEAKER) (test rldz=0897) 2.8 g/dL 3.5-5.0 BILIRUBIN TOTAL (BEAKER) (test pfey=567) 1.5 mg/dL 0.2-1.2 BILIRUBIN DIRECT (BEAKER) (test xwqi=465) 1.2 mg/dL 0.1-0.5 ALKALINE PHOSPHATASE (BEAKER) (test dule=980) 241 U/L 40-150 AST (SGOT) (BEAKER) (test nevt=742) 57 U/L 5-34 ALT (SGPT) (BEAKER) (test rodg=622) 150 U/L 6-55 IRON, TIBC, % SAT. (WITHOUT FERRITIN)2018-05-17 04:18:00 Test Item Value Reference Range Comments IRON (BEAKER) (test avnx=499) 61 ug/dL 40-160 TOTAL IRON BINDING CAPACITY (BEAKER) (test 153 ug/dL 250-450 egzb=599) IRON % SATURATION (2) (BEAKER) (test etug=5692) 40 % 20-55 PROTHROMBIN [id number] 04:15:00 Test Item Value Reference Range Comments PROTIME (BEAKER) (test vqee=394) 14.9 seconds 11.7-14.7 INR (BEAKER) (test hxgk=184) 1.2 <=5.9 RECOMMENDED COUMADIN/WARFARIN INR THERAPY RANGESSTANDARD DOSE: 2.0 - 3.0 Includes: PROPHYLAXIS forvenous thrombosis, systemic embolization; TREATMENT for venous thrombosis and/or pulmonary embolus.HIGH RISK: Target INR is 2.5-3.5 for patients with mechanical heart valves.BLOOD GAS, [id number] 04:02:00 Test Item Value Reference Range Comments PH ARTERIAL (BEAKER) (test qhtm=101) 7.39 7.35-7.45 PCO2 ARTERIAL (BEAKER) (test tupa=046) 39 mmHg 35-45 PO2 ARTERIAL (BEAKER) (test ipjl=888) 185 mmHg 80-90 O2 SATURATION ARTERIAL (BEAKER) (test qmoi=025) 99.3 % 96.0-97.0 HCO3 ARTERIAL (BEAKER) (test etxf=802) 23 mmol/L 21-29 BASE EXCESS ARTERIAL (BEAKER) (test sokm=966) -1.6 mmol/L -2.0-3.0 PATIENT TEMPERATURE (BEAKER) (test hqef=4866) 37.0 C FIO2 (BEAKER) (test iwcu=3543) 30.0 % CBC W/PLT COUNT & AUTO [id number] 03:51:00 Test Item Value Reference Range Comments WHITE BLOOD CELL COUNT (BEAKER) (test smsr=984) 12.6 K/ L 3.5-10.5 RED BLOOD CELL COUNT (BEAKER) (test mqjc=868) 3.24 M/ L 3.93-5.22 HEMOGLOBIN (BEAKER) (test gpor=057) 8.2 GM/DL 11.2-15.7 HEMATOCRIT (BEAKER) (test eqkw=041) 26.1 % 34.1-44.9 MEAN CORPUSCULAR VOLUME (BEAKER) (test wosr=650) 80.6 fL 79.4-94.8 MEAN CORPUSCULAR HEMOGLOBIN (BEAKER) (test 25.3 pg 25.6-32.2 tifj=500) MEAN CORPUSCULAR HEMOGLOBIN CONC (BEAKER) (test 31.4 GM/DL 32.2-35.5 mrnr=673) RED CELL DISTRIBUTION WIDTH (BEAKER) (test 16.5 % 11.7-14.4 qeid=525) PLATELET COUNT (BEAKER) (test hove=430) 99 K/CU MM 150-450 MEAN PLATELET VOLUME (BEAKER) (test sxhh=740) 12.1 fL 9.4-12.3 NUCLEATED RED BLOOD CELLS (BEAKER) (test 0 /100 WBC 0-0 damv=346) NEUTROPHILS RELATIVE PERCENT (BEAKER) (test 90 % phck=876) LYMPHOCYTES RELATIVE PERCENT (BEAKER) (test 6 % jxoz=860) MONOCYTES RELATIVE PERCENT (BEAKER) (test 3 % llpn=356) EOSINOPHILS RELATIVE PERCENT (BEAKER) (test 0 % wmse=430) BASOPHILS RELATIVE PERCENT (BEAKER) (test 0 % qeaj=437) NEUTROPHILS ABSOLUTE COUNT (BEAKER) (test 11.34 K/ L 1.56-6.13 omxz=063) LYMPHOCYTES ABSOLUTE COUNT (BEAKER) (test 0.80 K/ L 1.18-3.74 qhas=735) MONOCYTES ABSOLUTE COUNT (BEAKER) (test ljnj=388) 0.38 K/ L 0.24-0.36 EOSINOPHILS ABSOLUTE COUNT (BEAKER) (test 0.00 K/ L 0.04-0.36 rrki=114) BASOPHILS ABSOLUTE COUNT (BEAKER) (test aval=936) 0.04 K/ L 0.01-0.08 IMMATURE GRANULOCYTES-RELATIVE PERCENT (BEAKER) 0 % 0-1 (test kjei=0082) POCT-GLUCOSE [id number] 23:37:00 Test Item Value Reference Range Comments POC-GLUCOSE METER (BEAKER) 191 mg/dL 70-110 TESTED AT [address] (test sgey=2139) [place] [address] BLOOD GAS, [id number] 19:42:00 Test Item Value Reference Range Comments PH ARTERIAL (BEAKER) (test abdt=463) 7.41 7.35-7.45 PCO2 ARTERIAL (BEAKER) (test ytkm=259) 38 mmHg 35-45 PO2 ARTERIAL (BEAKER) (test tiaa=567) 379 mmHg 80-90 O2 SATURATION ARTERIAL (BEAKER) (test vfzh=461) 99.8 % 96.0-97.0 HCO3 ARTERIAL (BEAKER) (test xhgb=338) 23 mmol/L 21-29 BASE EXCESS ARTERIAL (BEAKER) (test jvax=334) -0.7 mmol/L -2.0-3.0 PATIENT TEMPERATURE (BEAKER) (test ejbc=0884) 38.5 C FIO2 (BEAKER) (test xbbd=1039) 30.0 % POCT-GLUCOSE [id number] 18:42:00 Test Item Value Reference Range Comments POC-GLUCOSE METER (BEAKER) 153 mg/dL 70-110 TESTED AT [address] (test gybf=7372) [place] [id number] RAD, CHEST, 1 VIEW, NON [id number] 16:41:00Reason for exam:-> IntubatedShould this be performed at the bedside?->YesFINAL REPORT Chest one view compared to May 14, 2018 Discussion: Support tubes and right IJ line in place. Lungs clear. No effusion or pneumothorax. Signed: Bulmaro Hernandez MDReportVerified Date/Time: 05/16/2018 16:41:27 Reading Location: [address] Consult Reading Room MISCELLANEOUS LAB [id number] 14:49:00 Test Item Value Reference Range Comments SCAN RESULT (test nanr=[id number]) Result comments: KLEBSIELLA PNEUMONIAE DETECTED KPC (a carbapenamase gene) not detected First line therapy: meropenem. De-escalate based on susceptibilities This test does not evaluate for ESBL Other organisms and resistance markers not contained in this PCR panel cannot be excluded and follow-up of traditional culture results is required. This sample was tested at the [facility] Clinical Microbiology Laboratory using the [employer] Blood Culture ID Panel. This test is FDA cleared for in vitro diagnostic use and has been verified and approved by the [facility] Clinical Microbiology laboratory for clinical use. 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 MEDICATIONS: synthyroid, toprol XL, ultram TECHNICAL SUMMARY: This is a digital video EEG recorded with 32 input channels reviewed with bipolar and referential montages using the modified combinatorial system nomenclature. DESCRIPTION OF RECORD: The background consists of continuous low to moderate polymorphic 1-2 Hz delta activity. No posterior dominant rhythm is seen. Throughout the recording there is presence of 2-3 Hz generalized epileptiform discharges (GEPs) which are periodic andposterior predominant occurring in semi-rhythmic runs lasting up to 4 seconds appearing as di- and triphasic sharp waves. No stage II sleep architecture is recorded. HV: Hyperventilation was not performed. PHOTIC STIMULATION: Flash stimulation was not done. IMPRESSION: Abnormal EEG 1. Absent occipital dominant rhythm and diffusely slow background 2. Presence of 2-3 Hz generalized periodic epileptiform discharges with di - and triphasic morphology. CLINICAL CORRELATION: Generalized periodic epileptiform discharges seen in this recording may represent the patient's ictal -interictal continuum and may be associated with metabolic encephalopathy. Consider repeating the study or longer EEG monitoring. No electrographic seizures were recorded. Gurvinder Henry MD Neurophysiology Fellow I have reviewed the electroencephalogram and this report and agree with its interpretation. Kera Culp MD Neurophysiology Attending TROPONIN [id number] 14:02:00 Test Item Value Reference Range Comments TROPONIN I (BEAKER) (test xbxh=769) 0.51 ng/mL 0.00-0.03 Troponin I (TnI) levels must be interpreted [...] failure, acidosis, acute neurological disease, and persistent tachyarrhythmia.Call [id number] METABOLIC [id number] 13:37:00 Test Item Value Reference Range Comments SODIUM (BEAKER) (test 142 meq/L 136-145 qkcu=590) POTASSIUM (BEAKER) (test 4.3 meq/L 3.5-5.1 mxuu=290) CHLORIDE (BEAKER) (test 107 meq/L 98-107 jlex=667) CO2 (BEAKER) (test 21 meq/L 22-29 qfgt=573) BLOOD UREA NITROGEN 59 mg/dL 7-21 (BEAKER) (test jnyy=919) CREATININE (BEAKER) (test 5.64 mg/dL 0.57-1.25 ajgu=087) GLUCOSE RANDOM (BEAKER) 153 mg/dL 70-105 (test kpyn=518) CALCIUM (BEAKER) (test 7.7 mg/dL 8.4-10.2 nssf=523) EGFR (BEAKER) (test 8 mL/min/1.73 sq m ESTIMATED GFR IS NOT wwvk=[id number]) ACCURATE CREATININE CLEARANCE IN PREDICTING GLOMERULAR FILTRATION RATE. ESTIMATED GFR IS NOT APPLICABLE FOR DIALYSIS PATIENTS. Call [id number] METABOLIC [id number] 12:58:00 Test Item Value Reference Range Comments SODIUM (BEAKER) (test 141 meq/L 136-145 qnhv=048) POTASSIUM (BEAKER) (test 4.2 meq/L 3.5-5.1 spmh=788) CHLORIDE (BEAKER) (test 106 meq/L 98-107 wrdr=521) CO2 (BEAKER) (test 22 meq/L 22-29 nyyq=579) BLOOD UREA NITROGEN 59 mg/dL 7-21 (BEAKER) (test wdat=785) CREATININE (BEAKER) (test 5.63 mg/dL 0.57-1.25 miss=049) GLUCOSE RANDOM (BEAKER) 163 mg/dL 70-105 (test erzg=265) CALCIUM (BEAKER) (test 7.7 mg/dL 8.4-10.2 foeh=378) EGFR (BEAKER) (test 8 mL/min/1.73 sq m ESTIMATED GFR IS NOT zlug=9287) ACCURATE CREATININE CLEARANCE IN PREDICTING GLOMERULAR FILTRATION RATE. ESTIMATED GFR IS NOT APPLICABLE FOR DIALYSIS PATIENTS. [id number] 12:43:00 Test Item Value Reference Range Comments PHOSPHORUS (BEAKER) (test tgei=453) 4.7 mg/dL 2.3-4.7 [id number] 12:43:00 Test Item Value Reference Range Comments MAGNESIUM (BEAKER) (test pbep=782) 2.6 mg/dL 1.6-2.6 POCT-GLUCOSE [id number] 11:52:00 Test Item Value Reference Range Comments POC-GLUCOSE METER (BEAKER) 169 mg/dL 70-110 TESTED AT [facility] [address] [facility] (test pmtq=6953) [facility] [address] CBC W/PLT COUNT & AUTO [id number] 08:06:00 Test Item Value Reference Range Comments WHITE BLOOD CELL COUNT (BEAKER) (test atfm=177) 17.5 K/ L 3.5-10.5 RED BLOOD CELL COUNT (BEAKER) (test garl=661) 3.36 M/ L 3.93-5.22 HEMOGLOBIN (BEAKER) (test jrup=851) 8.6 GM/DL 11.2-15.7 HEMATOCRIT (BEAKER) (test ulhb=401) 26.7 % 34.1-44.9 MEAN CORPUSCULAR VOLUME (BEAKER) (test csdo=371) 79.5 fL 79.4-94.8 MEAN CORPUSCULAR HEMOGLOBIN (BEAKER) (test 25.6 pg 25.6-32.2 pqio=110) MEAN CORPUSCULAR HEMOGLOBIN CONC (BEAKER) (test 32.2 GM/DL 32.2-35.5 zgmm=307) RED CELL DISTRIBUTION WIDTH (BEAKER) (test 16.4 % 11.7-14.4 zsur=648) PLATELET COUNT (BEAKER) (test wgdr=957) 95 K/CU MM 150-450 MEAN PLATELET VOLUME (BEAKER) (test pear=664) 11.1 fL 9.4-12.3 NUCLEATED RED BLOOD CELLS (BEAKER) (test 0 /100 WBC 0-0 kbux=081) (CELLAVISION MANUAL DIFF)2018-05-16 08:06:00 Test Item Value Reference Range Comments NEUTROPHILS - REL (CELLAVISION)(BEAKER) (test 80 % qces=5154) LYMPHOCYTES - REL (CELLAVISION)(BEAKER) (test 3 % terx=1757) MONOCYTES - REL (CELLAVISION)(BEAKER) (test 1 % hmsw=5823) BANDS - REL (CELLAVISION)(BEAKER) (test 16 % 0-10 nzmm=6749) NEUTROPHILS - ABS (CELLAVISION)(BEAKER) (test 14.00 K/ul 1.56-6.13 swkq=8056) LYMPHOCYTES - ABS (CELLAVISION)(BEAKER) (test 0.53 K/ul 1.18-3.74 kamm=8284) MONOCYTES - ABS (CELLAVISION)(BEAKER) (test 0.18 K/uL 0.24-0.36 kubz=1201) BANDS - ABS (CELLAVISION)(BEAKER) (test 2.80 K/uL 0.00-0.80 qulc=8993) TOTAL COUNTED (BEAKER) (test dbhk=7976) 100 SMUDGE CELLS (BEAKER) (test dsqy=4431) Present GIANT PLATELETS (BEAKER) (test dkwm=119) Present ANISOCYTOSIS (BEAKER) (test vndb=493) 1+ few POIKILOCYTES (BEAKER) (test acdv=894) 2+ moderate OVALOCYTES (BEAKER) (test fhjh=156) 1+ few PLATELET CONCENTRATION (CELLAVISION)(BEAKER) Decreased (test peys=7156) Received comment: User comments: Slide comments:POCT-GLUCOSE [id number] 05: 39:00 Test Item Value Reference Range Comments POC-GLUCOSE METER (BEAKER) 220 mg/dL 70-110 TESTED AT [facility] [address] [facility] (test qfrt=6682) [facility] [address] BLOOD GAS, [id number] 05:35:00 Test Item Value Reference Range Comments PH ARTERIAL (BEAKER) (test veaj=402) 7.38 7.35-7.45 PCO2 ARTERIAL (BEAKER) (test hvqn=933) 40 mm Hg 35-45 PO2 ARTERIAL (BEAKER) (test wdgv=974) 163 mm Hg 80-90 O2 SATURATION ARTERIAL (BEAKER) (test eicd=145) 99.1 % 96.0-97.0 HCO3 ARTERIAL (BEAKER) (test lyly=559) 23 mmol/L 21-29 BASE EXCESS ARTERIAL (BEAKER) (test xlfk=969) -2.0 mmol/L -2.0-3.0 PATIENT TEMPERATURE (BEAKER) (test tzuy=0232) 37.0 FIO2 (BEAKER) (test qlmo=6983) 40 CALCIUM, [id number] 04:36:00 Test Item Value Reference Range Comments CALCIUM IONIZED (BEAKER) (test tuir=907) 0.92 mmol/L 1.12-1.27 PH, BLOOD (BEAKER) (test tqtc=4486) 7.38 BLOOD GAS, [id number] 04:35:00 Test Item Value Reference Range Comments PH ARTERIAL (BEAKER) (test tnrg=587) 7.38 7.35-7.45 PCO2 ARTERIAL (BEAKER) (test vwrr=712) 40 mmHg 35-45 PO2 ARTERIAL (BEAKER) (test prji=435) 163 mmHg 80-90 O2 SATURATION ARTERIAL (BEAKER) (test nrwo=233) 99.1 % 96.0-97.0 HCO3 ARTERIAL (BEAKER) (test ixgl=089) 23 mmol/L 21-29 BASE EXCESS ARTERIAL (BEAKER) (test cikb=096) -2.0 mmol/L -2.0-3.0 PATIENT TEMPERATURE (BEAKER) (test unlm=0090) 37.0 C FIO2 (BEAKER) (test nbym=1863) 40.0 % TROPONIN [id number] 04:35:00 Test Item Value Reference Range Comments TROPONIN I (BEAKER) (test qscm=644) 0.57 ng/mL 0.00-0.03 Troponin I (TnI) levels must be interpreted [...] failure, acidosis, acute neurological disease, and persistent tachyarrhythmia.COMPREHENSIVE METABOLIC [id number] 04:32:00 Test Item Value Reference Range Comments TOTAL PROTEIN (BEAKER) 5.9 gm/dL 6.0-8.3 (test vyaq=214) ALBUMIN (BEAKER) (test 2.9 g/dL 3.5-5.0 ptwx=6810) ALKALINE PHOSPHATASE 257 U/L 40-150 (BEAKER) (test gfrx=729) BILIRUBIN TOTAL (BEAKER) 2.6 mg/dL 0.2-1.2 (test eqxe=314) SODIUM (BEAKER) (test 140 meq/L 136-145 qpzs=789) POTASSIUM (BEAKER) (test 4.2 meq/L 3.5-5.1 sjol=166) CHLORIDE (BEAKER) (test 106 meq/L 98-107 oagj=098) CO2 (BEAKER) (test 22 meq/L 22-29 hoke=015) BLOOD UREA NITROGEN 48 mg/dL 7-21 (BEAKER) (test rmrv=668) CREATININE (BEAKER) (test 5.06 mg/dL 0.57-1.25 chfx=299) GLUCOSE RANDOM (BEAKER) 204 mg/dL 70-105 (test ciul=440) CALCIUM (BEAKER) (test 7.6 mg/dL 8.4-10.2 pwvz=678) AST (SGOT) (BEAKER) (test 106 U/L 5-34 apfm=745) ALT (SGPT) (BEAKER) (test 207 U/L 6-55 httq=250) EGFR (BEAKER) (test 9 mL/min/1.73 sq m ESTIMATED GFR IS NOT uzlj=2335) ACCURATE CREATININE CLEARANCE IN PREDICTING GLOMERULAR FILTRATION RATE. ESTIMATED GFR IS NOT APPLICABLE FOR DIALYSIS PATIENTS. Specimen slightly [id number] 04:18:00 Test Item Value Reference Range Comments FIBRINOGEN LEVEL (BEAKER) (test wejk=622) 712 mg/dl 225-434 [id number] 04:16:00 Test Item Value Reference Range Comments PHOSPHORUS (BEAKER) (test jxqb=410) 4.3 mg/dL 2.3-4.7 [id number] 04:16:00 Test Item Value Reference Range Comments MAGNESIUM (BEAKER) (test njtm=306) 2.4 mg/dL 1.6-2.6 HEPATIC FUNCTION [id number] 04:16:00 Test Item Value Reference Range Comments TOTAL PROTEIN (BEAKER) (test vytq=397) 5.9 gm/dL 6.0-8.3 ALBUMIN (BEAKER) (test nddv=1061) 2.9 g/dL 3.5-5.0 BILIRUBIN TOTAL (BEAKER) (test eaun=453) 2.6 mg/dL 0.2-1.2 BILIRUBIN DIRECT (BEAKER) (test dnih=402) 2.0 mg/dL 0.1-0.5 ALKALINE PHOSPHATASE (BEAKER) (test khrk=242) 257 U/L 40-150 AST (SGOT) (BEAKER) (test mchc=250) 106 U/L 5-34 ALT (SGPT) (BEAKER) (test wsbc=126) 207 U/L 6-55 Specimen slightly ictericPROTHROMBIN [id number] 04:13:00 Test Item Value Reference Range Comments PROTIME (BEAKER) (test wzaw=413) 17.7 seconds 11.7-14.7 INR (BEAKER) (test bwuq=544) 1.5 <=5.9 RECOMMENDED COUMADIN/WARFARIN INR THERAPY RANGESSTANDARD DOSE: 2.0 - 3.0 Includes: PROPHYLAXIS forvenous thrombosis, systemic embolization; TREATMENT for venous thrombosis and/or pulmonary embolus.HIGH RISK: Target INR is 2.5-3.5 for patients with mechanical heart valves.LACTIC ACID, ARTERIAL, WHOLE [id number] 04:09:00 Test Item Value Reference Range Comments LACTATE BLOOD ARTERIAL (2) (BEAKER) (test 1.6 mmol/L 0.5-2.2 bukr=6607) Effective 03/10/2016: Units/Reference Range ChangeNew: 0.5-2.2 mmol/L Previous: 5 -20 mg/dLTROPONIN [id number] 02:37:00 Test Item Value Reference Range Comments TROPONIN I (BEAKER) (test bfib=091) 0.57 ng/mL 0.00-0.03 Troponin I (TnI) levels must be interpreted [...] failure, acidosis, acute neurological disease, and persistent tachyarrhythmia.B-TYPE NATRIURETIC FACTOR (BNP) 02:20:00 Test Item Value Reference Range Comments B-TYPE NATRIURETIC PEPTIDE (BEAKER) (test 406 pg/mL 0-100 xjxp=055) CREATINE KINASE (CK)2018-05-16 02:15:00 Test Item Value Reference Range Comments CREATINE KINASE TOTAL (BEAKER) (test yphv=485) 684 U/L 29-200 LACTIC ACID, VENOUS, WHOLE [id number] 02:10:00 Test Item Value Reference Range Comments LACTATE BLOOD VENOUS (2) (BEAKER) (test 1.6 mmol/L 0.5-2.2 vlgo=6323) Effective 03/10/2016: Units/Reference Range ChangeNew: 0.5-2.2 mmol/L Previous: 5 -20 mg/dLRAD, ABDOMEN/KUB, 1 VIEW [id number] 01:31:00Reason for exam:->NGT placement verificationFINAL REPORT Abdomen one view Comparison: Comparison is made with CT abdomen and pelvis 05/15/2018. Reason for exam: NGT placement verification Findings/impression: Supine view ofthe abdomen demonstrates a feeding tube in stomach. There is no bowel obstruction. There is a pigtail catheter overlying the right midabdomen. There are dense atherosclerotic calcifications of the aorta. There is an expansile lucent lesion in the T12 vertebral body extending into the right posterior 12th rib noted on recent abdominal CT. Signed: Rashi Hdz MDReport Verified Date/Time : 05/16/2018 01:31:39 Reading Location: [address] Transitional Reading Room POCT -GLUCOSE [id number] 00:20:00 Test Item Value Reference Range Comments POC-GLUCOSE METER (BEAKER) 193 mg/dL 70-110 TESTED AT [address] (test chkz=5012) [facility] [address] BLOOD GAS, [id number] 00:05:00 Test Item Value Reference Range Comments PH ARTERIAL (BEAKER) (test ntlq=056) 7.37 7.35-7.45 PCO2 ARTERIAL (BEAKER) (test iznl=724) 42 mmHg 35-45 PO2 ARTERIAL (BEAKER) (test jnda=022) 134 mmHg 80-90 O2 SATURATION ARTERIAL (BEAKER) (test ofiy=618) 98.6 % 96.0-97.0 HCO3 ARTERIAL (BEAKER) (test lkxy=754) 23 mmol/L 21-29 BASE EXCESS ARTERIAL (BEAKER) (test ryyc=818) -1.9 mmol/L -2.0-3.0 PATIENT TEMPERATURE (BEAKER) (test ywrn=2142) 37.0 C FIO2 (BEAKER) (test ross=8259) 40.0 % CREATININE, RANDOM [id number] 20:31:00 Test Item Value Reference Range Comments CREATININE URINE (BEAKER) (test pjzq=212) 50.3 mg/dL Reference Range: No NormalsSODIUM, RANDOM [id number] 20:31:00 Test Item Value Reference Range Comments SODIUM URINE (BEAKER) (test stnp=400) 122 meq/L Reference Range: No NormalsTROPONIN [id number] 18:16:00 Test Item Value Reference Range Comments TROPONIN I (BEAKER) (test pjel=817) 0.57 ng/mL 0.00-0.03 Troponin I (TnI) levels must be interpreted [...] failure, acidosis, acute neurological disease, and persistent tachyarrhythmia.LACTIC ACID, ARTERIAL, WHOLE [id number] 17:58:00 Test Item Value Reference Range Comments LACTATE BLOOD ARTERIAL (2) (BEAKER) (test 2.8 mmol/L 0.5-2.2 nwgz=1837) Effective 03/10/2016: Units/Reference Range ChangeNew: 0.5-2.2 mmol/L Previous: 5 -20 mg/dLSpecimen slightly ictericEOSINOPHIL SMEAR, [id number] 17:50:00 Test Item Value Reference Range Comments EOSINOPHIL SMEAR, URINE (BEAKER) (test No EOS seen No EOS seen elif=7835) BLOOD GAS, [id number] 17:34:00 Test Item Value Reference Range Comments PH ARTERIAL (BEAKER) (test mnbn=377) 7.48 7.35-7.45 PCO2 ARTERIAL (BEAKER) (test fewf=288) 26 mmHg 35-45 PO2 ARTERIAL (BEAKER) (test kzcb=836) 239 mmHg 80-90 O2 SATURATION ARTERIAL (BEAKER) (test aytg=637) 99.6 % 96.0-97.0 HCO3 ARTERIAL (BEAKER) (test zfdl=623) 19 mmol/L 21-29 BASE EXCESS ARTERIAL (BEAKER) (test ewjs=161) -3.4 mmol/L -2.0-3.0 PATIENT TEMPERATURE (BEAKER) (test msjg=7411) 37.5 C FIO2 (BEAKER) (test vhcu=2704) 40.0 % POCT-GLUCOSE [id number] 17:27:00 Test Item Value Reference Range Comments POC-GLUCOSE METER (BEAKER) 144 mg/dL 70-110 TESTED AT [address] (test wjob=3406) [facility] [address] [id number] 16:37:00 Test Item Value Reference Range Comments HAPTOGLOBIN (BEAKER) (test oomy=907) 213 mg/dL 14-258 B-TYPE NATRIURETIC FACTOR (BNP)2018-05-15 16:34:00 Test Item Value Reference Range Comments B-TYPE NATRIURETIC PEPTIDE (BEAKER) (test 938 pg/mL 0-100 zahk=780) BASIC METABOLIC [id number] 16:33:00 Test Item Value Reference Range Comments SODIUM (BEAKER) (test 142 meq/L 136-145 nkaf=997) POTASSIUM (BEAKER) (test 4.0 meq/L 3.5-5.1 ntur=840) CHLORIDE (BEAKER) (test 109 meq/L 98-107 yjwg=806) CO2 (BEAKER) (test 17 meq/L 22-29 zzlp=457) BLOOD UREA NITROGEN 39 mg/dL 7-21 (BEAKER) (test fefu=510) CREATININE (BEAKER) (test 3.99 mg/dL 0.57-1.25 hzje=224) GLUCOSE RANDOM (BEAKER) 167 mg/dL 70-105 (test jtvq=719) CALCIUM (BEAKER) (test 8.0 mg/dL 8.4-10.2 tbot=281) EGFR (BEAKER) (test 12 mL/min/1.73 sq m ESTIMATED GFR IS NOT thqs=0410) ACCURATE CREATININE CLEARANCE IN PREDICTING GLOMERULAR FILTRATION RATE. ESTIMATED GFR IS NOT APPLICABLE FOR DIALYSIS PATIENTS. Call [id number] slightly ictericURINALYSIS W/ [id number] 16: 33:00 Test Item Value Reference Range Comments COLOR (BEAKER) (test lugd=530) Brown CLARITY (BEAKER) (test wppl=661) Cloudy SPECIFIC GRAVITY UA (BEAKER) (test bqpd=664) 1.018 1.001-1.035 PH UA (BEAKER) (test geit=599) 6.0 5.0-8.0 PROTEIN UA (BEAKER) (test uruf=255) 600 mg/dL Negative GLUCOSE UA (BEAKER) (test kije=259) 150 mg/dL Negative KETONES UA (BEAKER) (test jkgx=658) Trace Negative BILIRUBIN UA (BEAKER) (test hpfm=550) Positive Negative BLOOD UA (BEAKER) (test rqfd=512) Moderate Negative NITRITE UA (BEAKER) (test zhje=954) Negative Negative LEUKOCYTE ESTERASE UA (BEAKER) (test mrmr=624) Small Negative UROBILINOGEN UA (BEAKER) (test bklj=993) 6.0 mg/dL 0.2-1.0 RBC UA (BEAKER) (test tbae=931) 0 /HPF WBC UA (BEAKER) (test sjna=023) 0 /HPF SOURCE(BEAKER) (test ambl=8026) Urine, Voided LACTATE DEHYDROGENASE (LDH)2018-05-15 16:30:00 Test Item Value Reference Range Comments LACTATE DEHYDROGENASE (BEAKER) (test tygl=784) 292 U/L 125-220 Call [id number], RANDOM [id number] 16:29:00 Test Item Value Reference Range Comments PROTEIN, URINE (BEAKER) (test laxg=8873) 1313 mg/dL 0-14 HEMOGLOBIN AND [id number] 16:11:00 Test Item Value Reference Range Comments HEMOGLOBIN (BEAKER) (test zdgr=659) 9.3 GM/DL 11.2-15.7 HEMATOCRIT (BEAKER) (test ikpg=957) 29.0 % 34.1-44.9 CBC W/PLT COUNT & AUTO [id number] 13:34:00 Test Item Value Reference Range Comments WHITE BLOOD CELL COUNT (BEAKER) (test tkiy=263) 25.0 K/ L 3.5-10.5 RED BLOOD CELL COUNT (BEAKER) (test hvcx=070) 3.75 M/ L 3.93-5.22 HEMOGLOBIN (BEAKER) (test ufwl=463) 9.5 GM/DL 11.2-15.7 HEMATOCRIT (BEAKER) (test axxw=205) 29.8 % 34.1-44.9 MEAN CORPUSCULAR VOLUME (BEAKER) (test jivt=564) 79.5 fL 79.4-94.8 MEAN CORPUSCULAR HEMOGLOBIN (BEAKER) (test 25.3 pg 25.6-32.2 ducg=148) MEAN CORPUSCULAR HEMOGLOBIN CONC (BEAKER) (test 31.9 GM/DL 32.2-35.5 piig=495) RED CELL DISTRIBUTION WIDTH (BEAKER) (test 16.0 % 11.7-14.4 qrmx=127) PLATELET COUNT (BEAKER) (test bptk=166) 134 K/CU MM 150-450 MEAN PLATELET VOLUME (BEAKER) (test iycy=336) 11.7 fL 9.4-12.3 NUCLEATED RED BLOOD CELLS (BEAKER) (test 0 /100 WBC 0-0 itjr=612) (CELLAVISION MANUAL DIFF)2018-05-15 13:34:00 Test Item Value Reference Range Comments NEUTROPHILS - REL (CELLAVISION)(BEAKER) (test 63 % audh=9390) LYMPHOCYTES - REL (CELLAVISION)(BEAKER) (test 7 % aniw=7920) MONOCYTES - REL (CELLAVISION)(BEAKER) (test 7 % hdnw=6561) BANDS - REL (CELLAVISION)(BEAKER) (test 23 % 0-10 qstb=6335) NEUTROPHILS - ABS (CELLAVISION)(BEAKER) (test 15.75 K/ul 1.56-6.13 besy=9648) LYMPHOCYTES - ABS (CELLAVISION)(BEAKER) (test 1.75 K/ul 1.18-3.74 vyaz=5184) MONOCYTES - ABS (CELLAVISION)(BEAKER) (test 1.75 K/uL 0.24-0.36 kuwq=6680) BANDS - ABS (CELLAVISION)(BEAKER) (test 5.75 K/uL 0.00-0.80 zjzo=0812) TOTAL COUNTED (BEAKER) (test fwwl=2860) 100 WBC MORPHOLOGY (BEAKER) (test uslw=047) Normal PLT MORPHOLOGY (BEAKER) (test kxvp=839) Normal POLYCHROMATOPHILLIC RBCS(BEAKER) (test tqer=764) 1+ few OVALOCYTES (BEAKER) (test fmzx=604) 1+ few SOPHIA CELLS (BEAKER) (test ilxn=559) 1+ few ARTIFACT (CELLAVISION)(BEAKER) (test muis=9073) Present PLATELET CONCENTRATION (CELLAVISION)(BEAKER) Decreased (test gxhz=2562) Received comment: User comments: Slide comments:TROPONIN [id number] 12:26:00 Test Item Value Reference Range Comments TROPONIN I (BEAKER) (test oxuq=260) 0.49 ng/mL 0.00-0.03 Troponin I (TnI) levels must be interpreted [...] failure, acidosis, acute neurological disease, and persistent tachyarrhythmia.BASIC METABOLIC [id number] 12:24:00 Test Item Value Reference Range Comments SODIUM (BEAKER) (test 141 meq/L 136-145 fcfv=746) POTASSIUM (BEAKER) (test 3.9 meq/L 3.5-5.1 owim=846) CHLORIDE (BEAKER) (test 106 meq/L 98-107 gabb=227) CO2 (BEAKER) (test 17 meq/L 22-29 amts=101) BLOOD UREA NITROGEN 36 mg/dL 7-21 (BEAKER) (test shrw=948) CREATININE (BEAKER) (test 3.73 mg/dL 0.57-1.25 yrcz=635) GLUCOSE RANDOM (BEAKER) 144 mg/dL 70-105 (test lzco=723) CALCIUM (BEAKER) (test 8.0 mg/dL 8.4-10.2 fwup=681) EGFR (BEAKER) (test 12 mL/min/1.73 sq m ESTIMATED GFR IS NOT guoh=4366) ACCURATE CREATININE CLEARANCE IN PREDICTING GLOMERULAR FILTRATION RATE. ESTIMATED GFR IS NOT APPLICABLE FOR DIALYSIS PATIENTS. Specimen slightly ictericCREATINE KINASE (CK), TOTAL AND [id number] 12:20:00 Test Item Value Reference Range Comments CREATINE KINASE TOTAL (BEAKER) (test exms=567) 869 U/L 29-200 CREATINE KINASE-MB (BEAKER) (test dukc=348) 7.0 ng/mL 0.0-6.6 CREATINE KINASE-MB INDEX (BEAKER) (test wwcp=534) 0.8 % CK-MB Reference Range:<6.7 Normal6.7-10.0 Borderline>10.0 [id number] 12:13:00 Test Item Value Reference Range Comments PHOSPHORUS (BEAKER) (test zvvo=190) 4.0 mg/dL 2.3-4.7 [id number] 12:13:00 Test Item Value Reference Range Comments MAGNESIUM (BEAKER) (test knpv=490) 2.2 mg/dL 1.6-2.6 CREATININE, RANDOM [id number] 12:10:00 Test Item Value Reference Range Comments CREATININE URINE (BEAKER) (test mlie=473) 138.6 mg/dL Reference Range: No NormalsSODIUM, RANDOM [id number] 12:10:00 Test Item Value Reference Range Comments SODIUM URINE (BEAKER) (test zggk=034) 84 meq/L Reference Range: No NormalsUREA NITROGEN, RANDOM [id number] 12:10:00 Test Item Value Reference Range Comments UREA NITROGEN URINE (BEAKER) (test nzcp=477) 165 mg/dL Reference Range: No NormalsBLOOD GAS, [id number] 12:07:00 Test Item Value Reference Range Comments PH ARTERIAL (BEAKER) (test ujqi=341) 7.39 7.35-7.45 PCO2 ARTERIAL (BEAKER) (test ygxe=107) 30 mmHg 35-45 PO2 ARTERIAL (BEAKER) (test ukgo=957) 230 mmHg 80-90 O2 SATURATION ARTERIAL (BEAKER) (test vymg=134) 99.5 % 96.0-97.0 HCO3 ARTERIAL (BEAKER) (test zwda=634) 18 mmol/L 21-29 BASE EXCESS ARTERIAL (BEAKER) (test phjt=328) -6.4 mmol/L -2.0-3.0 PATIENT TEMPERATURE (BEAKER) (test inqv=1837) 37.0 C FIO2 (BEAKER) (test hjaf=1290) 100.0 % LACTIC ACID, ARTERIAL, WHOLE [id number] 12:07:00 Test Item Value Reference Range Comments LACTATE BLOOD ARTERIAL (2) (BEAKER) (test 6.0 mmol/L 0.5-2.2 ekxy=7924) Effective 03/10/2016: Units/Reference Range ChangeNew: 0.5-2.2 mmol/L Previous: 5 -20 mg/dLSpecimen slightly ictericPOCT-GLUCOSE [id number] 11:53:00 Test Item Value Reference Range Comments POC-GLUCOSE METER (BEAKER) 129 mg/dL 70-110 TESTED AT [facility] [address] [facility] (test bcnm=7757) [facility] [address] POCT-GLUCOSE [id number] 10:23:00 Test Item Value Reference Range Comments POC-GLUCOSE METER (BEAKER) 149 mg/dL 70-110 TESTED AT [facility] [address] [facility] (test fltd=2284) [facility] [address] CBC W/PLT COUNT & AUTO [id number] 10:03:00 Test Item Value Reference Range Comments WHITE BLOOD CELL COUNT (BEAKER) (test tnus=837) 24.7 K/ L 3.5-10.5 RED BLOOD CELL COUNT (BEAKER) (test gghf=229) 3.84 M/ L 3.93-5.22 HEMOGLOBIN (BEAKER) (test lufb=132) 9.5 GM/DL 11.2-15.7 HEMATOCRIT (BEAKER) (test khpp=868) 31.1 % 34.1-44.9 MEAN CORPUSCULAR VOLUME (BEAKER) (test sgyf=537) 81.0 fL 79.4-94.8 MEAN CORPUSCULAR HEMOGLOBIN (BEAKER) (test 24.7 pg 25.6-32.2 svgq=207) MEAN CORPUSCULAR HEMOGLOBIN CONC (BEAKER) (test 30.5 GM/DL 32.2-35.5 ladd=665) RED CELL DISTRIBUTION WIDTH (BEAKER) (test 15.6 % 11.7-14.4 vxlj=183) PLATELET COUNT (BEAKER) (test wpib=525) 207 K/CU MM 150-450 MEAN PLATELET VOLUME (BEAKER) (test svcv=225) 11.1 fL 9.4-12.3 NUCLEATED RED BLOOD CELLS (BEAKER) (test 0 /100 WBC 0-0 dase=329) (CELLAVISION MANUAL DIFF)2018-05-15 10:03:00 Test Item Value Reference Range Comments NEUTROPHILS - REL (CELLAVISION)(BEAKER) (test 72 % eghu=4543) LYMPHOCYTES - REL (CELLAVISION)(BEAKER) (test 3 % kxxg=6688) MONOCYTES - REL (CELLAVISION)(BEAKER) (test 7 % uxyv=8577) BANDS - REL (CELLAVISION)(BEAKER) (test 18 % 0-10 mtml=1576) NEUTROPHILS - ABS (CELLAVISION)(BEAKER) (test 17.78 K/ul 1.56-6.13 cdfr=9103) LYMPHOCYTES - ABS (CELLAVISION)(BEAKER) (test 0.74 K/ul 1.18-3.74 zksj=2241) MONOCYTES - ABS (CELLAVISION)(BEAKER) (test 1.73 K/uL 0.24-0.36 jybe=9982) BANDS - ABS (CELLAVISION)(BEAKER) (test 4.45 K/uL 0.00-0.80 ltuo=0628) TOTAL COUNTED (BEAKER) (test ijap=2148) 100 WBC MORPHOLOGY (BEAKER) (test ngow=242) Normal LARGE PLT(BEAKER) (test whjz=9850) Present POLYCHROMATOPHILLIC RBCS(BEAKER) (test nhrk=720) 1+ few OVALOCYTES (BEAKER) (test bbje=639) 1+ few ARTIFACT (CELLAVISION)(BEAKER) (test bcuw=1580) Present PLATELET CONCENTRATION (CELLAVISION)(BEAKER) Adequate (test jrlx=8389) Received comment: User comments: Slide comments:POCT-GLUCOSE [id number] 08: 58:00 Test Item Value Reference Range Comments POC-GLUCOSE METER (BEAKER) 167 mg/dL 70-110 TESTED AT [address] (test wsso=3399) [facility] [id number] LACTIC ACID, ARTERIAL, WHOLE [id number] 08:50:00 Test Item Value Reference Range Comments LACTATE BLOOD ARTERIAL (2) 8.1 mmol/L 0.5-2.2 Specimen slightly hemolyzed (BEAKER) (test jagi=0017) Effective 03/10/2016: Units/Reference Range ChangeNew: 0.5-2.2 mmol/L Previous: 5 -20 mg/dLSpecimen slightly ictericPROTHROMBIN TIME/[id number] 08:32:00 Test Item Value Reference Range Comments PROTIME (BEAKER) (test chty=099) 22.9 seconds 11.7-14.7 INR (BEAKER) (test jxxw=828) 2.0 <=5.9 RECOMMENDED COUMADIN/WARFARIN INR THERAPY RANGESSTANDARD DOSE: 2.0 - 3.0 Includes: PROPHYLAXIS forvenous thrombosis, systemic embolization; TREATMENT for venous thrombosis and/or pulmonary embolus.HIGH RISK: Target INR is 2.5-3.5 for patients with mechanical heart valves.POCT-GLUCOSE [id number] 08:00:00 Test Item Value Reference Range Comments POC-GLUCOSE METER (BEAKER) 176 mg/dL 70-110 TESTED AT [address] (test msvc=8368) [place] [id number] 07:36:00 Test Item Value Reference Range Comments FERRITIN (BEAKER) (test gzwi=454) 631 ng/mL 5-275 TSH/FREE T4 IF [id number] 07:36:00 Test Item Value Reference Range Comments THYROID STIMULATING HORMONE (BEAKER) (test 0.37 uIU/mL 0.35-4.94 yhsh=574) VITAMIN B12 AND [id number] 07:36:00 Test Item Value Reference Range Comments VITAMIN B12 (BEAKER) (test ezke=587) 839 pg/mL 213-816 FOLATE (BEAKER) (test xnyx=677) 6.8 ng/mL >=7.0 TROPONIN [id number] 07:11:00 Test Item Value Reference Range Comments TROPONIN I (BEAKER) (test hlpf=420) 0.44 ng/mL 0.00-0.03 Troponin I (TnI) levels must be interpreted [...] failure, acidosis, acute neurological disease, and persistent tachyarrhythmia.POCT-GLUCOSE [id number] 07:09:00 Test Item Value Reference Range Comments POC-GLUCOSE METER (BEAKER) 147 mg/dL 70-110 TESTED AT [address] (test rqka=4598) [place] [id number] CREATINE KINASE (CK), TOTAL AND [id number] 07:06:00 Test Item Value Reference Range Comments CREATINE KINASE TOTAL (BEAKER) (test qgdx=594) 944 U/L 29-200 CREATINE KINASE-MB (BEAKER) (test cobd=448) 7.9 ng/mL 0.0-6.6 CREATINE KINASE-MB INDEX (BEAKER) (test ukce=293) 0.8 % CK-MB Reference Range:<6.7 Normal6.7-10.0 Borderline>10.0 AbnormalIRON, TIBC, % SAT. (WITHOUT FERRITIN)2018-05-15 07:01:00 Test Item Value Reference Range Comments IRON (BEAKER) (test eyjt=037) 10 ug/dL 40-160 TOTAL IRON BINDING CAPACITY (BEAKER) (test 180 ug/dL 250-450 ymgu=966) IRON % SATURATION (2) (BEAKER) (test fxrg=6155) 6 % 20-55 RETICULOCYTE [id number] 06:39:00 Test Item Value Reference Range Comments RETICULOCYTE COUNT PCT (BEAKER) (test vnzw=150) 1.5 % 0.5-1.7 BLOOD GAS, [id number] 06:35:00 Test Item Value Reference Range Comments PH ARTERIAL (BEAKER) (test pgfy=349) 7.36 7.35-7.45 PCO2 ARTERIAL (BEAKER) (test uvwe=088) 34 mmHg 35-45 PO2 ARTERIAL (BEAKER) (test hxoc=577) 183 mmHg 80-90 O2 SATURATION ARTERIAL (BEAKER) (test ugye=766) 99.2 % 96.0-97.0 HCO3 ARTERIAL (BEAKER) (test pcnq=843) 19 mmol/L 21-29 BASE EXCESS ARTERIAL (BEAKER) (test kiwi=103) -5.7 mmol/L -2.0-3.0 PATIENT TEMPERATURE (BEAKER) (test jtpe=6463) 37.8 C FIO2 (BEAKER) (test jlcb=4468) 40.0 % POCT-GLUCOSE [id number] 06:03:00 Test Item Value Reference Range Comments POC-GLUCOSE METER (BEAKER) 141 mg/dL 70-110 TESTED AT [facility] [address] [facility] (test zhxf=9769) [facility] [address] [id number] 06:03:00 Test Item Value Reference Range Comments MAGNESIUM (BEAKER) (test ikbh=298) 0.9 mg/dL 1.6-2.6 BASIC METABOLIC [id number] 06:03:00 Test Item Value Reference Range Comments SODIUM (BEAKER) (test 140 meq/L 136-145 gugp=426) POTASSIUM (BEAKER) (test 2.7 meq/L 3.5-5.1 adyk=639) CHLORIDE (BEAKER) (test 107 meq/L 98-107 lrab=530) CO2 (BEAKER) (test 15 meq/L 22-29 xctk=727) BLOOD UREA NITROGEN 32 mg/dL 7-21 (BEAKER) (test oela=849) CREATININE (BEAKER) (test 3.23 mg/dL 0.57-1.25 eoss=081) GLUCOSE RANDOM (BEAKER) 168 mg/dL 70-105 (test zkql=301) CALCIUM (BEAKER) (test 8.1 mg/dL 8.4-10.2 ivrp=251) EGFR (BEAKER) (test 15 mL/min/1.73 sq m ESTIMATED GFR IS NOT vncd=3480) ACCURATE CREATININE CLEARANCE IN PREDICTING GLOMERULAR FILTRATION RATE. ESTIMATED GFR IS NOT APPLICABLE FOR DIALYSIS PATIENTS. Specimen slightly [id number] 06:02:00 Test Item Value Reference Range Comments PHOSPHORUS (BEAKER) (test cfcq=204) 1.3 mg/dL 2.3-4.7 HEPATIC FUNCTION [id number] 06:00:00 Test Item Value Reference Range Comments TOTAL PROTEIN (BEAKER) (test rnjv=305) 6.1 gm/dL 6.0-8.3 ALBUMIN (BEAKER) (test qqgj=7569) 3.1 g/dL 3.5-5.0 BILIRUBIN TOTAL (BEAKER) (test siqg=451) 4.4 mg/dL 0.2-1.2 BILIRUBIN DIRECT (BEAKER) (test ejky=706) 3.5 mg/dL 0.1-0.5 ALKALINE PHOSPHATASE (BEAKER) (test ktav=286) 304 U/L 40-150 AST (SGOT) (BEAKER) (test dgrv=993) 134 U/L 5-34 ALT (SGPT) (BEAKER) (test yifr=509) 265 U/L 6-55 Specimen slightly ictericPOCT-GLUCOSE [id number] 05:57:00 Test Item Value Reference Range Comments POC-GLUCOSE METER (BEAKER) 288 mg/dL 70-110 TESTED AT [facility] [address] [place] [address] (test thwy=1907) [facility] [address] BLOOD GAS, [id number] 05:46:00 Test Item Value Reference Range Comments PH ARTERIAL (BEAKER) (test hvnj=346) 7.35 7.35-7.45 PCO2 ARTERIAL (BEAKER) (test qxlo=994) 31 mmHg 35-45 PO2 ARTERIAL (BEAKER) (test kjjs=115) 186 mmHg 80-90 O2 SATURATION ARTERIAL (BEAKER) (test ujky=627) 99.2 % 96.0-97.0 HCO3 ARTERIAL (BEAKER) (test dgin=015) 17 mmol/L 21-29 BASE EXCESS ARTERIAL (BEAKER) (test szuf=986) -7.6 mmol/L -2.0-3.0 PATIENT TEMPERATURE (BEAKER) (test cddz=1377) 37.8 C FIO2 (BEAKER) (test wplq=2562) 40.0 % PROTHROMBIN [id number] 05:11:00 Test Item Value Reference Range Comments PROTIME (BEAKER) (test rlhy=191) 25.9 seconds 11.7-14.7 INR (BEAKER) (test xfzp=014) 2.4 <=5.9 RECOMMENDED COUMADIN/WARFARIN INR THERAPY RANGESSTANDARD DOSE: 2.0 - 3.0 Includes: PROPHYLAXIS forvenous thrombosis, systemic embolization; TREATMENT for venous thrombosis and/or pulmonary embolus.HIGH RISK: Target INR is 2.5-3.5 for patients with mechanical heart valves.LACTIC ACID, VENOUS, WHOLE [id number] 04:55:00 Test Item Value Reference Range Comments LACTATE BLOOD VENOUS (2) (BEAKER) (test 9.1 mmol/L 0.5-2.2 gtux=4494) Effective 03/10/2016: Units/Reference Range ChangeNew: 0.5-2.2 mmol/L Previous: 5 -20 mg/dLSpecimen slightly ictericPOCT-GLUCOSE [id number] 04:50:00 Test Item Value Reference Range Comments POC-GLUCOSE METER (BEAKER) 169 mg/dL 70-110 TESTED AT [facility] [address] [facility] (test qmtk=8990) [facility] [address] POCT-GLUCOSE [id number] 03:12:00 Test Item Value Reference Range Comments POC-GLUCOSE METER (BEAKER) 152 mg/dL 70-110 TESTED AT [facility] [address] [facility] (test oihe=2704) [facility] [address] POCT-GLUCOSE [id number] 02:37:00 Test Item Value Reference Range Comments POC-GLUCOSE METER (BEAKER) 163 mg/dL 70-110 TESTED AT [facility] [address] [facility] (test xmbk=3446) [facility] [address] U/S, ABDOMINAL, [id number] 02:31:00Reason for exam:->assess common bile duct (wall thickening, sepsis)FINAL REPORT Ultrasound of the Abdomen, complete Clinical History: Abnormalgallbladder on CT. Sepsis. Discussion: Sonographic evaluation of the abdomen was performed. There isno prior study for direct comparison. Correlation is made to CT abdomen and pelvis performed earlieron the same day. Liver: 21.8 cm in [...] not assessed as the patient was sedated. Pancreas : Partially visualized, unremarkable. Ascites: None seen Spleen: Unable to adequately assess due to difficulty positioning thepatient. Kidneys: Right kidney 11.2 x 5.1 x 6.4 cm with cortical thickness of 1.6 cm. Left arommp94.7 x 5.6 x 6.1 cm with cortical thickness of 1.5 cm. Normal cortical echogenicity. No shadowingcalculus, no hydronephrosis. IVC/Aorta: Segments partially seen. Unremarkable. Impression:Limited exam.Sonographic evidence of acute cholecystitis. No biliary ductal dilatation.Hepatomegaly. Signed: Rashi Hdz Verified Date/Time: 05/15/2018 02:31:19 Reading Location: [address] Reading Room LACTIC ACID, VENOUS, WHOLE [id number] 02:06 :00 Test Item Value Reference Range Comments LACTATE BLOOD VENOUS (2) (BEAKER) (test 9.0 mmol/L 0.5-2.2 rwni=5559) Effective 03/10/2016: Units/Reference Range ChangeNew: 0.5-2.2 mmol/L Previous: 5 -20 mg/dLSpecimen slightly [id number] 01:31:00 Test Item Value Reference Range Comments LIPASE (BEAKER) (test lskb=878) 27 U/L 8-78 Specimen slightly ictericBLOOD GAS, [id number] 01:23:00 Test Item Value Reference Range Comments PH ARTERIAL (BEAKER) (test mkap=733) 7.33 7.35-7.45 PCO2 ARTERIAL (BEAKER) (test rygd=950) 32 mmHg 35-45 PO2 ARTERIAL (BEAKER) (test otly=422) 182 mmHg 80-90 O2 SATURATION ARTERIAL (BEAKER) (test kfvc=509) 99.1 % 96.0-97.0 HCO3 ARTERIAL (BEAKER) (test jivl=740) 16 mmol/L 21-29 BASE EXCESS ARTERIAL (BEAKER) (test jjwe=057) -8.1 mmol/L -2.0-3.0 PATIENT TEMPERATURE (BEAKER) (test hqyu=1079) 39.3 C FIO2 (BEAKER) (test zzjx=8811) 40.0 % CT, [id number] 00:55:00FINAL REPORT EXAM: CT of the abdomen and [...] of intravenous contrast. LOWER CHEST: Mild bibasilar dependentatelectasis. Atherosclerotic calcifications of the aorta and coronary arteries. Central venous catheter tip at the SVC/RA junction. Small hiatal hernia. Nonspecific mild circumferential wall thickeningof the distal esophagus.LIVER: Within normal limits.BILE DUCTS: Punctate nonobstructing stones in the common duct, without significant dilatation.GALL BLADDER: Cholelithiasis, diffuse mural thickening and pericholecystic haziness suspicious for acute cholecystitis.PANCREAS: Within normal limits.SPLEEN: Within normal limits.ADRENALS: Nonspecific left adrenal gland thickening. Unremarkable right adrenal gland.KIDNEYS/URETERS: Nonspecific bilateral perinephric stranding. Punctate nonobstructing right lower pole renal stone. No hydroureteronephrosis. URINARY BLADDER: Collapsed around a Marie catheter balloon.REPRODUCTIVE ORGANS: Status post hysterectomy. No adnexal masses. BOWEL/ MESENTERY: No bowel obstruction or abnormal wall thickening. Normal appendix.PERITONEUM/RETROPERITONEUM: No free air, free fluid or fluid collection. VESSELS: Calcification atherosclerosis. No abdominal aortic aneurysm. LYMPH NODES: No abdominal or pelvic lymphadenopathy.SOFT TISSUES: Small fat-containing umbilical hernia.BONES: Expansile lucent lesion in the T12 vertebral [...] nonemergent MRI is recommended. Signed: Rashi Hdz [facility] Verified Date/Time: 05/15/2018 00:55:09 Reading Location : [address] Transitional Reading Room CT, BRAIN, WITHOUT [id number] 00 :41:00FINAL REPORT EXAM: CT head without contrast. CLINICAL [...] There is generalized parenchymal volume loss. There aremoderate white matter microvascular ischemic changes. There are chronic bilateral basal ganglia and pontine lacunar infarcts. There is no large demarcated acute territorial infarct. There is intracranial calcific atherosclerosis There is no acute intracranial hemorrhage, extra-axial fluid collection,mass effect, herniation or obstructive hydrocephalus. The basal cisterns are patent. The visualized orbits are normal. The visualized paranasal sinuses and tympanomastoid cavities are clear. The skull base and calvarium are intact. There are indwelling nasogastric and endotracheal tubes. IMPRESSION: Moderate matter microvascular ischemic changes and chronic infarcts as described. No acute intracranial hemorrhage or mass effect. Signed: Rashi Hdz [facility] Verified Date/Time: 05/15/2018 00:41:07Reading Location: [address] Transitional Reading Room LACTIC ACID, VENOUS, WHOLE [id number] 23:54:00 Test Item Value Reference Range Comments LACTATE BLOOD VENOUS (2) (BEAKER) (test 9.4 mmol/L 0.5-2.2 wbki=5161) Effective 03/10/2016: Units/Reference Range ChangeNew: 0.5-2.2 mmol/L Previous: 5 -20 mg/dLSpecimen slightly ictericRAD, CHEST, 1 VIEW, NON [id number] 23:45: 00Reason for exam:->CENTRAL LINE PLACEMENT Is the patient ?->No Should this be performedat the bedside?->YesFINAL REPORT EXAMINATION: AP PORTABLE CHEST RADIOGRAPH CLINICAL INDICATION: Central line placement IMPRESSION: Compared with 05/14/2018. Tip of the new right jugular central line projects along the expected course of the superior vena cava. The tip of the endotracheal tube projects over the midline approximately 2 cm superior to the sally. Heart size is at the upper limit of normal for this projection. Mediastinal contours are grossly stable. Thin curvilinear opacities are again noted in the perihilar regions and lung bases, stable. No definite evidence of pulmonary edema, large pleural effusion or pneumothorax. Of note, catheter tubing projects over the lower neck with a coiled appearance. The catheter tubing may be external to the patient. However recommend clinical correlation as catheter tubing coiled within the patient's hypopharynx would also be consideration. Signed: Charbel [place] Verified Date/Time: 2017 23:45:29 Reading Location: [address] Reading Room PROTHROMBIN [id number] 23:43:00 Test Item Value Reference Range Comments PROTIME (BEAKER) (test jeqf=627) 34.9 seconds 11.7-14.7 INR (BEAKER) (test xdmj=258) 3.5 <=5.9 RECOMMENDED COUMADIN/WARFARIN INR THERAPY RANGESSTANDARD DOSE: 2.0 - 3.0 Includes: PROPHYLAXIS forvenous thrombosis, systemic embolization; TREATMENT for venous thrombosis and/or pulmonary embolus.HIGH RISK: Target INR is 2.5-3.5 for patients with mechanical heart valves.RAD, CHEST, 1 VIEW, NON [id number] 22:47:00Reason for exam:->ALTERED MENTAL STATUSReason for exam:-> FEVERReason for exam:->ett placementIs the patient ?->NoShould this be performed at the bedside?->YesFINAL REPORT Chest one view. Clinical history: Altered mental status and fever. ET tube placement. Comparison: None. Technique: A single frontal view of the chest was obtained.Findings:There is an ET tube in satisfactory position.The heart is normal in size. The aorta is uncoiled. There are low lung volumes. There is no focal pulmonary consolidation, pleural effusion or pneumothorax. There is no pulmonary edema. The bony thorax is unremarkable. Impression:ET tube is in satisfactory position.No focal pulmonary consolidation. Signed: Rashi Hdzeport Verified Date/Time: 05/14/2018 22:47:36 Reading Location: [facility] C013T [facility] Reading Room Electronicallysigned by: RASHI HDZ MD on 05/14/2018 10:47 PMURINALYSIS W/ [id number] 22:44:00 Test Item Value Reference Range Comments COLOR (BEAKER) (test qnib=591) Brown CLARITY (BEAKER) (test vvuv=444) Hazy SPECIFIC GRAVITY UA (BEAKER) (test kpke=537) 1.019 1.001-1.035 PH UA (BEAKER) (test iumj=011) 6.0 5.0-8.0 PROTEIN UA (BEAKER) (test aeep=930) 300 mg/dL Negative GLUCOSE UA (BEAKER) (test wtaj=580) 300 mg/dL Negative KETONES UA (BEAKER) (test pxic=939) Trace Negative BILIRUBIN UA (BEAKER) (test vsaz=726) Positive Negative BLOOD UA (BEAKER) (test cdhz=807) Moderate Negative NITRITE UA (BEAKER) (test yfnn=192) Negative Negative LEUKOCYTE ESTERASE UA (BEAKER) (test pfph=480) Negative Negative UROBILINOGEN UA (BEAKER) (test uxpw=776) 2.0 mg/dL 0.2-1.0 RBC UA (BEAKER) (test gprb=448) 2 /HPF WBC UA (BEAKER) (test bozj=283) 0 /HPF BACTERIA (BEAKER) (test vpfi=129) Few MUCUS (BEAKER) (test fxbj=0175) Occasional SQUAMOUS EPITHELIAL (BEAKER) (test sfyh=932) 1 /HPF SOURCE(BEAKER) (test xeyy=7614) Urine, Marie LACTIC ACID, VENOUS, WHOLE [id number] 22:34:00 Test Item Value Reference Range Comments LACTATE BLOOD VENOUS (2) (BEAKER) (test 10.4 mmol/L 0.5-2.2 qcqh=9146) Effective 03/10/2016: Units/Reference Range ChangeNew: 0.5-2.2 mmol/L Previous: 5 -20 mg/dLSpecimen slightly ictericCOMPREHENSIVE METABOLIC [id number] 21:55: 00 Test Item Value Reference Range Comments TOTAL PROTEIN (BEAKER) 7.6 gm/dL 6.0-8.3 Specimen slightly (test dhvy=246) hemolyzed ALBUMIN (BEAKER) (test 3.7 g/dL 3.5-5.0 Specimen slightly kfqp=0475) hemolyzed ALKALINE PHOSPHATASE 455 U/L 40-150 (BEAKER) (test mzzy=197) BILIRUBIN TOTAL (BEAKER) 5.0 mg/dL 0.2-1.2 Specimen slightly (test uqyt=578) hemolyzed SODIUM (BEAKER) (test 140 meq/L 136-145 hvwi=777) POTASSIUM (BEAKER) (test 3.4 meq/L 3.5-5.1 Specimen slightly ctxd=548) hemolyzed CHLORIDE (BEAKER) (test 101 meq/L 98-107 lkel=753) CO2 (BEAKER) (test 18 meq/L 22-29 xvtz=441) BLOOD UREA NITROGEN 28 mg/dL 7-21 (BEAKER) (test fepo=356) CREATININE (BEAKER) (test 2.75 mg/dL 0.57-1.25 Specimen slightly noor=111) hemolyzed GLUCOSE RANDOM (BEAKER) 283 mg/dL 70-105 (test cqlh=796) CALCIUM (BEAKER) (test 9.1 mg/dL 8.4-10.2 qbmb=708) AST (SGOT) (BEAKER) (test 196 U/L 5-34 Specimen slightly hdfo=132) hemolyzed ALT (SGPT) (BEAKER) (test 394 U/L 6-55 Specimen slightly zkqa=408) hemolyzed EGFR (BEAKER) (test 18 mL/min/1.73 sq m ESTIMATED GFR IS NOT pssg=3781) ACCURATE CREATININE CLEARANCE IN PREDICTING GLOMERULAR FILTRATION RATE. ESTIMATED GFR IS NOT APPLICABLE FOR DIALYSIS PATIENTS. Specimen moderately ictericCBC W/PLT COUNT & AUTO [id number] 21: 47:00 Test Item Value Reference Range Comments WHITE BLOOD CELL COUNT (BEAKER) (test gjxe=507) 8.8 K/ L 3.5-10.5 RED BLOOD CELL COUNT (BEAKER) (test daek=396) 5.11 M/ L 3.93-5.22 HEMOGLOBIN (BEAKER) (test lvyk=707) 12.8 GM/DL 11.2-15.7 HEMATOCRIT (BEAKER) (test zbih=744) 41.7 % 34.1-44.9 MEAN CORPUSCULAR VOLUME (BEAKER) (test fepr=225) 81.6 fL 79.4-94.8 MEAN CORPUSCULAR HEMOGLOBIN (BEAKER) (test 25.0 pg 25.6-32.2 nhrj=319) MEAN CORPUSCULAR HEMOGLOBIN CONC (BEAKER) (test 30.7 GM/DL 32.2-35.5 xxww=051) RED CELL DISTRIBUTION WIDTH (BEAKER) (test 15.2 % 11.7-14.4 hmpc=694) PLATELET COUNT (BEAKER) (test kepj=149) 265 K/CU MM 150-450 MEAN PLATELET VOLUME (BEAKER) (test swuw=360) 10.4 fL 9.4-12.3 NUCLEATED RED BLOOD CELLS (BEAKER) (test 0 /100 WBC 0-0 cggi=400) NEUTROPHILS RELATIVE PERCENT (BEAKER) (test 85 % xddw=282) LYMPHOCYTES RELATIVE PERCENT (BEAKER) (test 11 % cysa=996) MONOCYTES RELATIVE PERCENT (BEAKER) (test 3 % tfrs=281) EOSINOPHILS RELATIVE PERCENT (BEAKER) (test 0 % sayj=146) BASOPHILS RELATIVE PERCENT (BEAKER) (test 0 % drbl=455) NEUTROPHILS ABSOLUTE COUNT (BEAKER) (test 7.43 K/ L 1.56-6.13 qbfa=231) LYMPHOCYTES ABSOLUTE COUNT (BEAKER) (test 1.00 K/ L 1.18-3.74 ltfe=630) MONOCYTES ABSOLUTE COUNT (BEAKER) (test 0.28 K/ L 0.24-0.36 bknz=914) EOSINOPHILS ABSOLUTE COUNT (BEAKER) (test 0.00 K/ L 0.04-0.36 tsrk=451) BASOPHILS ABSOLUTE COUNT (BEAKER) (test 0.01 K/ L 0.01-0.08 sbap=406) IMMATURE GRANULOCYTES-RELATIVE PERCENT (BEAKER) 1 % 0-1 (test beon=6113) POCT-LACTIC ACID, [id number] 21:44:00 Test Item Value Reference Range Comments POC-LACTIC ACID, VENOUS 9.1 mmol/L 0.9-1.7 TESTED AT [facility] [address] (BEAKER) (test oqjj=5942) [facility] [address]
--- NOTE | 2018-08-18 20:05 | RAD REPORT ---
EXAM DESCRIPTION: CT - Head Brain Wo Cont - 08/18/2018 7:56 pm CLINICAL HISTORY: general weakness Trauma ASSISTANT BRANCH MANAGER COMPARISON: Head Brain Wo Cont dated 10/22/2016; Ct Stroke Brain Wo Cont dated 10/05/2016 TECHNIQUE: All CT scans are performed using dose optimization technique as appropriate and may inclu de automated exposure control or mA/KV adjustment according to patient size. FINDINGS: No intracranial hemorrhage, hydrocephalus or extra-axial fluid collection.Moderate general ized brain atrophy is present with mild periventricular and deep white matter chronic microvascular i schemic changes.No areas of brain edema or evidence of midline shift. The paranasal sinuses and mastoids are clear. The calvarium is intact. The vertebral arteries are gaye cified. IMPRESSION: No acute intracranial abnormality.
[2018-08-18] MEDS ORDERED: NA CHLORIDE 0.9% 250 ML ONE (20:16)
--- NOTE | 2018-08-18 20:20 | RAD REPORT ---
EXAM DESCRIPTION: RAD - Chest Single View - 08/18/2018 8:05 pm CLINICAL HISTORY: COUGH Chest pain. COMPARISON: Chest Single View dated 10/05/2016; CHEST PA AND LAT 2 VIEW dated 03/19/2015; CHEST SINGL E VIEW dated 01/08/2014; CHEST SINGLE VIEW dated 12/26/2013 FINDINGS: Portable technique limits examination quality. The lungs are underinflated with linear subsegmental atelectasis in the right lung base. No focal inf iltrate seen. The heart is normal in size. No displaced fractures.Right-sided venous catheter has tip in the right atrium.
[2018-08-18 21:42] LABS: Absolute Monocytes 0.4 K/uL (0.1-1.3); Absolute Neutrophil 4.4 K/uL (1.8-8.0); Basophils % 0.6 % (0-1.3); Eosinophils % 1.1 % (0-4.4); Hematocrit 30.1 % (36.0-45.0); Lymphocytes % 17.5 % (15.3-44.8); MCH 28.7 pg (27.0-35.0); MCV 84.9 fL (80-100); MPV 7.5 fL (7.6-11.3); Monocytes % 7.2 % (3.3-12.3); RBC Red Blood Cell Count 3.55 M/uL (3.86-4.86)
[2018-08-18 22:06] LABS: Protime INR 7.57
[2018-08-18 22:08] LABS: ALT/SGPT 25 U/L (12-78); AST/SGOT 13 U/L (15-37); Albumin 3.3 g/dL (3.4-5.0); Alkaline Phosphatase 86 U/L (45-117); BUN Blood Urea Nitrogen 13 mg/dL (7-18); Bicarbonate 28 mmol/L (21-32); Bilirubin Direct < 0.1 mg/dL (0-0.2); Bilirubin Total 0.3 mg/dL (0.2-1.0); Glucose Level 131 mg/dL (74-106); Magnesium 2.3 mg/dL (1.8-2.4); NT PRO-BNP 324 pg/mL (<125); Protein, Total 7.1 g/dL (6.4-8.2); Sodium Level 137 mmol/L (136-145); Troponin (Emerg Dept Use Only) < 0.02 ng/mL (0.0-0.045)
[2018-08-18 22:10] LABS: Urine Blood 3+ (NEG); Urine Glucose NEGATIVE (NEG); Urine Protein 2+ (NEG); Urine Specific Gravity >1.030 (1.005-1.030); Urine pH 5.5 (5.0-7.0)
[2018-08-18 22:11] LABS: Potassium 2.8 mmol/L (3.5-5.1)
[2018-08-18 22:22] LABS: Urine Bacteria LOADED /HPF (<20); Urine Culture Reflex Order REFLEXED
[2018-08-18] MEDS ORDERED: CEFEPIME 1 GM/100 ML BAG IV ONE (23:20)
--- NOTE | 2018-08-18 23:27 | EKG ---
Test Date: 2018-08-18 Test Time: 20:42:17 Shafting Cleaner: RUFUS MEASUREMENT RESULTS: Intervals: Rate: 71 MS: 218 QRSD: 96 QT: 560 QTc: 608 [place]: P: 72 MS: 218 QRS: 69 T: 61 INTERPRETIVE STATEMENTS: Sinus rhythm with 1st degree AV block Nonspecific ST and T wave abnormality Prolonged QT Abnormal ECG Compared to ECG 10/05/2016 19:10:53 First degree AV block now present ST (T wave) deviation now present Prolonged QT interval now present Electronically Signed On 08-18-18 23:26:47 CDT by Leeroy Blackmon
--- NOTE | 2018-08-19 00:28 | EDPHYS ---
Physician Documentation [facility] Name: Aury Ramos Age: 57 yrs Sex: Female : 1960 Arrival Date: 08/18/2018 Time: 19:11 Bed 30 Private MD: ED Physician Walker Hannah HPI: 08/18 19:50 This 57 yrs old Female presents to ER via EMS with complaints of weakness. cp 19:50 The patient's problem is reported as weakness, in the left upper extremity, in the left cp lower extremity. Onset: The symptoms/episode began/occurred 2 day(s) ago. Duration: The episode is continuous. Context: the episode(s) was witnessed, by a significant other, home health nurse, symptoms became apparent at an unknown time, patient with increased difficulty using left arm and leg to support and assist with transferring self. Associated signs and symptoms: Pertinent positives: cough, Pertinent negatives: diarrhea, fever. Patient's baseline: Motor: right-sided weakness, Ambulation: walks with assist only, uses walker, Speech: the patient makes incomprehensible sounds, The patient has a previous history of CVA. Historical: - Allergies: 19:41 No Known Allergies; rv - Home Meds: 20:15 acetaminophen 325 mg Oral cap 325 mg [Active]; amiodarone 400 mg Oral tab [Active]; rv Cholestyramine Light 4 gram oral powd [Active]; famotidine 20 mg Oral tab [Active]; folic acid 1 mg Oral tab [Active]; - PMHx: 19:41 CVA; Diabetes - NIDDM; Hypertension; plasmocytoma; rv - PSHx: 19:41 GALL BLADDER SURGERY; rv - Immunization history:: Adult Immunizations up to date. - Social history:: Smoking status: unknown. - Ebola Screening: : Patient negative for fever greater than or equal to 101.5 degrees Fahrenheit, and additional compatible Ebola Virus Disease symptoms Patient denies exposure to infectious person Patient denies travel to an Ebola-affected area in the 21 days before illness onset. ROS: 20:00 Constitutional: Negative for body aches, chills, fever, poor PO intake. cp 20:00 Eyes: Negative for injury, pain, redness, and discharge. cp 20:00 ENT: Negative for drainage from ear(s), ear pain, sore throat, difficulty swallowing, difficulty handling secretions. 20:00 Cardiovascular: Negative for chest pain, edema, palpitations. 20:00 Respiratory: Negative for cough, shortness of breath, wheezing. 20:00 Abdomen/GI: Negative for abdominal pain, vomiting, diarrhea, constipation, anorexia, black/tarry stool, rectal bleeding. 20:00 Back: Negative for pain at rest, pain with movement. 20:00 Skin: Negative for cellulitis, rash. 20:00 Neuro: Positive for weakness, of the left arm and left leg, Negative for altered mental status, seizure activity. 20:00 All other systems are negative. Exam: 20:05 Constitutional: The patient appears in no acute distress, alert, awake, cp non-diaphoretic, non-toxic, well developed, well nourished. 20:05 Head/face: Noted is right side facial droop from previous CVA. cp 20:05 Eyes: Periorbital structures: appear normal, Pupils: equal, round, and reactive to light and accomodation, Extraocular movements: intact throughout, Conjunctiva: normal, no exudate, no injection, Sclera: no appreciated abnormality, Lids and lashes: appear normal, bilaterally. 20:05 ENT: External ear(s): are unremarkable, Ear canal(s): are normal, clear, TM's: dullness, bilaterally, Nose: is normal, Mouth: Lips: dry, Oral mucosa: dry, Gums: bleeding, Tongue: is moist, Posterior pharynx: Airway: no evidence of obstruction, patent, swelling, is not appreciated, erythema, is not appreciated, exudate, is not appreciated. 20:05 Neck: ROM/movement: is normal, is supple, without pain, no range of motions limitations, no meningismus, no nuchal rigidity, Lymph nodes: no appreciated lymphadenopathy. 20:05 Chest/axilla: Inspection: normal, Palpation: is normal, no crepitus, no tenderness. 20:05 Cardiovascular: Rate: normal, Rhythm: regular, Edema: is not appreciated, JVD: is not appreciated. 20:05 Respiratory: the patient does not display signs of respiratory distress, Respirations: normal, no use of accessory muscles, no retractions, no splinting, no tachypnea, labored breathing, is not present, Breath sounds: decreased breath sounds, that are mild, are located in both bases, stridor, is not appreciated, wheezing: is not appreciated. 20:05 Abdomen/GI: Inspection: peg tube noted mid upper abdomen, Bowel sounds: active, all quadrants, Palpation: abdomen is soft and non-tender, in all quadrants, rebound tenderness, is not appreciated, voluntary guarding, is not appreciated, involuntary guarding, is not appreciated. 20:05 Musculoskeletal/extremity: Exam is negative for injury. 20:05 Skin: pressure ulcer noted buttocks. 20:05 Neuro: Mentation: responsive to voice able to follow commands, Cerebellar function: unable to test, Motor: strength is 4/5 in the left arm and left leg, Strength is 1/5 in the right arm and right leg, Sensation: unable to test. 20:45 Radiologist reports: no acute findings cp 20:50 ECG was reviewed by the Attending Physician. cp Vital Signs: 19:42 BP 113 / 63; Pulse 72; Pulse Ox 100% on R/A; rv 20:49 Pulse 70; Pulse Ox 99% on 3 lpm NC; rv 23:11 BP 103 / 61; Pulse 68; Resp 21; Temp 98.2; Pulse Ox 100% on 3 lpm NC; rv 23:49 BP 117 / 59; Pulse 69; Pulse Ox 99% on 3 lpm NC; rv 08/19 01:40 BP 117 / 60; Pulse 66; Pulse Ox 99% on 3 lpm NC; rv MDM: 08/18 19:20 Patient medically screened. cp 20:00 Differential diagnosis: CVA, TIA, metabolic disorder, drug effects, sepsis. cp 23:00 Data reviewed: vital signs, nurses notes, lab test result(s), EKG, radiologic studies, cp plain films. 23:00 Test interpretation: by ED physician or midlevel provider: ECG, plain radiologic cp studies. 08/19 00:20 Physician consultation: DR Keen, hospitalist \T\[facility], will accept patient with cp neurology consult to DR Rangel. 08/18 19:43 Order name: Basic Metabolic Panel cp 08/18 19:43 Order name: CBC with Diff; Complete Time: 22:13 cp 08/18 22:13 Interpretation: Normal except: RBC 3.55; HGB 10.2; HCT 30.1; RDW 17.3; MPV 7.5. cp 10/12 19:43 Order name: LFT's; Complete Time: 22:13 cp 08/18 22:14 Interpretation: Normal except: AST 13; ALB 3.3; GLOB 3.8; A/G 0.9. cp / 19:43 Order name: Magnesium; Complete Time: 22:13 cp 08/18 19:43 Order name: NT PRO-BNP; Complete Time: 22:13 cp 08/18 19:43 Order name: PT-INR; Complete Time: 22:13 cp 08/19 00:05 Interpretation: Reviewed. cp 08/18 19:43 Order name: Troponin (emerg Dept Use Only); Complete Time: 22:13 cp 08/18 19:43 Order name: Influenza Screen (a \T\ B); Complete Time: 21:54 cp 08/18 19:43 Order name: Blood Culture Adult (2) cp 08/18 19:43 Order name: Procalcitonin; Complete Time: 22:13 cp 08/18 19:43 Order name: Lactate; Complete Time: 22:13 cp 08/18 19:43 Order name: Basic Metabolic Panel; Complete Time: 22:13 EDMS 08/18 22:15 Interpretation: Normal except: K 2.8; GLUC 131; CRE 2.20; GFR 23. cp 08/18 19:49 Order name: Urine Microscopic Only; Complete Time: 22:50 cp 08/18 22:50 Interpretation: Normal except: UWBC TNTC; URBC 5-10; UBACT LOADED. cp 08/18 22:05 Order name: Urine Dipstick--Ancillary (enter results); Complete Time: 22:13 ms 08/18 19:43 Order name: CT Head Brain wo Cont; Complete Time: 21:54 cp 08/18 19:43 Order name: XRAY Chest (1 view); Complete Time: 21:54 cp 08/18 19:43 Order name: EKG; Complete Time: 19:43 cp 08/18 19:43 Order name: Cardiac monitoring; Complete Time: 20:47 cp 08/18 19:43 Order name: EKG - Nurse/Tech; Complete Time: 20:47 cp 08/18 19:43 Order name: IV Saline Lock; Complete Time: 20:47 cp 08/18 19:43 Order name: Labs collected and sent; Complete Time: 21:22 cp 08/18 19:43 Order name: O2 Per Protocol; Complete Time: 20:47 cp 08/18 19:43 Order name: O2 Sat Monitoring; Complete Time: 21:22 cp 08/18 19:49 Order name: Cath; Complete Time: 21:20 cp 08/18 22:23 Order name: Urine Culture EDMS EC/12 20:50 Rate is 71 beats/min. Rhythm is regular. MT interval is prolonged at 218 msec. QRS cp interval is normal. QT interval is prolonged at 560 msec. T waves are Inverted in leads V2, V3. Interpreted by me. Reviewed by me. Administered Medications: 19:49 CANCELLED (Physician Discretion): NS 0.9% 250 ml IV at bolus once cp 20:47 Drug: NS 0.9% 250 ml Route: IV; Rate: bolus; Site: left antecubital; rv 21:20 Follow up: IV Status: Completed infusion rv 23:00 Drug: Cefepime 1 grams Route: IVPB; Rate: 200 ml/hr; Infused Over: 30 mins; Site: right rv antecubital; 08/19 00:29 Follow up: IV Status: Completed infusion rv Disposition: 00:30 Chart complete. cp 14:50 Co-signature as Attending Physician, Walker Hannah MD I agree with the assessment and wa plan of care. Disposition: 08/19/18 00:27 Transfer ordered to [facility]. Diagnosis are Weakness - Left Arm and Left Leg, Hypokalemia, Abnormal coagulation profile - Coumadin Toxicity. - Reason for transfer: Higher level of care. - Accepting physician is DR Keen. - Condition is Stable. - Problem is new. - Symptoms are unchanged. Signatures: Dispatcher [employer] EDMS Vance Young PA PA cp Appiah, William, MD MD wa Vicente, Ronaldo, RN RN rv Corrections: (The following items were deleted from the chart) 08/18 19:49 19:43 NS 0.9% 250 ml IV at bolus once ordered. cp cp 08/19 00:29 00:27 08/19/2018 00:27 Transfer ordered to [facility]. Diagnosis is cp Weakness - Left Arm and Left Leg; Hypokalemia; Elevated INR. Reason for transfer: Higher level of care. Accepting physician is DR Keen. Condition is Stable. Problem is new. Symptoms are unchanged. cp 02:21 00:29 08/19/2018 00:27 Transfer ordered to [facility]. Diagnosis is rv Weakness - Left Arm and Left Leg; Hypokalemia; Abnormal coagulation profile - Coumadin Toxicity. Reason for transfer: Higher level of care. Accepting physician is DR Keen. Condition is Stable. Problem is new. Symptoms are unchanged. cp
--- NOTE | 2018-08-19 00:28 | ER ---
Nurse's Notes [facility] Name: Aury Ramos Age: 57 yrs Sex: Female : 1960 Arrival Date: 08/18/2018 Time: 19:11 Bed 30 Private MD: Diagnosis: Weakness-Left Arm and Left Leg;Hypokalemia;Abnormal coagulation profile-Coumadin Toxicity Presentation: 08/18 19:12 Presenting complaint: EMS states: " IS CONCERNED IF SHE HAS PNEUMONIA. SHE HAD A rv LOW GRADE FEVER A WEEK AGO AND PRODUCTIVE COUGH, WHITE SECRETION.". Transition of care: patient was not received from another setting of care. Onset of symptoms was August 18, 2018 at 19:00. Risk Assessment: Do you want to hurt yourself or someone else? Patient reports no desire to harm self or others. Initial Sepsis Screen: Does the patient meet any 2 criteria? No. Patient's initial sepsis screen is negative. Does the patient have a suspected source of infection? No. Patient's initial sepsis screen is negative. Care prior to arrival: None. 19:12 Method Of Arrival: EMS: [facility] rv 19:12 Acuity: WING 3 rv Historical: - Allergies: 19:41 No Known Allergies; rv - Home Meds: 20:15 acetaminophen 325 mg Oral cap 325 mg [Active]; amiodarone 400 mg Oral tab [Active]; rv Cholestyramine Light 4 gram oral powd [Active]; famotidine 20 mg Oral tab [Active]; folic acid 1 mg Oral tab [Active]; - PMHx: 19:41 CVA; Diabetes - NIDDM; Hypertension; plasmocytoma; rv - PSHx: 19:41 GALL BLADDER SURGERY; rv - Immunization history:: Adult Immunizations up to date. - Social history:: Smoking status: unknown. - Ebola Screening: : Patient negative for fever greater than or equal to 101.5 degrees Fahrenheit, and additional compatible Ebola Virus Disease symptoms Patient denies exposure to infectious person Patient denies travel to an Ebola-affected area in the 21 days before illness onset. Screenin:45 Abuse screen: Denies threats or abuse. Denies injuries from another. Nutritional rv screening: No deficits noted. Tuberculosis screening: No symptoms or risk factors identified. Fall Risk None identified. Assessment: 19:43 General: Appears in no apparent distress. comfortable, Behavior is calm, cooperative. rv Pain: Denies pain. Neuro: Level of Consciousness is awake, alert, obeys commands, Oriented to person, place, time, situation. Cardiovascular: Capillary refill < 3 seconds. Respiratory: Airway is patent. GI: PEG tube in place, clamped. Site clean. : No signs and/or symptoms were reported regarding the genitourinary system. EENT: No signs and/or symptoms were reported regarding the EENT system. Derm: Decubitus located on sacrum. 23:50 Reassessment: Patient appears in no apparent distress at this time. Patient and/or rv family updated on plan of care and expected duration. Pain level reassessed. Patient is alert, oriented x 3, equal unlabored respirations, skin warm/dry/pink. 08/19 01:42 Reassessment: Patient appears in no apparent distress at this time. Patient and/or rv family updated on plan of care and expected duration. Pain level reassessed. Patient is alert, oriented x 3, equal unlabored respirations, skin warm/dry/pink. Vital Signs: 08/18 19:42 BP 113 / 63; Pulse 72; Pulse Ox 100% on R/A; rv 20:49 Pulse 70; Pulse Ox 99% on 3 lpm NC; rv 23:11 BP 103 / 61; Pulse 68; Resp 21; Temp 98.2; Pulse Ox 100% on 3 lpm NC; rv 23:49 BP 117 / 59; Pulse 69; Pulse Ox 99% on 3 lpm NC; rv 08/19 01:40 BP 117 / 60; Pulse 66; Pulse Ox 99% on 3 lpm NC; rv ED Course: 08/18 19:11 Patient arrived in ED. rv 19:14 Triage completed. rv 19:19 Vance Young PA is PHCP. cp 19:19 Mikhail Pink MD is Attending Physician. cp 19:20 Walker Hannah MD is Attending Physician. cp 19:45 Arm band placed on right wrist. rv 19:45 Patient has correct armband on for positive identification. Bed in low position. Call rv light in reach. Side rails up X2. Adult w/ patient. Pulse ox on. NIBP on. 19:50 EKG done, by ED staff. mb4 19:56 CT Head Brain wo Cont In Process Unspecified. EDMS 20:04 X-ray completed. Patient tolerated procedure well. az 20:06 XRAY Chest (1 view) In Process Unspecified. EDMS 20:30 Inserted saline lock: 22 gauge in left antecubital area, using aseptic technique. rv 21:19 Warm blanket given. Verbal reassurance given. mb4 22:07 Notified Nurse Practitioner and/or Physician Biological Scientist of a critical lab result(s), PT bb 91.2, INR 7.57 Vance PRICE notified. 22:11 Notified Nurse Practitioner and/or Physician Biological Scientist of a critical lab result(s), bb potassium of 2.8 Vance PRICE notified. 23:27 Initiated transfer to [facility] spoke to Avani at transfer center. ms 23:[address] Dr with [facility]. ms 23:50 transfer approval from receiving facility. rv 08/19 00:30 Urine Culture Sent. rv 00:30 Basic Metabolic Panel Sent. rv 01:41 transfer transportation to receiving facility. rv 02:19 No provider procedures requiring assistance completed. Patient transferred, IV remains rv in place. intact. Administered Medications: 08/18 19:49 CANCELLED (Physician Discretion): NS 0.9% 250 ml IV at bolus once cp 20:47 Drug: NS 0.9% 250 ml Route: IV; Rate: bolus; Site: left antecubital; rv 21:20 Follow up: IV Status: Completed infusion rv 23:00 Drug: Cefepime 1 grams Route: IVPB; Rate: 200 ml/hr; Infused Over: 30 mins; Site: right rv antecubital; 08/19 00:29 Follow up: IV Status: Completed infusion rv Outcome: 00:27 ER care complete, transfer ordered by . cp 02:20 Transferred by ground EMS to [facility], [facility], Transfer form completed. rv X-rays sent w/ patient. 02:20 Condition: good 02:20 Instructed on the need for transfer. 02:21 Patient left the ED. rv Signatures: Dispatcher [employer] Nithya Wright, ROSA RN Larissa Vargas ms, Corey, PA PA cp Vicente, Ronaldo, RN RN rv Renae Tejada4 Chanelle Rogers
[2018-08-19 02:27] VITALS: TEMP 98.2
[2018-08-19 02:28] VITALS: O2SAT 99
[2018-08-19 02:29] VITALS: BP 117/60
== END 2018-08-19 02:21 | disposition short-term general hospital (02) ==
LOC: ER 19:04
DX: T45.514A Poisoning by anticoagulants, undetermined, initial encounter (principal); D68.9 Coagulation defect, unspecified; E87.6 Hypokalemia; Y92.9 Unspecified place or not applicable
CPT/HCPCS: 36415; 70450; 71045; 80048; 80076; 81003; 81015; 83605; 83735; 83880; 84145; 84484; 85025; 85610; 87040; 87077; 87086; 87088; 87186; 87804; 93005; 99285; J0692